=== PATIENT | male | born 1945 | race Caucasian/White ===

== ENCOUNTER 2017-01-16 03:29 | Emergency (ER) | payer MEDICARE ==
--- NOTE | 2017-01-16 09:56 | ER Document Report ---
ED Psych Disorder / Suicide - General Chief Complaint: Psych Problem Stated Complaint: PSYCH EVAL Notes: Patient is here for evaluation of depression and perhaps suicidal thoughts. Patient says he's been feeling depressed for quite some time now. Has not seen a counselor and is not on any current medications for a psychiatric disorders. His condition is of concern since he suddenly, and unexpectedly, had to put his 7-year-old dog to sleep yesterday. The dog was found to be ill and taken to the vet and a she was told that she had a terminal blood disorder and she was put to sleep. Patient is grieving over the loss of his dog. He says he has given some thoughts to suicide. He does own a rifle. Denies having attempted suicide in the past, however. He is and has children who live in [place] and other relatives that live in [place]. He says that he has financial concerns although he and his get by so long as he is living. Patient says that he misses his kids, who live in [place]. Last saw them a year or so ago. TRAVEL OUTSIDE OF THE [place] IN LAST 30 DAYS: No - Related Data Allergies/Adverse Reactions: Influenza Virus Vaccines Adverse Reaction (Unknown, Verified 01/16/17 04:15) Fever Past Medical History - Social History Smoking Status: Unknown if Ever Smoked Cigarette use (# per day): No Family History: Reviewed & Not Pertinent - Past Medical History Cardiac Medical History: Reports: Hx Coronary Artery Disease, Hx Hypercholesterolemia, Hx Hypertension, Other - 2 coronary artery stents Denies: Hx Heart Attack Pulmonary Medical History: Denies: Hx Asthma Endocrine Medical History: Reports: Hx Diabetes Mellitus Type 2, Hx Hypothyroidism Renal/ Medical History: Reports: Hx Renal InsufficiencyComment Only: Hx End Stage Renal Disease - 50% function of kidneys Psychiatric Medical History: Reports: Hx Depression Past Surgical History: Reports: Hx Cardiac Surgery - stents, Hx Coronary Stent, Hx Orthopedic Surgery - Immunizations Hx Diphtheria, Pertussis, Tetanus Vaccination: Yes Review of Systems - Review of Systems Notes: REVIEW OF SYSTEMS: CONSTITUTIONAL : Denies fever. EENT: Denies eye, ear, nose or mouth or throat pain or other symptoms. CARDIOVASCULAR: Denies chest pain. RESPIRATORY: Denies cough, chest congestion, or shortness of breath. GASTROINTESTINAL: Denies abdominal pain or nausea, vomiting, or diarrhea. GENITOURINARY: Denies difficulty or painful urinating, urinary frequency, blood in urine. MUSCULOSKELETAL: Denies back or neck pain. Denies joint pain or swelling. SKIN: Denies rash or skin lesions. NEUROLOGICAL: Denies LOC or altered mental status. Denies headache. Denies sensory loss or motor deficits. PSYCHIATRIC: Suffering from depression for "quite some time". No outpatient care previously. ALL OTHER SYSTEMS REVIEWED AND NEGATIVE. Physical Exam - Vital signs Vitals: Temp Pulse Resp Pulse Ox 97.6 F 87 20 100 01/16/17 04:11 01/16/17 04:11 01/16/17 04:11 01/16/17 04:11 Interpretation: Hypertensive - Notes Notes: PHYSICAL EXAMINATION: GENERAL: Well-appearing, in no acute distress. Blood pressure 180/64 in triage. Otherwise, all vital signs normal. HEAD: Atraumatic, normocephalic. NECK: Normal range of motion, supple. LUNGS: Breath sounds clear and equal bilaterally. HEART: Regular rate and rhythm without murmurs. ABDOMEN: Soft, nontender. No guarding or rebound. BACK: No tenderness throughout entire back. EXTREMITIES: Normal range of motion without pain. NEUROLOGICAL: Normal speech, normal gait. Normal sensory, motor, and reflex exams. Awake, alert, and oriented x3. Cranial nerves normal. PSYCH: Patient is visibly depressed. Near tears occasionally during our conversation. SKIN: Warm, dry, no rashes. Course - Re-evaluation Re-evalutation: 01/16/17 10:01 Patient will be assessed with lab studies and have asked for a mental health consult, hopefully for outpatient referral and care. 01/16/17 10:02 Patient did not take his medications yesterday or this morning so he is being given his home medicines to take at this time. 01/16/17 11:01 Patient evaluated by mental health and they feel he can be followed up as an outpatient if he wishes. They do not feel that he is acutely suicidal or in need of further services from them at this time. - Vital Signs Vital signs: Temp Pulse Resp BP Pulse Ox 97.8 F 94 14 182/70 H 98 01/16/17 08:28 01/16/17 08:28 01/16/17 08:28 01/16/17 08:28 01/16/17 08:28 - Laboratory Result Diagrams: 01/16/17 09:50 01/16/17 09:50 Laboratory results interpreted by me: 01/16/17 01/16/17 09:50 10:10 RBC 4.18 L Hgb 12.0 L Hct 35.8 L Seg Neutrophils % 79.3 H Urine Protein 100 H Urine Glucose (UA) 50 H Urine Ketones TRACE H Urine Blood SMALL H Ur Leukocyte Esterase TRACE H - EKG Interpretation by Me EKG shows normal: Sinus rhythm Rate: Normal Rhythm: NSR - At 83 Voltage: Increased voltage, Consistant with [facility] Discharge - Discharge Clinical Impression: Suicidal ideation Depression Qualifiers: Depression Type: unspecified Qualified Code(s): F32.9 - Major depressive disorder, single episode, unspecified Condition: Stable Disposition: HOME, SELF-CARE Additional Instructions: DEPRESSION: Your evaluation reveals that you have mental depression. While symptoms may be vague, they often include disturbance of sleep, fatigue, loss of appetite , and general loss of interest in life. While depression may be a side effect of drugs, or a reaction to a major change in your life, many cases have no known cause. If depression is acute, and related to a major loss in your life, you can expect it to clear completely with time. If you have been depressed a long time , are prone to repeated bouts of depression or low mood, or have been thinking of suicide, get help. Depression can be treated with anti-depressant medication and counselling. Long-term depression will often take a few weeks to clear, even with appropriate medication. Follow-up care is important. SUICIDAL IDEATION: Suicidal ideation is a common medical term for thoughts about suicide, which may be as detailed as a formulated plan, without the suicidal act itself. Although most people who undergo suicidal ideation do not commit suicide, some go on to make suicide attempts. The range of suicidal ideation varies greatly from fleeting to detailed planning, role playing, and unsuccessful attempts. While thoughts about suicide are common, most people do not carry out serious actions to commit suicide. Based upon your evaluation and discussion with you, we do not believe you are currently at risk to act upon your thoughts of suicide. You have agreed to return to the Emergency Department, at any time , if you feel inclined to act upon your suicidal thoughts. FOLLOW-UP CARE: If you have been referred to a physician for follow-up care, call the physician s office for an appointment as you were instructed or within the next two days. If you experience worsening or a significant change in your symptoms, notify the physician immediately or return to the Emergency Department at any time for re-evaluation. Mental health recommended follow-up at [facility]. At any time, if you feel you may do something harmful to herself or someone else , please return to the emergency department immediately for us to reevaluate your condition. Referrals: [facility] [Provider Group] - Follow up as needed
[2017-01-16 10:45] LABS: APPEARANCE,URINE SLIGHTLY-CLOUDY; BILIRUBIN,URINE NEGATIVE (NEGATIVE); GLUCOSE, URINE 50 mg/dL (NEGATIVE); KETONES,URINE TRACE mg/dL (NEGATIVE); LEUKOCYTE ESTERASE,URINE TRACE (NEGATIVE); NITRITE,URINE NEGATIVE (NEGATIVE); PROTEIN,URINE 100 mg/dL (NEGATIVE); URINE SPECIFIC GRAVITY 1.014; UROBILINOGEN,URINE NEGATIVE mg/dL (<2.0)
[2017-01-16 10:50] LABS: ABSOLUTE EOSINOPHILS # (AUTO) 0.1 10^3/uL (0.0-0.6); ABSOLUTE MONOCYTES (AUTO) 0.3 10^3/uL (0.1-1.4); ABSOLUTE NEUT (AUTO) 5.3 10^3/uL (1.7-8.2); BASOPHILS % (AUTO) 0.6 % (0-2); EOSINOPHILS % (AUTO) 0.8 % (0-6); HEMATOCRIT 35.8 % (37.9-51.0); HGB HCT DIFFERENCE 0.2; LYMPHOCYTES % (AUTO) 14.3 % (13-45); MEAN CORPUSCULAR HEMOGLOBIN 28.7 pg (27.0-33.4); MEAN CORPUSCULAR HGB CONC 33.5 g/dL (32.0-36.0); MEAN CORPUSCULAR VOLUME 86 fl (80-97); RED BLOOD COUNT 4.18 10^6/uL (4.35-5.55); RED CELL DISTRIBUTION WIDTH 13.7 % (11.5-14.0); SEGMENTED NEUTROPHILS % (AUTO) 79.3 % (42-78); WHITE BLOOD COUNT 6.6 10^3/uL (4.0-10.5)
[2017-01-16 11:05] LABS: URINE BARBITURATES SCREEN NEGATIVE; URINE METHADONE SCREEN NEGATIVE; URINE OPIATES LOW NEGATIVE; URINE PHENCYCLIDINE SCREEN NEGATIVE
[2017-01-16 11:10] LABS: ALANINE AMINOTRANSFERASE 41 U/L (21-72); ALBUMIN 4.6 g/dL (3.5-5.0); ALCOHOL 15 mg/dL (NONE DETECTED); ALKALINE PHOSPHATASE 74 U/L (38-126); ANION GAP 15 (5-19); ASPARTATE AMINO TRANSFERASE 34 U/L (17-59); BILIRUBIN,TOTAL 0.7 mg/dL (0.2-1.3); BLOOD UREA NITROGEN 26 mg/dL (7-20); CALCIUM 10.2 mg/dL (8.4-10.2); CARBON DIOXIDE 22 mmol/L (22-30); CHLORIDE 103 mmol/L (98-107); CREATININE RESULT 1.46 mg/dL (0.52-1.25); GLUCOSE 147 mg/dL (75-110); POTASSIUM 5.3 mmol/L (3.6-5.0); SODIUM 140.2 mmol/L (137-145); TOTAL PROTEIN 7.8 g/dL (6.3-8.2)
[2017-01-16 11:15] VITALS: BP 172/86
--- NOTE | 2017-01-16 11:25 | PSYCHOLOGICAL NOTE ---
Psych Note - Psych Note Psych Note: Patient is a 71 year old male who presented early this morning via EMS after his found him laying on the ground crying. She was reportedly concerned with his blood pressure as he denied taking his rx. Patient was reportedly despondent over the of his dog. Patient this morning states he was forced to make the decision to euthanize his dog yesterday after the dog abruptly fell ill. Patient states he is struggling with the grief over his dog, but also references his brother's a few months ago. Patient states his brother of a heart attack. Patient states this occurred in [place]. Patient denies any mental health history of outpatient or inpatient treatment. Patient denies wanting to follow up with an outpatient provider at this time to process his grief related sadness. Patient does report has had passive thoughts about suicide, but denies a plan. Patient referenced a shotgun in which he owns that is in the home. Patient's is bedside and states she has removed the shot gun. reports she is not concerned for his safety and that she would be agreeable to monitor patient and encourage follow up with a counselor. indicates that the patient has had "a lot of loss" and references 4 brothers who have . reports they are just ready to return home. Patient is A&O. Mood is sad with tearful affect. Patient denies current suicidal/homicidal ideations, intent, plan, or means. Patient denies A/V H; delusions not noted. Thought processes were organized. Conversational speech was low for rate, tone, and prosody. Intellectual abilities were estimated within average range. Attention and focus were fair. Insight, judgment, and impulse control were fair. Diagnosis: Deferred Patient is psychiatrically cleared for discharge and provided resources to assist in following up with counseling. Patient presents with acute sadness after the abrupt loss of his dog. Patient reports this is also causing him to remember watching his brothers hang a dog as children. Encouraged patient to process his grief, and also normalized his sadness and sense of loss. Patient' s reports no concerns for patient's safety and states she has his shotgun. I consulted with Dr. Bennett in regards to the care and management of this patient. ED MD is in agreement with disposition and recommendations.
--- NOTE | 2017-01-16 20:09 | EKG REPORT ---
SEVERITY:- ABNORMAL ECG - SINUS RHYTHM LEFT VENTRICULAR HYPERTROPHY BORDERLINE INFERIOR Q WAVES : Confirmed by: Nikia Zazueta 16-Jan-2017 20:08:22
== END 2017-01-16 11:13 | disposition home or self-care (01) ==
LOC: ER 03:29
DX: R45.851 Suicidal ideations (principal); F32.9 Major depressive disorder, single episode, unspecified
CPT/HCPCS: 36415; 80053; 80307; 81001; 85025; 93005; 93010; 99285

== ENCOUNTER 2017-03-19 02:51 | Emergency (ER) | payer MEDICARE ==
[2017-03-19] MEDS ORDERED: CEPHALEXIN 500 MG CAPSULE PO ONE (04:25)
--- NOTE | 2017-03-19 04:57 | ER Document Report ---
HPI - HPI Patient complains to provider of: finger infection Onset: Other - 3 days Onset/Duration: Persistent Quality of pain: Achy Pain Level: 4 Context: Patient complains of finger pain and swelling for the past 3 days. Patient denies any injury. Patient denies any fever Associated Symptoms: Other - Finger infection Exacerbated by: Movement Relieved by: Denies Similar symptoms previously: No Recently seen / treated by doctor: No - ROS ROS below otherwise negative: Yes Systems Reviewed and Negative: Yes All other systems reviewed and negative - CONSTITUTIONAL Constitutional: DENIES: Fever, Chills - MUSCULOSKELETAL Musculoskeletal: REPORTS: Extremity pain - right thumb, Swelling - DERM Skin Color: Erythema Skin Problems: None - NURSING COMMENTS Comment: pt c/c pain right thumb, thinks it may be infected from when he removed a hang nail., thumb is inflammed and red Past Medical History - General Information source: Patient - Social History Smoking Status: Never Smoker Cigarette use (# per day): No Chew tobacco use (# tins/day): No Frequency of alcohol use: None Drug Abuse: None Occupation: retired Lives with: Spouse/Significant other Family History: Reviewed & Not Pertinent Patient has suicidal ideation: No Patient has homicidal ideation: No - Past Medical History Cardiac Medical History: Reports: Hx Coronary Artery Disease, Hx Hypercholesterolemia, Hx Hypertension Denies: Hx Heart Attack Pulmonary Medical History: Denies: Hx Asthma Neurological Medical History: Denies: Hx Cerebrovascular Accident, Hx Seizures Endocrine Medical History: Reports: Hx Diabetes Mellitus Type 2, Hx Hypothyroidism Renal/ Medical History: Reports: Hx Renal Insufficiency. Denies: Hx Peritoneal Dialysis. Comment Only: Hx End Stage Renal Disease - 50% function of kidneys GI Medical History: Denies: Hx Hepatitis, Hx Hiatal Hernia, Hx Ulcer Psychiatric Medical History: Reports: Hx Depression Infectious Medical History: Denies: Hx Hepatitis Past Surgical History: Reports: Hx Cardiac Surgery - stents, Hx Coronary Stent, Hx Orthopedic Surgery. Denies: Hx Open Heart Surgery - CATH WITH 2 STENTS, Hx Pacemaker - Immunizations Hx Diphtheria, Pertussis, Tetanus Vaccination: Yes Vertical Provider Document - CONSTITUTIONAL Agree With Documented VS: Yes Exam Limitations: No Limitations General Appearance: WD/WN, No Apparent Distress - INFECTION CONTROL TRAVEL OUTSIDE OF THE [place] IN LAST 30 DAYS: No - HEENT HEENT: Atraumatic, Normocephalic - NECK Neck: Normal Inspection - RESPIRATORY Respiratory: No Respiratory Distress O2 Sat by Pulse Oximetry: 98 - CARDIOVASCULAR Pulses: Normal: Radial - MUSCULOSKELETAL/EXTREMETIES Musculoskeletal/Extremeties: MAEW, Tender - Patient with tenderness along nail bed of right thumb - NEURO Level of Consciousness: Awake, Alert, Appropriate Motor/Sensory: No Motor Deficit - DERM Integumentary: Warm, Dry Notes: Paronychia along right thumb nailbed Course - Vital Signs Vital signs: Temp Pulse Resp BP Pulse Ox 97.8 F 74 18 190/75 H 98 03/19/17 03:50 03/19/17 03:50 03/19/17 03:50 03/19/17 03:50 03/19/17 03:50 Procedures - Incision and Drainage Right Thumb Type: Simple I&D procedure: Betadine prep applied Incision Method: Incision made with needle Amount/type of drainage: moderate amount of purulent drainage Discharge - Discharge Clinical Impression: History of hypertension Paronychia Qualifiers: Laterality: right Qualified Code(s): L03.011 - Cellulitis of right finger Condition: Stable Disposition: HOME, SELF-CARE Instructions: Paronychia ([facility]), Post Incision and Drainage, Cephalexin ([facility]) Additional Instructions: Return immediately for any new or worsening symptoms Followup with your primary care provider, call tomorrow to make a followup appointment Your blood pressure was elevated today, recheck with your primary doctor and wants to days to this reevaluated Prescriptions: Cephalexin Monohydrate [Keflex 500 mg Capsule] 500 mg PO Q6H 5 Days Forms: Elevated Blood Pressure Referrals: ALEX MILLS MD [Primary Care Provider] - Follow up tomorrow
[2017-03-19] MEDS ORDERED: HYDROCODONE/ACETAMINOPHEN 5-325 MG 6 TAB/DSPK PO PRN (05:02)
[2017-03-19 05:53] VITALS: BP 181/71
== END 2017-03-19 05:52 | disposition home or self-care (01) ==
LOC: ER 02:51
PROC: 0H9FXZZ Drainage of Right Hand Skin, External Approach (ICD-10-PCS; principal; 2017-03-19)
DX: L03.011 Cellulitis of right finger (principal); M79.646 Pain in unspecified finger(s); M79.89 Other specified soft tissue disorders; I10 Essential (primary) hypertension
CPT/HCPCS: 99283; 73140; 10060; A9270 ×2

== ENCOUNTER 2018-10-02 10:03 | Emergency (ER) | payer MEDICARE ==
--- NOTE | 2018-10-02 10:51 | ER Document Report ---
HPI - HPI Pain Level: 5 Past Medical History - Social History Family History: Reviewed & Not Pertinent - Past Medical History Cardiac Medical History: Reports: Hx Coronary Artery Disease, Hx Hypercholesterolemia, Hx Hypertension Denies: Hx Heart Attack Pulmonary Medical History: Denies: Hx Asthma Neurological Medical History: Denies: Hx Cerebrovascular Accident, Hx Seizures Endocrine Medical History: Reports: Hx Diabetes Mellitus Type 2, Hx Hypothyroidism Renal/ Medical History: Reports: Hx Renal Insufficiency. Denies: Hx Peritoneal Dialysis. Comment Only: Hx End Stage Renal Disease - 50% function of kidneys GI Medical History: Denies: Hx Hepatitis, Hx Hiatal Hernia, Hx Ulcer Psychiatric Medical History: Reports: Hx Depression Infectious Medical History: Denies: Hx Hepatitis Past Surgical History: Reports: Hx Cardiac Surgery - stents, Hx Coronary Stent, Hx Orthopedic Surgery. Denies: Hx Open Heart Surgery - CATH WITH 2 STENTS, Hx Pacemaker - Immunizations Hx Diphtheria, Pertussis, Tetanus Vaccination: Yes Vertical Provider Document - INFECTION CONTROL TRAVEL OUTSIDE OF THE [place] IN LAST 30 DAYS: Yes Course - Vital Signs Vital signs: Temp Pulse Resp BP Pulse Ox 98.5 F 55 L 16 163/50 H 98 10/02/18 10:21 10/02/18 10:21 10/02/18 10:21 10/02/18 10:21 10/02/18 10:21 Discharge - Discharge Referrals: ALEX MILLS MD [Primary Care Provider] - Follow up as needed
--- NOTE | 2018-10-02 11:02 | ER Document Report ---
ED Medical Screen (RME) - General Chief Complaint: Hip Pain Stated Complaint: LEG PAIN Time Seen by Provider: 10/02/18 10:50 Mode of Arrival: Wheelchair Information source: Patient Notes: 73-year-old diabetic hypertensive male with bilateral peripheral edema is complaining of right hip pain that radiates into his right lower quadrant and right groin for 1 month. He has not talked to his primary care doctor about this. TRAVEL OUTSIDE OF THE [place] IN LAST 30 DAYS: Yes - Related Data Allergies/Adverse Reactions: Influenza Virus Vaccines Adverse Reaction (Unknown, Verified 10/02/18 10:14) Fever Past Medical History - Past Medical History Cardiac Medical History: Reports: Hx Coronary Artery Disease, Hx Hypercholesterolemia, Hx Hypertension Denies: Hx Heart Attack Pulmonary Medical History: Denies: Hx Asthma Neurological Medical History: Denies: Hx Cerebrovascular Accident, Hx Seizures Endocrine Medical History: Reports: Hx Diabetes Mellitus Type 2, Hx Hypothyroidism Renal/ Medical History: Reports: Hx Renal Insufficiency. Denies: Hx Peritoneal Dialysis. Comment Only: Hx End Stage Renal Disease - 50% function of kidneys GI Medical History: Denies: Hx Hepatitis, Hx Hiatal Hernia, Hx Ulcer Psychiatric Medical History: Reports: Hx Depression Infectious Medical History: Denies: Hx Hepatitis Past Surgical History: Reports: Hx Cardiac Surgery - stents, Hx Coronary Stent, Hx Orthopedic Surgery. Denies: Hx Open Heart Surgery - CATH WITH 2 STENTS, Hx Pacemaker - Immunizations Hx Diphtheria, Pertussis, Tetanus Vaccination: Yes Physical Exam - Vital signs Vitals: Temp Pulse Resp BP Pulse Ox 98.5 F 55 L 16 163/50 H 98 10/02/18 10:21 10/02/18 10:21 10/02/18 10:21 10/02/18 10:21 10/02/18 10:21 Course - Vital Signs Vital signs: Temp Pulse Resp BP Pulse Ox 98.5 F 55 L 16 163/50 H 98 10/02/18 10:21 10/02/18 10:21 10/02/18 10:21 10/02/18 10:21 10/02/18 10:21 Doctor's Discharge - Discharge Referrals: ALEX MILLS MD [Primary Care Provider] - Follow up as needed
--- NOTE | 2018-10-02 13:03 | ER Document Report ---
ED General - General Mode of Arrival: Wheelchair Information source: Patient TRAVEL OUTSIDE OF THE [place] IN LAST 30 DAYS: Yes - General Chief Complaint: Hip Pain Stated Complaint: LEG PAIN Time Seen by Provider: 10/02/18 10:50 Notes: Patient is a 73 year old male presenting to the emergency department complaining of right hip pain onset 3 weeks ago worsening recently. Patient states he is currently unable to lift his right leg off the bed and has pain with ambulation and movement. Patient states his pain is located in the right inguinal area and does not radiate into his testicles. Patient also complains of bilateral lower extremity swelling. He denies recent falls, numbness or tingling sensations, dysuria, urine or fecal incontinence or a history of back problems. Patient mentions having left shoulder pain, specifically stating when he reaches backwards he has difficulty reaching forward again. He further states he believes this is due to always laying on his left shoulder in attempt to alleviate his right hip pain. (NIKI RGAYSON) - Related Data Allergies/Adverse Reactions: Influenza Virus Vaccines Adverse Reaction (Unknown, Verified 10/02/18 10:14) Fever Past Medical History - General Information source: Patient - Social History Smoking Status: Never Smoker Cigarette use (# per day): No Chew tobacco use (# tins/day): No Smoking Education Provided: No Frequency of alcohol use: Rare Family History: Reviewed & Not Pertinent Patient has suicidal ideation: No Patient has homicidal ideation: No - Past Medical History Cardiac Medical History: Reports: Hx Coronary Artery Disease, Hx Hypercholesterolemia, Hx Hypertension Endocrine Medical History: Reports: Hx Diabetes Mellitus Type 2, Hx Hypothyroidism Renal/ Medical History: Reports: Hx Renal InsufficiencyComment Only: Hx End Stage Renal Disease - 50% function of kidneys Psychiatric Medical History: Reports: Hx Depression Past Surgical History: Reports: Hx Cardiac Surgery - stents, Hx Coronary Stent, Hx Orthopedic Surgery - Immunizations Hx Diphtheria, Pertussis, Tetanus Vaccination: Yes Review of Systems - Review of Systems Constitutional: No symptoms reported EENT: No symptoms reported Cardiovascular: No symptoms reported Respiratory: No symptoms reported Gastrointestinal: No symptoms reported Genitourinary: No symptoms reported Male Genitourinary: No symptoms reported Musculoskeletal: See HPI Skin: No symptoms reported Hematologic/Lymphatic: No symptoms reported Neurological/Psychological: No symptoms reported -: Yes All other systems reviewed and negative Physical Exam - Vital signs Vitals: Temp Pulse Resp BP Pulse Ox 98.5 F 55 L 16 163/50 H 98 10/02/18 10:21 10/02/18 10:21 10/02/18 10:21 10/02/18 10:21 10/02/18 10:21 - Notes Notes: GENERAL: Alert, interacts well. No acute distress. HEAD: Normocephalic, atraumatic. EYES: Pupils equal, round, and reactive to light. Extraocular movements intact. ENT: Oral mucosa moist, tongue midline. NECK: Full range of motion. Supple. Trachea midline. LUNGS: Clear to auscultation bilaterally, no wheezes, rales, or rhonchi. No respiratory distress. HEART: Regular rate and rhythm. No murmurs, gallops, or rubs. ABDOMEN: Soft, non-tender. Non-distended. Bowel sounds present in all 4 quadrants. EXTREMITIES: Moves all 4 extremities spontaneously. Able to lift the right leg approximately 1 inch off the bed. Able to bend the right knee by flexing at hip and knee 90 degrees each without assistance. Pain with logroll of right extremity, pain with internal rotation. No tenderness or pain to palpation of the sciatic nerve. Sensation is intact, no saddles anesthesia. 2+ pitting edema to the bilateral lower extremities to level of the knee, equal. Radial and dorsalis pedis pulses 2/4 bilaterally. No cyanosis. NEUROLOGICAL: Alert and oriented x3. Normal speech. Patellar DTRs 2+ bilaterally. PSYCH: Normal affect, normal mood. SKIN: Warm, dry. No rashes or lesions noted. (NIKI GRAYSON) Course - Re-evaluation Re-evalutation: 10/02/18 15:48 X-ray shows an irregularity and linear lucency in the posterior acetabulum of the right hip, this may be related to chronic degenerative change, if there is concern for possible fracture than CT of the hip may be indicated. CT scan of the right hip shows a ridge of osteophytes lateral posterior column which accounts for the plain film findings no fracture or dislocation no hematoma. I do not see any signs of nerve impingement, there is no evidence of spinal nerve compression. 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 He is able to ambulate, he is able to partially lift his right leg, I am able to move his right hip through full range of motion though it does cause pain. Straight leg test is negative. Patient will be discharged to home with muscle relaxers and encouraged to follow-up with orthopedic surgery as an outpatient. (DAVID RUANO) - Vital Signs Vital signs: Temp Pulse Resp BP Pulse Ox 97.4 F 66 18 199/68 H 98 10/02/18 16:09 10/02/18 16:09 10/02/18 16:09 10/02/18 16:09 10/02/18 16:09 Discharge - Discharge Clinical Impression: Right hip pain Osteoarthritis of right hip Qualifiers: Osteoarthritis type: unspecified Qualified Code(s): M16.11 - Unilateral primary osteoarthritis, right hip Condition: Stable Disposition: HOME, SELF-CARE Additional Instructions: Your x-ray looks like he might have a fracture of your right acetabulum however when we did a CAT scan it showed row of osteophytes in the posterior lateral wall. This is likely causing significant pain. You will need to see orthopedic surgery regarding possible solutions for this. They may recommend a hip replacement, they may recommend injections and they may not be able to do anything. I have prescribed muscle relaxers for your left shoulder pain, it may help with some of your right hip pain as well but the ultimate underlying problem is bony and it will not fix the underlying problem. Return to the emergency department for numbness, tingling, increasing difficulty walking, any difficulty with controlling your bowels or bladder. Prescriptions: Methocarbamol [Robaxin 750 mg Tablet] 750 mg PO ASDIR PRN #40 tablet PRN Reason: Referrals: ALEX MILLS MD [Primary Care Provider] - Follow up as needed AUGUSTA VALENTE DO [ACTIVE STAFF] - Follow up in 1 week Scribe Attestation: 10/02/18 18:29 I personally performed the services described in the documentation, reviewed and edited the documentation which was dictated to the scribe in my presence, and it accurately records my words and actions. (DAVID RUANO) Scribe Documentation - Scribe Written by Scribe:: Kyree Warren, 10/02/2018 13:04 acting as scribe for :: Arron
--- NOTE | 2018-10-02 13:50 | RADIOLOGY REPORT (SQ) ---
EXAM DESCRIPTION: HIP RIGHT AP/LATERAL COMPLETED DATE/TIME: 10/02/2018 1:36 pm REASON FOR STUDY: right hip pain, difficulty walking COMPARISON: None. NUMBER OF VIEWS: Two views. TECHNIQUE: AP pelvis and additional frog-leg view of the right hip. LIMITATIONS: None. FINDINGS: MINERALIZATION: Normal. RIGHT HIP: No fracture or dislocation. There is irregularity and linear radiolucency in the posterio r acetabulum. LEFT HIP: No fracture or dislocation. No worrisome bone lesions. PUBIS AND ISCHIUM: No fracture. PELVIS: No fracture. SACRUM: No fracture or dislocation. No worrisome bone lesions. LOWER LUMBAR SPINE: No fracture or dislocation. No worrisome bone lesions. No significant disc disea se. SOFT TISSUES: No findings. OTHER: Possible calculus in the left kidney versus focal dense material in the bowel. IMPRESSION: IRREGULARITY AND LINEAR RADIOLUCENCY IN THE POSTERIOR ACETABULUM OF THE RIGHT HIP. THIS MAY BE RELATED TO CHRONIC DEGENERATIVE CHANGE. IF THERE IS CONCERN FOR POSSIBLE FRACTURE, THEN CT O F THE HIP MAY BE INDICATED. TECHNICAL DOCUMENTATION: JOB ID: [id number] [employer]- All Rights Reserved Reading location - IP/workstation name: [email or web address]
--- NOTE | 2018-10-02 15:17 | RADIOLOGY REPORT (SQ) ---
EXAM DESCRIPTION: CT RT LOWER EXTREMITY WITHOUT COMPLETED DATE/TIME: 10/02/2018 3:02 pm REASON FOR STUDY: possible R posterior acetabular fracture COMPARISON: None. TECHNIQUE: CT scan of the right hip performed without intravenous or oral contrast. Images reviewed with soft tissue and bone windows. Reconstructed coronal and sagittal MPR images reviewed. All jonn ges stored on PACS. All CT scanners at this facility use dose modulation, iterative reconstruction, and/or weight based d osing when appropriate to reduce radiation dose to as low as reasonably achievable (ALARA). [facility]: Dose Right [facility]: CareDose [facility]: Dose Right [facility]: Teradose 4D [facility]: [employer] RADIATION DOSE: CT Rad equipment meets quality standard of care and radiation dose reduction techniq ues were employed. CTDIvol: 4.1 mGy. DLP: 98 mGy-cm. mGy. LIMITATIONS: None. FINDINGS: There is a ridge of osteophytes lateral posterior column which accounts for the plain film findings. No fracture or dislocation. No hematoma. IMPRESSION: Degenerative change. No acute findings. TECHNICAL DOCUMENTATION: JOB ID: [id number] Quality ID # [id number]: Final reports with documentation of one or more dose reduction techniques (e.g., Au tomated exposure control, adjustment of the mA and/or kV according to patient size, use of iterative reconstruction technique) 2010 [employer]- All Rights Reserved Reading location - IP/workstation name: [email or web address]
[2018-10-02 16:23] VITALS: BP 199/68
== END 2018-10-02 16:22 | disposition home or self-care (01) ==
LOC: ER 10:03
DX: M16.11 Unilateral primary osteoarthritis, right hip (principal); M25.551 Pain in right hip; M79.89 Other specified soft tissue disorders; M25.511 Pain in right shoulder; I25.10 Atherosclerotic heart disease of native coronary artery without angina pectoris; I10 Essential (primary) hypertension; E11.9 Type 2 diabetes mellitus without complications
CPT/HCPCS: 99284

== ENCOUNTER 2018-10-23 19:52 | Inpatient (IN) | payer MEDICARE ==
[2018-10-23] MEDS ORDERED: MORPHINE SULFATE 10 MG/ML INJ IV ONE ×2 (20:02→21:54)
[2018-10-23] MEDS ORDERED: NITROGLYCERIN/D5W 50 MG/250 ML RTUINJ IV PRN (20:02)
[2018-10-23 20:07] LABS: ABSOLUTE BASOPHILS # (AUTO) 0.1 10^3/uL (0.0-0.2); ABSOLUTE EOSINOPHILS # (AUTO) 0.2 10^3/uL (0.0-0.6); ABSOLUTE LYMPHOCYTES (AUTO) 1.9 10^3/uL (0.5-4.7); ABSOLUTE MONOCYTES (AUTO) 0.8 10^3/uL (0.1-1.4); BASOPHILS % (AUTO) 0.9 % (0-2); EOSINOPHILS % (AUTO) 1.9 % (0-6); HEMATOCRIT 20.4 % (37.9-51.0); LYMPHOCYTES % (AUTO) 24.1 % (13-45); MEAN CORPUSCULAR HEMOGLOBIN 24.2 pg (27.0-33.4); MEAN CORPUSCULAR HGB CONC 31.9 g/dL (32.0-36.0); MEAN CORPUSCULAR VOLUME 76 fl (80-97); MONOCYTES % (AUTO) 10.3 % (3-13); PLATELET COUNT 272 10^3/uL (150-450); RED BLOOD COUNT 2.69 10^6/uL (4.35-5.55); RED CELL DISTRIBUTION WIDTH 20.8 % (11.5-14.0); SEGMENTED NEUTROPHILS % (AUTO) 62.8 % (42-78); TOTAL CELLS COUNTED % (AUTO) 100 %
[2018-10-23 20:11] LABS: HEMOGLOBIN 6.5 g/dL (13.5-17.0)
[2018-10-23 20:17] LABS: ALANINE AMINOTRANSFERASE 14 U/L (21-72); ALBUMIN 3.9 g/dL (3.5-5.0); ALKALINE PHOSPHATASE 101 U/L (38-126); ANION GAP 17 (5-19); ASPARTATE AMINO TRANSFERASE 18 U/L (17-59); BILIRUBIN,DIRECT 0.2 mg/dL (0.0-0.4); BILIRUBIN,TOTAL 0.2 mg/dL (0.2-1.3); BLOOD UREA NITROGEN 42 mg/dL (7-20); CALCIUM 9.3 mg/dL (8.4-10.2); CARBON DIOXIDE 19 mmol/L (22-30); CHLORIDE 103 mmol/L (98-107); POTASSIUM 4.8 mmol/L (3.6-5.0)
--- NOTE | 2018-10-23 20:21 | RADIOLOGY REPORT (SQ) ---
EXAM DESCRIPTION: CHEST SINGLE VIEW COMPLETED DATE/TIME: 10/23/2018 8:12 pm REASON FOR STUDY: SOB; Chest pain COMPARISON: None. EXAM PARAMETERS: NUMBER OF VIEWS: One view. TECHNIQUE: Single frontal radiographic view of the chest acquired. RADIATION DOSE: NA LIMITATIONS: None. FINDINGS: LUNGS AND PLEURA: Mildly increased interstitial markings at the lung base may represent an element of pulmonary fibrosis. No focal consolidation. No large pleural effusion. No pneumothorax . MEDIASTINUM AND HILAR STRUCTURES: No masses. Contour normal. HEART AND VASCULAR STRUCTURES: Heart normal in size. Normal vasculature. BONES: No acute findings. HARDWARE: None in the chest. OTHER: No other significant finding. IMPRESSION: No evidence of acute cardiopulmonary abnormality. TECHNICAL DOCUMENTATION: JOB ID: [id number] [employer]- All Rights Reserved Reading location - IP/workstation name: [email or web address]
[2018-10-23 20:27] LABS: GLUCOSE 510 mg/dL (75-110)
[2018-10-23 20:28] LABS: CREATINE KINASE MB 3.35 ng/mL (<4.55); TROPONIN I 0.016 ng/mL
[2018-10-23] MEDS ORDERED: NORMAL SALINE 250 ML IV PRN (20:54)
[2018-10-23] MEDS ORDERED: LORAZEPAM INJ 2 MG/1 ML VIAL IV ONE ×2 (21:02→21:54)
[2018-10-23] MEDS ORDERED: INSULIN REG, HUMAN 100 UNIT/ML 3 ML VIAL (PYX) SUBCUT ONE (21:03)
--- NOTE | 2018-10-23 21:57 | ER Document Report ---
ED Cardiac - General Chief Complaint: Shortness Of Breath Stated Complaint: CHEST PAIN Time Seen by Provider: 10/23/18 20:00 Mode of Arrival: Ambulatory Information source: Patient TRAVEL OUTSIDE OF THE [place] IN LAST 30 DAYS: No - HPI Patient complains to provider of: Chest pain, Shortness of breath Chest pain location: Substernal Quality of pain: Heaviness, Pressure Severity now: Severe Severity at worst: Severe Chest pain precipitating factors: At Rest Cardiac risk factors: Hx MD Positive cardiac history: Yes Associated symptoms: Shortness of breath Exacerbated by: Denies Relieved by: Nothing Similar symptoms previously: Yes Recently seen / treated by doctor: No Notes: Patient is a 73-year-old male with a history of coronary artery disease, presenting to the emergency room today complaining of chest pain that started a few hours prior to emergency room arrival, he reports associated shortness of breath as well and swelling in his lower extremities, patient denies any fevers , no cough, cold or congestion, no nausea, vomiting or diarrhea, he denies any dark tarry stools or obvious blood in his stools, he does report an nosebleed a few days prior which was minimal - Related Data Allergies/Adverse Reactions: Influenza Virus Vaccines Adverse Reaction (Unknown, Verified 10/02/18 10:14) Fever Past Medical History - General Information source: Patient - Social History Smoking Status: Former Smoker Chew tobacco use (# tins/day): No Frequency of alcohol use: None Drug Abuse: None Family History: Reviewed & Not Pertinent Patient has suicidal ideation: No Patient has homicidal ideation: No - Past Medical History Cardiac Medical History: Reports: Hx Coronary Artery Disease, Hx Hypercholesterolemia, Hx Hypertension Denies: Hx Heart Attack Pulmonary Medical History: Denies: Hx Asthma Neurological Medical History: Denies: Hx Cerebrovascular Accident, Hx Seizures Endocrine Medical History: Reports: Hx Diabetes Mellitus Type 2, Hx Hypothyroidism Renal/ Medical History: Reports: Hx Renal Insufficiency. Denies: Hx Peritoneal Dialysis. Comment Only: Hx End Stage Renal Disease - 50% function of kidneys GI Medical History: Denies: Hx Hepatitis, Hx Hiatal Hernia, Hx Ulcer Psychiatric Medical History: Reports: Hx Depression Infectious Medical History: Denies: Hx Hepatitis Past Surgical History: Reports: Hx Cardiac Surgery - stents, Hx Coronary Stent, Hx Orthopedic Surgery. Denies: Hx Open Heart Surgery - CATH WITH 2 STENTS, Hx Pacemaker - Immunizations Hx Diphtheria, Pertussis, Tetanus Vaccination: Yes Review of Systems - Review of Systems Constitutional: No symptoms reported EENT: No symptoms reported Cardiovascular: See HPI Respiratory: See HPI Gastrointestinal: No symptoms reported Genitourinary: No symptoms reported Male Genitourinary: No symptoms reported Musculoskeletal: No symptoms reported Skin: No symptoms reported Hematologic/Lymphatic: No symptoms reported Neurological/Psychological: No symptoms reported -: Yes All other systems reviewed and negative Physical Exam - Vital signs Vitals: Resp Pulse Ox 33 H 100 10/23/18 19:56 10/23/18 19:56 Interpretation: Tachycardic - General General appearance: Alert In distress: Moderate - HEENT Head: Normocephalic, Atraumatic Eyes: Normal Conjunctiva: Normal Pupils: PERRL Pharynx: Normal Neck: Normal - Respiratory Respiratory status: No respiratory distress Chest status: Nontender Breath sounds: Normal Chest palpation: Normal - Cardiovascular Rhythm: Regular, Tachycardia Heart sounds: Normal auscultation Murmur: No - Abdominal Inspection: Normal Distension: No distension Bowel sounds: Normal Tenderness: Nontender Organomegaly: No organomegaly - Back Back: Normal, Nontender - Extremities General upper extremity: Normal inspection, Nontender, Normal color, Normal ROM , Normal temperature General lower extremity: Nontender, Edema - Pitting edema to bilateral lower extremities, Normal color, Normal ROM, Normal temperature. No: Jelena's sign - Neurological Neuro grossly intact: Yes Cognition: Normal Orientation: AAOx4 Radha Coma Scale Eye Opening: Spontaneous [place] Coma Scale Verbal: Oriented Radha Coma Scale Motor: Obeys Commands [place] Coma Scale Total: 15 Speech: Normal Motor strength normal: LUE, RUE, LLE, RLE Sensory: Normal - Psychological Associated symptoms: Anxious - Skin Skin Temperature: Warm Skin Moisture: Dry Skin Color: Pale Course - Re-evaluation Re-evalutation: 10/24/18 00:55 Patient was discussed with cardiology on-call, Dr. Marin, I discussed patient's presentation, is a history of coronary artery disease with previous stents in [facility], his EKG findings as well as his lab findings including a hemoglobin of 6.8 and an elevated troponin of 0.241, Dr. Marin is in agreement with admitting patient at this facility, recommends further anemia studies as his ischemic changes and chest pain are likely related to his low hemoglobin today, he recommends patient be started on a Cardizem drip for rate and blood pressure control, but avoid all blood thinners, do not start patient on a heparin drip at this time, this plan was discussed with patient and at bedside who are in agreement with admission at this facility, patient was then discussed with the hospitalist who will admit for further evaluation and treatment, patient is resting comfortably and pain-free at this time - Vital Signs Vital signs: Temp Pulse Resp BP Pulse Ox 98.3 F 18 179/77 H 97 10/23/18 23:11 10/24/18 00:46 10/24/18 00:46 10/24/18 00:46 - Laboratory Result Diagrams: 10/23/18 19:55 10/23/18 19:55 Laboratory results interpreted by me: 10/23/18 10/23/18 10/23/18 19:55 19:55 19:55 RBC 2.69 L Hgb 6.5 L Hct 20.4 L MCV 76 L MCH 24.2 L MCHC 31.9 L RDW 20.8 H Carbon Dioxide 19 L BUN 42 H Creatinine 1.69 H Est GFR ( Amer) 48 L Est GFR (Non-Af Amer) 40 L Glucose 510 H* POC Glucose ALT 14 L Lipase 646.4 H Crossmatch 10/23/18 10/23/18 20:21 23:37 RBC Hgb Hct MCV MCH MCHC RDW Carbon Dioxide BUN Creatinine Est GFR ( Amer) Est GFR (Non-Af Amer) Glucose POC Glucose 374 H ALT Lipase Crossmatch See Detail - Diagnostic Test Radiology reviewed: Image reviewed, Reports reviewed - EKG Interpretation by Me EKG shows normal: Sinus rhythm Rate: Normal Rhythm: NSR Additional EKG results interpreted by me: 10/24/18 00:56 ST depressions in leads V4 and V5 Critical Care Note - Critical Care Note Total time excluding time spent on procedures (mins): 50 Comments: Patient with chest pain, persistently hypertensive with tachycardia Discharge - Discharge Clinical Impression: NSTEMI (non-ST elevated myocardial infarction) Anemia Qualifiers: Anemia type: unspecified type Qualified Code(s): D64.9 - Anemia, unspecified CKD (chronic kidney disease) Qualifiers: Chronic kidney disease stage: unspecified stage Qualified Code(s): N18.9 - Chronic kidney disease, unspecified Chest pain Qualifiers: Chest pain type: unspecified Qualified Code(s): R07.9 - Chest pain, unspecified Condition: Serious Disposition: ADMITTED INPATIENT Admitting Provider: Hospitalist Unit Admitted: ICU Referrals: ALEX MILLS MD [Primary Care Provider] - Follow up as needed
--- NOTE | 2018-10-23 22:04 | RADIOLOGY REPORT (SQ) ---
EXAM DESCRIPTION: CT CHEST ANGIOGRAPHY WITHOUT THEN WITH IV CONTRAST COMPLETED DATE/TME: 10/23/2018 21:02 CLINICAL HISTORY: 73 years, Male, SOB COMPARISON: None. TECHNIQUE: 630 Images stored on PACS. All CT scanners at this facility use dose modulation, iterative reconstruction, and/or weight based dosing when appropriate to reduce radiation dose to as low as reasonably achievable (ALARA). Axial images were obtained with coronal and sagittal MIPS reconstructions [facility]: Dose Right [facility]: CareDose [facility]: Dose Right [facility]: Teradose 4D [facility]: [employer] LIMITATIONS: None. FINDINGS: The mediastinal vasculature enhances normally. There is no intraluminal filling defect to suggest pulmonary embolus. Negative for thoracic aortic aneurysm or dissection. Coronary artery calcifications are noted. The heart and pericardium are otherwise unremarkable. No mediastinal or hilar adenopathy. The visualized thyroid gland enhances normally. Limited evaluation of the upper abdomen demonstrates a 2.3 x 1.6 cm fat density lesion of the left adrenal gland, consistent with adenoma. Osseous structures are grossly intact. No pneumothorax. The visualized airways are patent. The lungs are clear. IMPRESSION: Negative for acute intrathoracic process. Negative for pulmonary embolus, thoracic aortic aneurysm, or dissection. TECHNICAL DOCUMENTATION: Quality ID # [id number]: Final reports with documentation of one or more dose reduction techniques (e.g., Automated exposure control, adjustment of the mA and/or kV according to patient size, use of iterative reconstruction technique) copyright 2011 [employer]- All Rights Reserved
[2018-10-23] MEDS ORDERED: NORMAL SALINE 1000 ML 1,000 ML IV ONE (22:07)
[2018-10-24] MEDS ORDERED: DILTIAZEM HCL/D5W 125 MG/125 ML RTUINJ IV PRN (00:53)
[2018-10-24] MEDS ORDERED: METOPROLOL TARTRATE PF/INJ 5 MG/5 ML SDV IV ONE (01:01)
[2018-10-24] MEDS ORDERED: IPRATROPIUM/ALBUTEROL 0.5-2.5 MG/3 ML AMPUL NEB PRN (01:39)
[2018-10-24] MEDS ORDERED: PROMETHAZINE HCL INJ 25 MG/1 ML VIAL IV PRN ×2 (01:39→09:00)
[2018-10-24] MEDS ORDERED: MAG HYDROX/AL HYDROX/SIMETH SUSP 30 ML UDCUP PO PRN (01:39)
[2018-10-24] MEDS ORDERED: PROMETHAZINE HCL 25 MG TABLET PO PRN (01:39)
[2018-10-24] MEDS ORDERED: ACETAMINOPHEN 325 MG TABLET PO PRN (01:39)
[2018-10-24] MEDS ORDERED: FUROSEMIDE INJ/PF 40 MG/4 ML SDV IV ONE (01:46)
[2018-10-24] MEDS ORDERED: NITROGLYCERIN 0.4 MG/TAB 25 TAB/BOTTLE SL PRN (01:48)
[2018-10-24] MEDS ORDERED: NITROGLYCERIN/D5W 50 MG/250 ML RTUINJ IV PRN (01:48)
[2018-10-24] MEDS ORDERED: DEXTROSE 50%-WATER 25 GM/50 ML DISP.SYRIN IV PRN ×2 (01:49)
[2018-10-24] MEDS ORDERED: GLUCAGON,HUMAN RECOMB 1 MG INJ IM PRN (01:49)
[2018-10-24] MEDS ORDERED: DEXTROSE 40% GEL 15 GM TUBE PO PRN ×2 (01:49)
[2018-10-24] MEDS ORDERED: INSULIN LISPRO 100 UNIT/ML 3 ML VIAL SUBCUT PRN ×2 (01:49→08:42)
[2018-10-24] MEDS ORDERED: BENZONATATE 100 MG CAPSULE PO ONE (01:54)
[2018-10-24] MEDS ORDERED: METOPROLOL TARTRATE PF/INJ 5 MG/5 ML SDV IV PRN (01:56)
[2018-10-24] MEDS ORDERED: METOPROLOL SUCCINATE 50 MG TAB.SR.24H PO ONE (01:57)
[2018-10-24 02:24] LABS: ABSOLUTE RETICS # 0.067 10^6/uL (0.028-0.122); RETICULOCYTE COUNT (AUTO) 2.49 % (0.66-2.85)
[2018-10-24 02:30] LABS: IRON(TIBC) 28.2 ug/dL (49-181)
--- NOTE | 2018-10-24 02:36 | PDOC H&P ---
History of Present Illness Admission Date/PCP: 10/24/2018 ALEX MILLS MD Patient complains of: Chest pain History of Present Illness: DONNA BERG is a 73 year old male with medical history of coronary arterial disease with [address], diabetes mellitus type 2, hypertension, comes to the emergency department complaining of chest pain. Patient tells me that his chest pain has a started a few months ago. Today patient was having some coffee at 7 PM, went to the garage looking for a tool and suddenly it started with retrosternal chest pain, he points from the epigastric area to the neck area including his throat, 10/10 in intensity, sharp and burning in nature, he was feeling a choking sensation, this was associated with shortness of breath, dizziness, denies nausea, vomiting, diaphoresis. Patient has seen his business applications analyst with apparently no new recommendations. His chest pain is usually exertional. Chest pain lasted about 2 hours and in the emergency department patient was initiated on nitroglycerin infusion, given a total of 10 mg of IV morphine, but it him I want to see him he was chest pain-free. Troponins has been elevated 0.0 16 and second 1 0.241. EKG shows sinus tachycardia, [address] depressions in the lateral leads. Patient has chronic lower extremities edema that has been worse from before. Patient also tells me that he is having episodes of blood in his mouth when he is brushing his teeth initially dark now bright red, denies any vomiting or coughing any blood. He denies any melanotic stools and his tells me that they are sometimes dark brown but no black tarry stools. Denies having any history of GI bleeding. Last EGD and colonoscopy 4 months ago positive only for a colonic polyp that was removed, Laboratory reveal hemoglobin of 6.5 and hematocrit of 20 In the ED patient also with uncontrolled blood sugars, initially 510 mg/dL. At the time I went to evaluate the patient I have noticed that the patient was saturating 88% on 3-1/2 L nasal cannula, patient does not have any history of chronic respiratory failure and is not on home oxygen. Chest x-ray negative and CTA is negative for PE. A total of 1250 IV fluids ordered in the ED. ProBNP 464, no prior to compare to. Initial blood pressure 188/85 but patient has missed his night medications. Past Medical History Cardiac Medical History: Reports: Coronary Artery Disease, Hyperlipidema, Hypertension Denies: Myocardial Infarction Pulmonary Medical History: Denies: Asthma Neurological Medical History: Denies: Seizures Endocrine Medical History: Reports: Diabetes Mellitus Type 2, Hypothyroidism Renal/ Medical History: Comment Only: End Stage Renal Disease - 50% function of kidneys GI Medical History: Denies: Hepatitis, Hiatal Hernia Psychiatric Medical History: Reports: Depression Hematology: Reports: Anemia - HX, TOOK IRON OTC, NOT PRESENTLY Denies: Sickle Cell Disease Past Surgical History Past Surgical History: Reports: Coronary Stent - To a stent in 2012, Orthopedic Surgery Denies: Pacemaker Social History Information Source: Patient Smoking Status: Former Smoker - Quit in 1979, used to smoke 3 packs/day Frequency of Alcohol Use: Occasional Hx Recreational Drug Use: No Hx Prescription Drug Abuse: No Past Social History Note: Lives with his who is at the bedside Family History Family History: Father and mother when they were around 100 years old, healthy. He is sister, and 2 brothers had colon cancer, once brother when he was 53 years old Parental Family History Reviewed: Yes - As above Children Family History Reviewed: Yes Sibling(s) Family History Reviewed.: Yes Medication/Allergy Home Medications: Amlodipine Besylate 10 mg PO DAILY 01/01/15 Aspirin [Aspirin 81 mg Chewable Tablet] 81 mg PO DAILY 01/01/15 Clopidogrel Bisulfate [Plavix 75 mg Tablet] 75 mg PO DAILY 01/01/15 Glimepiride [Amaryl 4 mg Tablet] 4 mg PO DAILY 01/01/15 Metoprolol Succinate [Toprol Xl 50 mg Tab.sr] 50 mg PO DAILY 01/01/15 Clonidine HCl 0.2 mg PO DAILY 07/07/16 Furosemide 20 mg PO DAILY 07/07/16 Cephalexin Monohydrate [Keflex 500 mg Capsule] 500 mg PO Q6H 5 Days capsule Methocarbamol [Robaxin 750 mg Tablet] 750 mg PO ASDIR PRN #40 tablet 10/02/18 Allergies/Adverse Reactions: Influenza Virus Vaccines Adverse Reaction (Unknown, Verified 10/02/18 10:14) Fever Review of Systems Review of Systems: As outlined above, all others negative Physical Exam Vital Signs: Temp Pulse Resp BP Pulse Ox 98 F 98 19 188/85 H 95 10/24/18 01:45 10/24/18 01:45 10/24/18 01:45 10/24/18 01:45 10/24/18 01:45 Intake & Output 10/22/18 10/23/18 10/24/18 06:59 06:59 06:59 Intake Total 1300 Output Total 1100 Balance 200 Weight 82.554 kg Additional comments: General appearance: Well-developed, well-nourished, alert and cooperative, and appears to be in no acute distress Head: Normocephalic Eyes: PEERL, EOMI, vision is grossly intact. Ears: External auditory canal and tympanic membranes clear, hearing grossly intact. Nose: No nasal discharge. Throat: Oral cavity and pharynx normal. No inflammation, swelling, exudate or lesions. Neck: Neck supple, nontender without lymphadenopathy, masses or thyromegaly. Cardiac: Normal S1 and S2. No S3, S4 or murmurs. Rhythm is regular and mildly tachycardic. There is pallor. Extremities are warm and well perfused. Capillary refill is less than 2 seconds. No carotid bruits. Thorax: No reproducible pain to palpation. Lungs: Clear to auscultation and percussion without rales, rhonchi, wheezing. Has moderate bilateral diminished breath sounds. Not using accessory muscles. Abdomen: Positive bowel sounds. Soft. Nondistended, nontender. No guarding or rebound. No masses. No hepatosplenomegaly Extremities: No significant deformity or joint abnormality. 2+ pitting lower extremities edema. Peripheral pulses intact. No varicosities. Neurological: Cranial nerves II through XII grossly intact. Strength and sensation symmetric and intact throughout. Reflexes 2+ throughout. Skin: Skin pale, normal texture and turgor with no lesions or eruptions, warm and dry. Psychiatric: The mental examination revealed the patient was oriented to person , place, and time. The patient was able to demonstrate good judgment on recent , without hallucinations, abnormal affect or abnormal behaviors. Results Laboratory Results: 10/23/18 19:55 10/23/18 19:55 10/23/18 10/23/18 10/23/18 19:55 19:55 19:55 WBC 8.0 RBC 2.69 L Hgb 6.5 L Hct 20.4 L MCV 76 L MCH 24.2 L MCHC 31.9 L RDW 20.8 H Plt Count 272 Seg Neutrophils % 62.8 Lymphocytes % 24.1 Monocytes % 10.3 Eosinophils % 1.9 Basophils % 0.9 Absolute Neutrophils 5.0 Absolute Lymphocytes 1.9 Absolute Monocytes 0.8 Absolute Eosinophils 0.2 Absolute Basophils 0.1 Sodium 139.0 Potassium 4.8 Chloride 103 Carbon Dioxide 19 L Anion Gap 17 BUN 42 H Creatinine 1.69 H Est GFR ( Amer) 48 L Est GFR (Non-Af Amer) 40 L Glucose 510 H* Calcium 9.3 Total Bilirubin 0.2 AST 18 ALT 14 L Alkaline Phosphatase 101 Total Protein 7.0 Albumin 3.9 Lipase 646.4 H Stool Occult Blood Blood Type Antibody Screen 10/23/18 10/23/18 20:21 20:36 WBC RBC Hgb Hct MCV MCH MCHC RDW Plt Count Seg Neutrophils % Lymphocytes % Monocytes % Eosinophils % Basophils % Absolute Neutrophils Absolute Lymphocytes Absolute Monocytes Absolute Eosinophils Absolute Basophils Sodium Potassium Chloride Carbon Dioxide Anion Gap BUN Creatinine Est GFR ( Amer) Est GFR (Non-Af Amer) Glucose Calcium Total Bilirubin AST ALT Alkaline Phosphatase Total Protein Albumin Lipase Stool Occult Blood NEGATIVE Blood Type O POSITIVE Antibody Screen NEGATIVE 10/23/18 10/23/18 19:55 23:30 CK-MB (CK-2) 3.35 Troponin I 0.016 0.241 NT-Pro-B Natriuret Pep 464 EKG Comments: Sinus tachycardia at 150 bpm, ST depressions in lateral leads Impressions: Chest X-Ray 10/23/18 19:55 IMPRESSION: No evidence of acute cardiopulmonary abnormality. Chest/Abdomen CTA 10/23/18 21:02 IMPRESSION: Negative for acute intrathoracic process. Negative for pulmonary embolus, thoracic aortic aneurysm, or dissection. TECHNICAL DOCUMENTATION: Quality ID # [id number]: Final reports with documentation of one or more dose reduction techniques (e.g., Automated exposure control, adjustment of the mA and/or kV according to patient size, use of iterative reconstruction technique) copyright 2011 [employer]- All Rights Reserved Assessment & Plan - Diagnosis (1) Severe anemia Is this a current diagnosis for this admission?: Yes Plan: Patient comes with symptomatic anemia, found with hemoglobin of 6.5 and hematocrit of 20, he tells me that for the last few months every time he brushed his teeth finds blood, initially dark blood and lately has been bright blood, he denies been coughing or vomiting at that time. Patient had an EGD and colonoscopy about 4 months ago and a polyp was removed. Patient follows with GI Dr. Obrien in [place]. I am sending the anemia workup. 2 units of PRBC has been ordered in the ED. Occult blood in the stools negative. No active bleeding. Unknown home medications as his did not bring them she does not remember the names. (2) Elevated troponin Is this a current diagnosis for this admission?: Yes Plan: Troponin 0.0 160 0.241, unclear if this is in a STEMI or this is demand ischemia. Patient tells me that he is having episodes of exertional chest pain and shortness of breath for the last few months, he has seen his business applications analyst with no changes in his medications. We will continue cycling his cardiac enzymes. Cardiology evaluation. Telemetry monitoring. Patient has been initiated on nitroglycerin infusion and I will continue with this as at this point patient is chest pain-free. Echocardiogram ordered. (3) Acute worsening of stage 3 chronic kidney disease Is this a current diagnosis for this admission?: Yes Plan: BUN 42 and creatinine 1.69, last creatinine was on 12/2016 with a creatinine 1.46 , seems that the patient is CKD stage III. Unclear if this is his new baseline or mild acute renal failure. Will reassess renal panel in the morning. (4) Hyperglycemia Is this a current diagnosis for this admission?: Yes Plan: Blood sugar 510 initially, given 10 units of insulin lispro subcu, subsequently blood sugar 374, will place the patient on Accu-Cheks every 3 hours with insulin lispro sliding scale and hypoglycemia protocol. We will resume his diabetic medication as soon as bring list of current medications. (5) Elevated lipase Is this a current diagnosis for this admission?: Yes Plan: Chronic elevation of lipase, 646 now, December 2014 was 520. (6) Hypoxia Is this a current diagnosis for this admission?: Yes Plan: We will name this as acute hypoxic respiratory failure as he is saturating 88% to 90% on 3-1/2 L nasal cannula, the patient does not have history of chronic respiratory failure nor is on oxygen at home, patient is very comfortable and is not complaining of shortness of breath, by the time I was talking to him he is oxygenation was dropping to the low 80s. So far chest x-ray is negative. By the time I left the room the nurse called me and tells me that the patient seems to be a little bit more hypoxic with mild cough and a little shortness of breath, probably he has some fluid overload, I ordered 40 mg of IV Lasix. A total of 1250 saline ordered in the ED. (7) CAD (coronary artery disease) Qualifiers: Associated angina: with unspecified angina Is this a current diagnosis for this admission?: Yes Plan: Patient has coronary artery disease with 2 stents placed in 2013, and creative his symptomatology in addition to severe anemia is due to anginal symptoms. Resume home medications. (8) Diabetes mellitus type 2 in obese Is this a current diagnosis for this admission?: Yes (9) Hypertension Qualifiers: Hypertension type: essential hypertension Qualified Code(s): I10 - Essential (primary) hypertension Is this a current diagnosis for this admission?: Yes Plan: Uncontrolled hypertension, blood pressure 188/85, 5 mg of IV metoprolol given, mild improvement I will give 50 grams of p.o. metoprolol. tells me that he missed his night antihypertensives but she does not remember the names. (10) DVT prophylaxis Is this a current diagnosis for this admission?: Yes Plan: Lovenox - Time Time Spent: 50 to 70 Minutes - Inpatient Certification Based on my medical assessment, after consideration of the patient's comorbidities, presenting symptoms, or acuity I expect that the services needed warrant INPATIENT care.: Yes I certify that my determination is in accordance with my understanding of Medicare's requirements for reasonable and necessary INPATIENT services [42 CFR 412.3e].: Yes Medical Necessity: Risk of Diagnosis Which Will Require Inpatient Eval/Care/ Monitoring - Risk of acute respiratory failure or worsening cardiac symptomatology with cardiac arrest - Plan Summary Plan Summary: Case discussed with patient and , agree with plan.
[2018-10-24 05:55] LABS: ABSOLUTE BASOPHILS # (AUTO) 0.1 10^3/uL (0.0-0.2); ABSOLUTE EOSINOPHILS # (AUTO) 0.1 10^3/uL (0.0-0.6); ABSOLUTE LYMPHOCYTES (AUTO) 1.2 10^3/uL (0.5-4.7); ABSOLUTE MONOCYTES (AUTO) 0.7 10^3/uL (0.1-1.4); ABSOLUTE NEUT (AUTO) 7.9 10^3/uL (1.7-8.2); BASOPHILS % (AUTO) 0.6 % (0-2); EOSINOPHILS % (AUTO) 0.8 % (0-6); HEMATOCRIT 26.9 % (37.9-51.0); LYMPHOCYTES % (AUTO) 11.7 % (13-45); MEAN CORPUSCULAR HEMOGLOBIN 25.1 pg (27.0-33.4); MEAN CORPUSCULAR HGB CONC 33.6 g/dL (32.0-36.0); MEAN CORPUSCULAR VOLUME 75 fl (80-97); MONOCYTES % (AUTO) 7.2 % (3-13); PLATELET COUNT 261 10^3/uL (150-450); RED CELL DISTRIBUTION WIDTH 20.3 % (11.5-14.0); SEGMENTED NEUTROPHILS % (AUTO) 79.7 % (42-78); TOTAL CELLS COUNTED % (AUTO) 100 %
[2018-10-24] MEDS ORDERED: HEPARIN SOD (PORCINE) 5,000 UNIT/ML 1 ML SYRINGE SUBCUT SCH (06:00)
[2018-10-24 06:05] LABS: INTERNATIONAL RATION (INR) 0.96; PARTIAL THROMBOPLASTIN TIME 26.9 SEC (23.5-35.8); PROTHROMBIN TIME 13.3 SEC (11.4-15.4)
[2018-10-24 06:13] LABS: ANION GAP 14 (5-19); BLOOD UREA NITROGEN 36 mg/dL (7-20); CALCIUM 9.5 mg/dL (8.4-10.2); CARBON DIOXIDE 22 mmol/L (22-30); CHLORIDE 108 mmol/L (98-107); GLUCOSE 303 mg/dL (75-110); SODIUM 143.7 mmol/L (137-145)
[2018-10-24 06:24] LABS: CREATINE KINASE MB 30.9 ng/mL (<4.55)
[2018-10-24 06:45] LABS: ARTERIAL BLOOD BASE EXCESS -0.5 mmol/L; ARTERIAL BLOOD H2CO3 1.02 mmol/L (1.05-1.35); ARTERIAL BLOOD HCO3 23.3 mmol/L (20-24); ARTERIAL BLOOD O2 SATURATION 94.2 % (94-98); ARTERIAL BLOOD PH 7.45 (7.35-7.45); ARTERIAL BLOOD PO2 66.4 mmHg (80-100); ARTERIAL BLOOD TOTAL CO2 24.3 mmol/L (23-27)
[2018-10-24 06:56] LABS: TROPONIN I 11.3 ng/mL
[2018-10-24 07:15] LABS: ARTERIAL BLOOD FIO2 2LNC
--- NOTE | 2018-10-24 07:42 | EKG REPORT ---
SEVERITY:- ABNORMAL ECG - SINUS TACHYCARDIA PROBABLE LVH WITH SECONDARY REPOL ABNRM ST DEPRESSION, CONSIDER ISCHEMIA, ANT-LAT LDS : Confirmed by: Diego Queen MD 24-Oct-2018 07:41:40
--- NOTE | 2018-10-24 07:42 | EKG REPORT ---
SEVERITY:- ABNORMAL ECG - SINUS TACHYCARDIA PROBABLE LVH WITH SECONDARY REPOL ABNRM ST DEPRESSION, CONSIDER ISCHEMIA, DIFFUSE LDS : Confirmed by: Diego Queen MD 24-Oct-2018 07:42:00
--- NOTE | 2018-10-24 07:42 | EKG REPORT ---
SEVERITY:- ABNORMAL ECG - SINUS TACHYCARDIA PROBABLE LVH WITH SECONDARY REPOL ABNRM ST DEPRESSION, CONSIDER ISCHEMIA, ANT-LAT LDS : Confirmed by: Diego Queen MD 24-Oct-2018 07:41:28
[2018-10-24] MEDS: NICARDIPINE HCL RTU, ISO-OS 20 MG/200 ML RTUINJ IV PRN ×2 (09:11→11:49)
[2018-10-24] MEDS ORDERED: LEVOTHYROXINE SODIUM 0.075 MG TABLET PO SCH (10:00)
--- NOTE | 2018-10-24 10:07 | TRANSFER SUMMARY E ---
Transfer Summary NAME: DONNA BERG : 1945 AGE: 73Y ADMITTED: 10/24/2018 TRANSFERRED: 10/24/2018 CODE STATUS: FULL CODE. PRIMARY CARE PROVIDER: Dr. Sally Roldan CLIENT COORDINATOR: [facility] TRANSFER DIAGNOSES: Includes: 1. Non-STEMI. 2. Coronary artery disease, history of 2 stents. 3. Acute blood loss anemia secondary to suspected GI losses. 4. Iron deficiency anemia. 5. Suspicion of peptic ulcer disease given persistent epigastric pain and mildly elevated lipase. 6. Poorly controlled diabetes mellitus type 2 with presenting glucose of 510. 7. Hypothyroidism. 8. Hypertensive emergency. 9. Chronic kidney disease stage 3 with a baseline creatinine of 1.5. CURRENT MEDICATIONS: Include: 1. Nitro drip, which is currently maxed out. 2. Cardene drip, just been started. 3. Phenergan 25 mg p.o. q. 4 hours p.r.n. 4. Tylenol 650 mg p.o. q. 4 hours p.r.n. 5. Maalox 30 mL p.o. q. 6 hours. 6. Novolog sliding scale coverage. 7. Metoprolol 5 mg IV q. 6 hours p.r.n. 8. Heparin 5000 units subcu q. 8 hours. DIET: Will be made n.p.o. for transfer. ACTIVITY: Will be on bedrest. CONDITION: Critical. DIAGNOSTICS: Lab values are as follows: Hematology obtained on 10/24/2018: WBCs are 10.0, hemoglobin is 9.0, hematocrit is 26.9, platelet count is 261,000. Coagulation obtained on 10/24/2018: PT is 13.3, INR is 0.96. ABG obtained on 10/24/2018: PH is 7.45, PCO2 is 34, PO2 is 66.4, bicarb is 23.3, total CO2 is 24.3. Chemistry obtained on 10/24/2018: Sodium is 143, potassium 5.0, chloride is 108, carbon dioxide 22, BUN 36, creatinine is 0.47, glucose 303, calcium is 9.5. Magnesium is pending. Iron is 2.8. TIBC is 405, percent saturation is 7, ferritin is 7.10, total bilirubin 0.2. AST 18, ALT is 14, Alk phos 101, CK is 716, troponin is 30.90. BNP is 390. Total protein 7.0, albumin 3.9, lipase is 317. B12 is 332, folate is 16.8. CTA of the chest obtained on 10/24/2018 reveals negative for acute intrathoracic process, negative for PE or TAA or dissection. Chest x-ray obtained on 10/24/2018 appears clear. PHYSICAL EXAMINATION: GENERAL: On examination, the patient is a well-developed, well-nourished 73-year-old male who is awake, alert, and oriented to person, place, time, and situation. He is verbal, conversational, does not appear to be in any acute distress. VITAL SIGNS: Temperature is 97.4, pulse 102, respirations 22, blood pressure is 186/81, oxygen saturation 92% on 3 L nasal cannula. SKIN: Warm and dry. No rash. Not diaphoretic. HEENT: Pupils equal, round, and reactive to light and accommodation. Conjunctiva is pink. No evidence of JVP. CARDIOVASCULAR SYSTEM: Heart is regular. There is no murmur or rub. CHEST: Clear, symmetrical, unlabored. ABDOMEN: Soft, nontender, nondistended. BACK: No CVA tenderness or sacral edema. EXTREMITIES: No clubbing, cyanosis, or edema. PSYCHIATRIC: Appropriate affect, pleasant mood. HISTORY OF PRESENT ILLNESS: The patient is a 73-year-old male with a past medical history of known coronary artery disease who is on dual antiplatelet therapy. The patient presented to the emergency department with a chief complaint of chest pain. The patient stated that his chest pain began gradually and has gotten worse over the past couple of months. The patient had some coffee at approximately 7 p.m., went into the garage looking for a tool, and suddenly started having retrosternal chest pain. The patient mainly described his pain, though, in the epigastrium and radiated to the neck area, including his throat, sharp, burning in nature. At times, the patient feels he was having a choking sensation. He did have associated shortness of breath, dizziness, but denied any nausea, vomiting, diaphoresis. The patient had recently seen his ice handler and did not receive any new recommendations. Chest pain is usually described as exertional and lasts about 2 hours in nature. While in the emergency department, the patient was started on a nitro drip given felt that he had some unstable angina. He did receive a total of 10 of IV morphine. The patient's troponin was found to be 0.016. His repeat troponin was 0.241. EKG was suggestive of a sinus tachycardia. I did note some ST depressions in lateral leads. The patient also states that he is having increasing lower extremity edema, but at this time, it appears overall improved. The patient did have an episode of bleeding. He says that he has been bleeding more so when he brushes his teeth, but denies coughing, vomiting any blood. No melenic stools. No melena, hematochezia. The patient denies having any history of GI bleed and had an EGD, colonoscopy 4 months ago that was positive only for a colon polyp. While in the emergency department, the patient was found to have a hemoglobin of 6.5, a hematocrit of 20, and given his blood pressure of 181/85 and indeterminate troponin. HOSPITAL COURSE: The patient was admitted initially to [facility]. The patient was typed and crossed and transfused 2 units of packed red blood cells with improvement of his hemoglobin, which trended up to 9.0 post transfusion. The patient had complete resolution of his chest pain, but remained maxed out on a nitro drip for blood pressure control. The patient was transferred down to the intensive care unit, and the patient's troponin bumped to 30.9. The patient's EKG did reveal some ST depression around midnight in the lateral leads; however, repeat EKG this morning, I cannot appreciate the same. The patient's chest pain and symptoms of dyspnea have appeared to have improved significantly. However, given the lack of gastroenterology support, interventional cardiology services, have recommended transfer to tertiary care center where the patient's ice handler is. The patient was also found to have uncontrolled diabetes. The patient is only on 2 oral agents at home, Actos, for which he really does not need to take with his heart failure, as well as Amaryl, and given his chronic kidney disease, really does not need to be on this anymore either. Most likely, the patient is going to have to be transitioned over to insulin. He has been on sliding scale coverage here since admission with significant improvement of his glucose. He is now down to 251 after routine insulin administration. The patient does have chronic kidney disease that appears his baseline. Creatinine is in the 1.5 range. It is to be noted that the patient did receive a CTA while he was here and is currently getting some fluids to help preserve renal function. TRANSFER PLANNING: The patient will be received at the services at [facility], and as always, the hospitalist at [facility] would like to thank [facility] for graciously participating in the care of this patient. Time spent on this transfer including assessment, plan, physical examination, patient education, review of records, specialty collaboration, and resource alignment is 70 minutes. DICTATING PHYSICIAN: JAMIE MORGAN NP [id number] PHY#: [id number] ID: [id number] JOB#: [id number] ACCT: [id number] cc:JAMIE MORGAN NP > MTDD
[2018-10-24] MEDS ORDERED: MAGNESIUM SULFATE/D5W 1 GM/100 ML RTUPB IV ONE (11:01)
[2018-10-24] MEDS ORDERED: MAGNESIUM SULFATE 1 GM/D5W 100 ML IV SCH (11:45)
[2018-10-24 11:56] LABS: CREATINE KINASE MB 31.8 ng/mL (<4.55)
[2018-10-24 12:00] LABS: TROPONIN I 20.2 ng/mL
[2018-10-24 12:12] VITALS: BP 144/57
--- NOTE | 2018-10-24 12:50 | XCELERA REPORT ---
[address] [address] Transthoracic Echocardiogram Report Name: DONNA BERG Age: 73 yrs Gender: Male : 1945 Patient Status: In[facility] Study Date: 10/24/2018 10:33 AM Procedure: A two-dimensional transthoracic echocardiogram with color flow and Doppler was performed. Study Quality: Good. Reason For Study: NSTEMI History: NSTEMI. Ordering Physician: JAMIE MORGAN Performed By: Abbey Lopez Interpretation Summary The left ventricle is normal in size. There is normal left ventricular wall thickness. LV EF is > than 65% Left ventricular systolic function is normal. The left ventricular wall motion is normal. There is no thrombus. There is no ventricular septal defect visualized. Doppler measurements suggest pseudonormalized left ventricular relaxation, which is associated with grade II/IV or mild to moderate diastolic dysfunction The right ventricle is normal in size and function. The right atrium is normal. The left atrial size is normal. The interatrial septum is intact with no evidence for an atrial septal defect. There is no evidence of mitral valve prolapse. There is no vegetation seen on the mitral valve. There is no mitral valve stenosis. There is a trace amount of mitral regurgitation The aortic valve is trileaflet. The aortic valve opens well. There is no aortic valvular vegetation. Visually no .Mildly elevated AV jet due to increased flow across the Aortic Valve. There is no LVOT obstruction. No aortic regurgitation is present. There is no tricuspid stenosis. No tricuspid regurgitation. Unable to calculate RVSP due lack of TR jet There is no pulmonic valvular stenosis. There is no pulmonic valvular regurgitation. The aortic root is normal size. There is no pericardial effusion. MMode/2D Measurements & Calculations RVDd: 3.6 cm LVIDd: 4.9 cm FS: 38.1 % Ao root diam: 3.3 cm IVSd: 0.96 cm LVIDs: 3.1 cm EDV(Teich): 114.5 ml Ao root area: 8.7 cm2 LVPWd: 1.0 cm ESV(Teich): 36.5 ml EF(Teich): 68.1 % Doppler Measurements & Calculations MV E max lalo: MV dec slope: Ao V2 max: LV V1 max P.5 cm/sec 216.5 cm/sec 7.6 mmHg MV A max lalo: 637.9 cm/sec2 Ao max PG: LV V1 max: 120.4 cm/sec MV dec time: 0.13 sec18.7 mmHg 137.6 cm/sec MV E/A: 0.68 PA V2 max: 162.3 cm/sec PA max P.5 mmHg Left Ventricle The left ventricle is normal in size. There is normal left ventricular wall thickness. LV EF is > than 65%. Left ventricular systolic function is normal. Doppler measurements suggest pseudonormalized left ventricular relaxation, which is associated with grade II/IV or mild to moderate diastolic dysfunction. The left ventricular wall motion is normal. There is no thrombus. There is no ventricular septal defect visualized. Right Ventricle The right ventricle is normal in size and function. Atria The right atrium is normal. The left atrial size is normal. The interatrial septum is intact with no evidence for an atrial septal defect. Mitral Valve There is no evidence of mitral valve prolapse. There is no vegetation seen on the mitral valve. There is no mitral valve stenosis. There is a trace amount of mitral regurgitation. Aortic Valve The aortic valve is trileaflet. The aortic valve opens well. There is no aortic valvular vegetation. Visually no .Mildly elevated AV jet due to increased flow across the Aortic Valve. There is no LVOT obstruction. No aortic regurgitation is present. Tricuspid Valve There is no tricuspid stenosis. No tricuspid regurgitation. Unable to calculate RVSP due lack of TR jet. Pulmonic Valve There is no pulmonic valvular stenosis. There is no pulmonic valvular regurgitation. Great Vessels The aortic root is normal size. Effusions There is no pericardial effusion. : JAMIE MORGAN > [place]
--- NOTE | 2018-10-24 13:06 | EKG REPORT ---
SEVERITY:- ABNORMAL ECG - SINUS RHYTHM PROBABLE LVH WITH SECONDARY REPOL ABNRM : Confirmed by: Diego Queen MD 24-Oct-2018 13:05:50
--- NOTE | 2018-10-24 13:37 | PDOC CONSULTATION ---
Consultation-Blank Consultation: CARDIOLOGY CONSULTATION by Dr. Angeles Marin on 10/24/2018. Patient seen at 11:15 AM. 75 minutes spent on the patient with more than 50% of the time spent in direct patient care. REASON FOR CONSULTATION: Patient with history of coronary artery disease, 2 stents in the right coronary artery in 2013, admitted with chest pain, severe anemia, and elevated troponin I consistent with non-ST elevation NJ. HISTORY OF PRESENT ILLNESS: Patient is a 73-year-old male, with known history of coronary artery disease, history of 2 stents in the right coronary artery in 2013, hypertension, diabetes mellitus, and chronic kidney disease, states that since the past 3-4 months has been having progressively increasing chest burning on exertion. He also complains of fatigue and weakness. And also some swelling in the right which is now increased. 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 This continued until he came to the emergency room. He also noted associated diaphoresis, shortness of breath, and generalized weakness. He also states that he had generalized fatigue, which started over the past few months. He has also been having decreased effort tolerance since the few months mentioned earlier. Although he had dizziness, with the chest pain yesterday he did not have a syncopal episode. He was not aware of any palpitations. In the emergency room is found to have a hemoglobin of 6.5 and initial troponin I was elevated. He also had a CAT scan of his chest with contrast which showed no evidence of pulmonary emboli. His subsequent blood pressure was high and his troponin was raising further, hence the patient was transferred to the ICU to be started on a Cardene drip. This did bring his blood pressure down. He has been discussed by the hospitalist with [facility], and arrangements have been made for the patient to be transferred there. PAST MEDICAL HISTORY: History of hypertension. History of coronary artery disease. He states he had no myocardial infarction, but had a stress test which was abnormal and subsequently had 2 stents placed in the right coronary artery. This was in 2013. He does not remember when he last had a stress test. He states he has been fairly active without any symptoms until about 3-4 months ago, when he started having exertional chest burning as mentioned earlier , and also generalized fatigue, and decreased effort tolerance. He also had shortness of breath on walking short distances. He also has had mild edema over the few months which is now increased. He has a history of diabetes mellitus, and also chronic kidney disease. He has no history of TIA or CVA. There is no history of thyroid disease. There is no history of asthma or COPD. There is no history of sleep apnea. PAST SURGICAL HISTORY: He has a history of right shoulder surgery. Carpal tunnel surgery in the left wrist. He is also had eye surgery in the form of retinal laser surgery, and vitreotectomy. SOCIAL HISTORY: He stopped smoking long time ago. There is no history of EtOH abuse. FAMILY HISTORY: There is no history of coronary artery disease in the family, but there is a history of hypertension and diabetes mellitus. Allergies: No known allergies. DISPOSITION: The patient is a full code. His is his surrogate healthcare decision maker. REVIEW OF SYSTEMS: Constitutional: Denies any fever chills or rigors. Complains of generalized fatigue and weakness especially over the last few months which is increasing yesterday. Head denies headaches or head injury. Eyes no history of MAA diplopia no history of amaurosis fugax. EARS: No history of hearing loss. No history of tinnitus. No history of recurrent ear infections. NOSE: No history of nosebleeds. No history of hayfever. MOUTH: No history of altered taste sensation. No ulcers in the mouth. No bleeding from the gums. THROAT: No odynophagia or dysphagia. No recurrent sore throats. SKIN: No history of pruritus. No history of eczema. No history of yellowish discoloration of the skin. NECK: No history neck pain. No goiter. No swelling in the neck. LUNGS: No history of wheezing. No history of cough or sputum production. No history of COPD or asthma no history of sleep apnea. No history of pulmonary embolism. No pleuritic chest pain no hemoptysis. CARDIAC: History of coronary artery disease, no history of NJ. Patient admitted with exertional angina, most likely there is restenosis of the stent, but the patient is also very anemic. The patient had non-ST elevation this admission. There is no prior history of congestive heart failure. He has had 2 stents in the right coronary artery in 2013. Although he denies history of NJ. There is no history of palpitations or syncope. No history of cardiac arrhythmia. Since the past few months he has been having chronic leg edema which is recently increased. He has no history of syncope ENDOCRINE: History of non-insulin dependent diabetes mellitus type 2. No history of polydipsia polyuria. His blood sugar is uncontrolled. He has no history of thyroid disease. No history of heat or cold intolerance. GI: The patient states last pill of days he has woken up with some blood in the mouth, but is not very descriptive descriptive about this. He denies any nausea or vomiting. He has a history of GERD. He has not taking any nonsteroidal anti-inflammatory agents. He has no prior history of GI bleed. His stool occult blood is negative but workup shows that he has iron deficiency anemia. He states his stools are dark brown but not melanotic. He has no hematochezia or hematemesis. There is no history of fatty food intolerance. He states the burning starts in the epigastrium goes up into the throat, and this is with exertion. Certain foods also bring out the same sort of burning. No altered bowel movements. MUSCULOSKELETAL: Denies arthritis or collagen vascular disease. RENAL: He states that his kidneys are working only 50%. He has chronic kidney disease. Denies symptoms a UTI. No history of symptoms of enlarged prostate. No history of hematuria pyuria or dysuria. Metabolic history of hyperlipidemia present no history of obesity. No history of gout. 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 No history of headaches migraines or seizures. No history of gait imbalance. PSYCHIATRIC: No history of anxiety or depression. No history of suicidal ideation. No history of homicidal ideation. VASCULAR: No history of calf or buttock claudication. No history of DVT. HEMATOLOGICAL. No history of bleeding diathesis or clotting disorders. The patient admitted with severe iron deficiency anemia. PHYSICAL EXAMINATION: The patient is well-built and well-nourished. He is at present in no acute distress. He denies any chest pain or discomfort or shortness of breath, and at present his blood pressure is much better controlled now. 10/24/18 10/24/18 10/24/18 05:30 06:00 06:30 Temperature Temperature Source Pulse Rate Heart Rate ( 96 Monitors) Respiratory Rate Blood Pressure 206/92 H 186/81 H [Upper Arm] Blood Pressure 130 116 Mean [Upper Arm ] Blood Pressure Supine Position [Upper Arm] O2 Sat by Pulse Oximetry Oxygen Delivery Method ( includes room air) Oxygen Flow Rate O2 Sat by Pulse 98 Oximetry by Telemetry 10/24/18 10/24/18 07:00 12:00 Temperature 97.7 F Temperature Oral Source Pulse Rate 92 Heart Rate ( Monitors) Respiratory 23 H Rate Blood Pressure 144/57 H [Upper Arm] Blood Pressure 86 Mean [Upper Arm ] Blood Pressure Position [Upper Arm] O2 Sat by Pulse 94 Oximetry Oxygen Delivery Nasal Cannula Method ( includes room air) Oxygen Flow 2 Rate O2 Sat by Pulse 94 Oximetry by Telemetry HEAD: Head is atraumatic, normocephalic. EYES: Pupils are equal round regular, reactive to light and accommodation. Extraocular movements are normal. There is conjunctival pallor present. There is no scleral icterus. EARS: Clear tympanic membranes are intact. External auditory canals are clear. NOSE: There is no deviated nasal septum. There is no inflammation of the nasal mucous membrane. MOUTH: Mucous membranes of mouth are moist, tongue is moist, and no ulcers in the mouth. THROAT: There is no redness of the oropharynx. There is no exudates. SKIN: There is no petechia or ecchymosis. There is no skin rashes or skin lesions. NECK: Neck is supple. There is no JVD. Carotids are equal there is no bruit. There is no lymphadenopathy. There is no goiter. Trachea central. LUNGS: There is no accessory muscles of respiration in use. Lungs are clear without any rhonchi rales or wheezing. There is no chest wall tenderness. HEART: S1-S2 is heard. There is no S3 gallop there is no S3 gallop. There is systolic murmur in the left sternal border and the apex without radiation. There is no rub. ABDOMEN: Soft. Nontender. There is no hepatosplenic megaly. Bowel sounds are well heard. There is no rebound guarding or rigidity. EXTREMITIES: Femorals are well felt. There is no femoral bruits. Leg pulses well felt. There is trace to mild pedal edema bilaterally. There is no DVT or cellulitis. There is no calf tenderness. There is no cyanosis or clubbing. Capillary refill is normal. 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 PSYCHIATRIC the patient judgment and insight are intact his affect is normal. 10/23/18 10/23/18 10/23/18 19:55 19:55 19:55 WBC 8.0 RBC 2.69 L Hgb 6.5 L Hct 20.4 L MCV 76 L MCH 24.2 L MCHC 31.9 L RDW 20.8 H Plt Count 272 Seg Neutrophils % Lymphocytes % Monocytes % Eosinophils % Basophils % Absolute Neutrophils Absolute Lymphocytes Absolute Monocytes Absolute Eosinophils Absolute Basophils Retic Count (auto) Absolute Retic Carbonic Acid HCO3/H2CO3 Ratio ABG pH ABG pCO2 ABG pO2 ABG HCO3 ABG Total CO2 ABG O2 Saturation ABG Base Excess FiO2 Sodium 139.0 Potassium 4.8 Chloride 103 Carbon Dioxide 19 L Anion Gap 17 BUN 42 H Creatinine 1.69 H Est GFR (Non-Af Amer) 40 L Glucose 510 H* POC Glucose Calcium Magnesium Iron TIBC % Saturation Ferritin Total Bilirubin 0.2 Direct Bilirubin 0.2 Neonat Total Bilirubin Not Reportable Neonat Direct Bilirubin Not Reportable Neonat Indirect Bili Not Reportable AST 18 ALT 14 L Alkaline Phosphatase 101 Creatine Kinase CK-MB (CK-2) 3.35 Troponin I 0.016 NT-Pro-B Natriuret Pep 464 Total Protein 7.0 Albumin 3.9 Lipase Vitamin B12 Folate Stool Occult Blood 10/23/18 10/23/18 10/23/18 19:55 19:55 19:55 WBC RBC Hgb Hct MCV MCH MCHC RDW Plt Count Seg Neutrophils % Lymphocytes % Monocytes % Eosinophils % Basophils % Absolute Neutrophils Absolute Lymphocytes Absolute Monocytes Absolute Eosinophils Absolute Basophils Retic Count (auto) 2.49 Absolute Retic 0.067 Carbonic Acid HCO3/H2CO3 Ratio ABG pH ABG pCO2 ABG pO2 ABG HCO3 ABG Total CO2 ABG O2 Saturation ABG Base Excess FiO2 Sodium Potassium Chloride Carbon Dioxide Anion Gap BUN Creatinine Est GFR (Non-Af Amer) Glucose POC Glucose Calcium Magnesium Iron 28.2 L TIBC 405 % Saturation 7 Ferritin 7.10 L Total Bilirubin Direct Bilirubin Neonat Total Bilirubin Neonat Direct Bilirubin Neonat Indirect Bili AST ALT Alkaline Phosphatase Creatine Kinase CK-MB (CK-2) Troponin I NT-Pro-B Natriuret Pep Total Protein Albumin Lipase 646.4 H Vitamin B12 332.0 Folate 16.80 Stool Occult Blood 10/23/18 10/23/1818 20:36 23:30 23:30 WBC RBC Hgb Hct MCV MCH MCHC RDW Plt Count Seg Neutrophils % Lymphocytes % Monocytes % Eosinophils % Basophils % Absolute Neutrophils Absolute Lymphocytes Absolute Monocytes Absolute Eosinophils Absolute Basophils Retic Count (auto) Absolute Retic Carbonic Acid HCO3/H2CO3 Ratio ABG pH ABG pCO2 ABG pO2 ABG HCO3 ABG Total CO2 ABG O2 Saturation ABG Base Excess FiO2 Sodium Potassium Chloride Carbon Dioxide Anion Gap BUN Creatinine Est GFR (Non-Af Amer) Glucose POC Glucose Calcium Magnesium Iron TIBC % Saturation Ferritin Total Bilirubin Direct Bilirubin Neonat Total Bilirubin Neonat Direct Bilirubin Neonat Indirect Bili AST ALT Alkaline Phosphatase Creatine Kinase CK-MB (CK-2) Troponin I 0.241 NT-Pro-B Natriuret Pep 390 Total Protein Albumin Lipase Vitamin B12 Folate Stool Occult Blood NEGATIVE 10/23/18 10/24/18 10/24/18 23:37 05:36 05:36 WBC RBC Hgb Hct MCV MCH MCHC RDW Plt Count Seg Neutrophils % Lymphocytes % Monocytes % Eosinophils % Basophils % Absolute Neutrophils Absolute Lymphocytes Absolute Monocytes Absolute Eosinophils Absolute Basophils Retic Count (auto) Absolute Retic Carbonic Acid HCO3/H2CO3 Ratio ABG pH ABG pCO2 ABG pO2 ABG HCO3 ABG Total CO2 ABG O2 Saturation ABG Base Excess FiO2 Sodium Potassium Chloride Carbon Dioxide Anion Gap BUN Creatinine Est GFR (Non-Af Amer) Glucose POC Glucose 374 H Calcium Magnesium Iron TIBC % Saturation Ferritin Total Bilirubin Direct Bilirubin Neonat Total Bilirubin Neonat Direct Bilirubin Neonat Indirect Bili AST ALT Alkaline Phosphatase Creatine Kinase 716 H CK-MB (CK-2) 30.90 H Troponin I 11.300 NT-Pro-B Natriuret Pep Total Protein Albumin Lipase Vitamin B12 Folate Stool Occult Blood 10/24/18 10/24/18 10/24/18 05:36 05:36 05:36 WBC 10.0 RBC 3.60 L Hgb 9.0 L D Hct 26.9 L MCV 75 L MCH 25.1 L MCHC 33.6 RDW 20.3 H Plt Count 261 Seg Neutrophils % 79.7 H Lymphocytes % 11.7 L Monocytes % 7.2 Eosinophils % 0.8 Basophils % 0.6 Absolute Neutrophils 7.9 Absolute Lymphocytes 1.2 Absolute Monocytes 0.7 Absolute Eosinophils 0.1 Absolute Basophils 0.1 Retic Count (auto) Absolute Retic Carbonic Acid HCO3/H2CO3 Ratio ABG pH ABG pCO2 ABG pO2 ABG HCO3 ABG Total CO2 ABG O2 Saturation ABG Base Excess FiO2 Sodium 143.7 Potassium 5.0 Chloride 108 H Carbon Dioxide 22 Anion Gap 14 BUN 36 H Creatinine 1.47 H Est GFR (Non-Af Amer) 47 L Glucose 303 H POC Glucose Calcium 9.5 Magnesium 2.1 Iron TIBC % Saturation Ferritin Total Bilirubin Direct Bilirubin Neonat Total Bilirubin Neonat Direct Bilirubin Neonat Indirect Bili AST ALT Alkaline Phosphatase Creatine Kinase CK-MB (CK-2) Troponin I NT-Pro-B Natriuret Pep Total Protein Albumin Lipase 317.0 H Vitamin B12 Folate Stool Occult Blood 10/24/18 10/24/18 10/24/18 06:15 11:17 11:17 WBC RBC Hgb Hct MCV MCH MCHC RDW Plt Count Seg Neutrophils % Lymphocytes % Monocytes % Eosinophils % Basophils % Absolute Neutrophils Absolute Lymphocytes Absolute Monocytes Absolute Eosinophils Absolute Basophils Retic Count (auto) Absolute Retic Carbonic Acid 1.02 L HCO3/H2CO3 Ratio 22:1 ABG pH 7.45 ABG pCO2 34.0 L ABG pO2 66.4 L ABG HCO3 23.3 ABG Total CO2 24.3 ABG O2 Saturation 94.2 ABG Base Excess -0.5 FiO2 2LNC Sodium Potassium Chloride Carbon Dioxide Anion Gap BUN Creatinine Est GFR (Non-Af Amer) Glucose POC Glucose Calcium Magnesium Iron TIBC % Saturation Ferritin Total Bilirubin Direct Bilirubin Neonat Total Bilirubin Neonat Direct Bilirubin Neonat Indirect Bili AST ALT Alkaline Phosphatase Creatine Kinase 781 H CK-MB (CK-2) 31.80 H Troponin I 20.200 NT-Pro-B Natriuret Pep Total Protein Albumin Lipase Vitamin B12 Folate Stool Occult Blood 10/23/18 20:02 Morphine Sulfate [Morphine 10 mg/ml Inj] 5 mg IV NOW ONE 10/23/18 21:02 Lorazepam [Ativan Inj 2 mg/1 ml Vial] 1 mg IV NOW ONE 10/23/18 21:03 Insulin Regular, Human [Humulin R (Pyxis) Insulin 100 Unit/ml 3Ml] 10 unit SUBCUT NOW ONE 10/23/18 21:54 Lorazepam [Ativan Inj 2 mg/1 ml Vial] 2 mg IV NOW ONE Morphine Sulfate [Morphine 10 mg/ml Inj] 5 mg IV NOW ONE 10/23/18 22:07 Normal Saline 1000 ml [NaCl 0.9% 1000 ml IV Soln] 1,000 ml IV .CONTINUOUS 10/24/18 01:01 Metoprolol Tartrate [Lopressor Inj/Pf 5 mg/5 ml Sdv] 5 mg IV NOW ONE 10/24/18 01:39 Acetaminophen [Tylenol 325 mg Tablet] 650 mg PO Q4HP PRN Mag Hydrox/Al Hydrox/Simeth [Maalox Plus Susp 30 Udcup] 30 ml PO Q6HP PRN Promethazine HCl [Phenergan 25 mg Tablet] 25 mg PO Q4HP PRN 10/24/18 01:46 Furosemide [Lasix Inj/Pf 40 mg/4 ml Sdv] 40 mg IV NOW ONE 10/24/18 01:48 Nitroglycerin [Nitrostat 0.4 mg (1/150 Gr) Tabs 25/Bottle] 1 tab SL Q5MP PRN Nitroglycerin/D5w [Ntg RTU 50 mg/D5w 250 ml IV Premix Bottle] 50 mg in 250 ml IV CONTINUOUS 10/24/18 01:49 Dextrose 50%-Water [Dextrose Inj 50% Syringe (25 gm/50 ml)] 12.5 gm IV PRN PRN Dextrose 50%-Water [Dextrose Inj 50% Syringe (25 gm/50 ml)] 25 gm IV PRN PRN Dextrose [Glutose 40% Gel 15 gm Tube] 15 gm PO PRN PRN Dextrose [Glutose 40% Gel 15 gm Tube] 30 gm PO PRN PRN Glucagon,Human Recombinant [Glucagen Inj 1 mg Vial] 1 mg IM PRN PRN 10/24/18 01:54 Benzonatate [Tessalon Perles 100 mg Capsule] 100 mg PO NOW ONE 10/24/18 01:56 Metoprolol Tartrate [Lopressor Inj/Pf 5 mg/5 ml Sdv] 5 mg IV Q6HP PRN 10/24/18 01:57 Metoprolol Succinate [Toprol Xl 50 mg Tab.sr] 50 mg PO NOW ONE 10/24/18 06:00 Heparin Sodium,Porcine [Heparin Inj 5,000 Units/ml 1 ml Syringe] 5,000 unit SUBCUT Q8 10/24/18 08:15 Nicardipine HCl RTU, Iso-Os [Cardene 20 mg/200 ml Premix Bag] 20 mg in 200 ml IV CONTINUOUS 10/24/18 08:42 Insulin Lispro [Humalog Insulin 100 Unit/1 ml 3 ml Vial] 0 - 12 unit SUBCUT Q4HP PRN 10/24/18 09:00 Promethazine HCl [Phenergan Inj 25 mg/1 ml Vial] 25 mg IV Q4HP PRN 10/24/18 10:00 Levothyroxine Sodium [Synthroid 0.075 mg Tablet] 0.075 mg PO Q6AM 10/24/18 11:01 Magnesium Sulfate/D5w [Magnesium Sulfate RTU-D5w 1 gm/100 ml Premix] 1 gm in 100 ml IV .STK-MED 10/24/18 11:45 Magnesium Sulfate/D5w [Magnesium Sulfate RTU-D5w 1 gm/100 ml Premix] 1 gm in 100 ml IV Q1H SERIAL EKG showed sinus tachycardia. LVH with strain pattern. Also there is some mild diffuse ST depression consistent with ischemia. CHEST X-ray: Shows no acute process. CTA of the chest shows no evidence of pulmonary emboli. ECHOCARDIOGRAM: Surprisingly shows normal wall motion, LV ejection fraction is greater than 65%. There is no wall motion abnormality. The LV chamber size is normal. There is no LVH. There is trace mitral regurgitation. Unable to calculate pulmonary hypertension, due to lack of TR jet. There is no aortic stenosis or aortic regurgitation. There is no pericardial effusion. IMPRESSION/RECOMMENDATION: 1. Non-ST elevation NJ in a patient with history of coronary artery disease. Noted that the patient has troponin I is elevated. The patient also has severe anemia which aggravates the patient's condition. With the patient's anemia, and at present with the patient having no chest pain will recommend continue beta-blockers, and continue IV nitroglycerin. At present would not use aspirin or anticoagulation, until the etiology of his iron deficient anemia is known. Also would continue Cardene drip to control the patient's blood pressure. 2. Severe anemia: Stool occult blood is negative. Patient denies any symptoms suggestive of GI bleed. Workup shows that the patient's has microcytic anemia and iron deficiency. Agree with transfusing the patient with blood until the hemoglobin is greater than 10. 3. Coronary artery disease: History of stents x2 in the right coronary artery in 2013. Patient with symptoms of exertional angina since the past 3-4 months. Most likely there is restenosis of the right coronary stent. This is been aggravated by the patient's acute anemia. 4. Hypertension: Initially blood pressure was very high, and subsequently with Cardene drip the patient's blood pressure has been controlled at present. 5. Diabetes mellitus type 2 [id number]: Continue antidiabetic treatment note that the patient blood sugars have been elevated. Would recommend tighter control of his blood sugars. 6. Chronic kidney disease: At present stage III with a GFR of 47 mL/min. 7. GERD: Continue proton pump inhibitors. 8. ELEVATED LIPASE:? Etiology most likely this is raised lipase level due to the patient's renal insufficiency. Medications reviewed. Medication adjusted. Discussed with hospitalist taking care of the patient. Discussed with the patient patient's , and they have been brought up-to-date with the patient's current clinical condition and blood work and EKG findings and echo findings. 75 minutes spent on this patient more than 50% of time spent in direct patient care. Medical decision making is of high complexity. Agree with transferring the patient to a tertiary care center facility, since GI consultation is not available here. Thank you end of dictation.
== END 2018-10-24 12:40 | disposition short-term general hospital (02) | DRG 281 ==
LOC: ER 19:52 → EH 10-24 01:53 → 3N 10-24 04:45 → ICU 10-24 08:30
PROVIDERS: ADMIT Internal Medicine; ATTEND Internal Medicine
DX: I21.4 Non-ST elevation (NSTEMI) myocardial infarction (principal); I16.1 Hypertensive emergency; D62 Acute posthemorrhagic anemia; I12.9 Hypertensive chronic kidney disease with stage 1 through stage 4 chronic kidney disease, or unspecified chronic kidney disease; N18.3 Chronic kidney disease, stage 3 (moderate); E11.22 Type 2 diabetes mellitus with diabetic chronic kidney disease; K27.9 Peptic ulcer, site unspecified, unspecified as acute or chronic, without hemorrhage or perforation; D50.9 Iron deficiency anemia, unspecified; D64.9 Anemia, unspecified; I25.10 Atherosclerotic heart disease of native coronary artery without angina pectoris; E78.5 Hyperlipidemia, unspecified; E03.9 Hypothyroidism, unspecified; Z79.82 Long term (current) use of aspirin; Z79.899 Other long term (current) drug therapy; Z79.02 Long term (current) use of antithrombotics/antiplatelets; Z95.5 Presence of coronary angioplasty implant and graft; Z87.891 Personal history of nicotine dependence; Z88.7 Allergy status to serum and vaccine
CPT/HCPCS: 36415; 36430; 71045; 71275; 80048; 80053; 82272; 82550; 82553; 82607; 82728; 82746; 82803; 82962; 83540; 83550; 83690; 83735; 83880; 84484; 85025; 85045; 85610; 85730; 86850; 86900; 86901; 86920; 93005; 93010; 93306; 96365; 96366; 96375; 96376; 99291; J1815; J1940; J2060; J2270; J3475; J3490; J7030; P9016

== ENCOUNTER 2018-12-02 08:40 | Emergency (ER) | payer MEDICARE ==
[2018-12-02] MEDS ORDERED: HYDROCODONE/ACETAMINOPHEN 5-325 MG TABLET PO ONE (09:21)
--- NOTE | 2018-12-02 09:24 | ER Document Report ---
HPI - HPI Patient complains to provider of: Left hand pain and swelling Time Seen by Provider: 12/02/18 08:49 Onset/Duration: Worse Quality of pain: Achy Pain Level: 5 Context: Patient presents complaining of left hand pain that started initially to just the left third and fourth finger 2 weeks ago. Patient states that gradually the pain spread to all the fingers of the hand and into the left wrist area. Patient reports that swelling to the hand and wrist started yesterday. Patient denies any trauma or fever. Patient does state that he was discharged from the hospital 3 weeks ago and reports having multiple needle sticks and IVs to the arm but reports that he had a heart cath performed on the right upper extremity. Associated Symptoms: Other - Left hand pain and swelling. denies: Fever Exacerbated by: Movement Relieved by: Denies Similar symptoms previously: No Recently seen / treated by doctor: Yes - ROS ROS below otherwise negative: Yes Systems Reviewed and Negative: Yes All other systems reviewed and negative - CONSTITUTIONAL Constitutional: DENIES: Fever, Chills - NEURO Neurology: DENIES: Weakness - CARDIOVASCULAR Cardiovascular: DENIES: Chest pain - GASTROINTESTINAL Gastrointestinal: DENIES: Nausea - REPRODUCTIVE Reproductive: DENIES: : - MUSCULOSKELETAL Musculoskeletal: REPORTS: Extremity pain, Swelling - DERM Skin Color: Normal Skin Problems: None Past Medical History - General Information source: Patient - Social History Smoking Status: Never Smoker Frequency of alcohol use: None Drug Abuse: None Lives with: Spouse/Significant other Family History: Reviewed & Not Pertinent Patient has suicidal ideation: No Patient has homicidal ideation: No - Past Medical History Cardiac Medical History: Reports: Hx Coronary Artery Disease, Hx Heart Attack, Hx Hypercholesterolemia, Hx Hypertension Pulmonary Medical History: Denies: Hx Asthma Neurological Medical History: Denies: Hx Cerebrovascular Accident, Hx Seizures Endocrine Medical History: Reports: Hx Diabetes Mellitus Type 2, Hx Hypothyroid ism Renal/ Medical History: Reports: Hx Renal Insufficiency. Denies: Hx Peritoneal Dialysis. Comment Only: Hx End Stage Renal Disease - 50% function of kidneys GI Medical History: Denies: Hx Hepatitis, Hx Hiatal Hernia, Hx Ulcer Psychiatric Medical History: Reports: Hx Depression Infectious Medical History: Denies: Hx Hepatitis Past Surgical History: Reports: Hx Cardiac Surgery - stents, Hx Coronary Stent - To a stent in 2012, Hx Orthopedic Surgery - Immunizations Hx Diphtheria, Pertussis, Tetanus Vaccination: Yes Vertical Provider Document - CONSTITUTIONAL Agree With Documented VS: Yes Exam Limitations: No Limitations General Appearance: WD/WN, No Apparent Distress - INFECTION CONTROL TRAVEL OUTSIDE OF THE [place] IN LAST 30 DAYS: No - HEENT HEENT: Atraumatic, Normocephalic - NECK Neck: Normal Inspection, Supple - RESPIRATORY Respiratory: Breath Sounds Normal, No Respiratory Distress - CARDIOVASCULAR Cardiovascular: Regular Rate, Regular Rhythm Pulses: Normal: Radial - MUSCULOSKELETAL/EXTREMETIES Musculoskeletal/Extremeties: MAEW, Tender - Generalized tenderness to left hand that is worse to the left wrist area., Edema - 1+ edema to left hand, 2+ edema to left wrist area. negative: Eccymosis Notes: Normal skin color and temperature to the left hand - NEURO Level of Consciousness: Awake, Alert, Appropriate Motor/Sensory: No Motor Deficit, No Sensory Deficit - DERM Integumentary: Warm, Dry, No Rash Course - Re-evaluation Re-evalutation: 12/02/18 09:21 Dr. Padron to bedside for examination. Recommends treating pain symptoms and adding on CBC, basic metabolic panel and a uric acid. 12/02/18 11:[address] Padron regarding diagnostic evaluation. Recommends having patient follow-up with primary doctor for recheck. Recommends going ahead and starting colchicine x2 doses given patient's history of diabetes is poorly controlled and history of renal failure as we do not want to put him on steroids for NSAIDs at this time. No concern for tenosynovitis, cellulitis or septic arthritis at this time. Will advise outpatient follow-up with primary doctor and orthopedics for further evaluation. 12/02/18 11:35 Patient states that he has been anemic for some time and that he has had colonoscopies to evaluate for possible source of blood loss. Patient states that he has had colonoscopy and endoscopy procedures have been without any significant findings and his primary doctor is continue to evaluate him for his anemia. - Vital Signs Vital signs: Temp Pulse Resp BP Pulse Ox 98.3 F 65 18 161/57 H 97 12/02/18 08:45 12/02/18 08:45 12/02/18 08:45 12/02/18 08:45 12/02/18 08:45 - Laboratory Result Diagrams: 12/02/18 09:25 12/02/18 09:25 Discharge - Discharge Clinical Impression: Hyperglycemia, Left hand pain, Left wrist pain, Swelling of left hand Anemia Qualifiers: Anemia type: unspecified type Qualified Code(s): D64.9 - Anemia, unspecified CKD (chronic kidney disease) Qualifiers: Chronic kidney disease stage: unspecified stage Qualified Code(s): N18.9 - Chronic kidney disease, unspecified Condition: Stable Disposition: HOME, SELF-CARE Instructions: Anemia ([facility]), Colchicine ([facility]), Hyperglycemia ([facility]), Ultram ([facility]) Additional Instructions: Return immediately for any new or worsening symptoms Followup with your primary care provider, call tomorrow to make a followup appointment Your blood sugar is poorly controlled with your current medications. Contact your primary doctor tomorrow to discuss your diabetes management. They may need to adjust her medications yet again. Your blood work also showed that you continue to be anemic. Follow-up with your primary doctor regarding this finding. Prescriptions: Colchicine [Colchicine 0.6 mg Tablet] 0.6 mg PO ASDIR #1 tablet Tramadol HCl [Ultram 50 mg Tablet] 50 mg PO ASDIR PRN #15 tablet PRN Reason: Referrals: ALEX MILLS MD [Primary Care Provider] - Follow up tomorrow [facility] [Provider Group] - Follow up as needed
--- NOTE | 2018-12-02 09:34 | ER Document Report ---
Doctor's Note Notes: I personally and independently obtained patient history and examined the patient in conjunction with the APC and agree with the assessment, treatment plan and disposition of the patient as recorded by the APC, and have reviewed the APC's note. HISTORY OF PRESENT ILLNESS: Patient is a 73-year-old male that presents to the emergency department for chief complaint of left hand pain. Patient has been complaining of left hand pain for approximately 2 weeks, getting progressively worse with some swelling that started yesterday. This is what triggered him to come to the emergency department. He is not sure if it is related, but he recently did have left heart catheterization, for an CA. ROS: Constitutional: Negative for fever. Cardiovascular: Negative for chest pain. Respiratory: Negative for shortness of breath. Gastrointestinal: Negative for vomiting or abdominal pain Musculoskeletal: Positive for hand pain, Negative for leg or back pain Skin: Negative for rash. Neurological: Negative for weakness or numbness. Other than noted above, the 12 point review of systems was reviewed with the patient and were negative, all pertinent findings are included in the HPI. PHYSICAL EXAMINATION: Vital signs reviewed, nursing noted reviewed. GENERAL: Elderly male, well-appearing, well-nourished and in no acute distress. HEAD: Atraumatic, normocephalic. EYES: Eyes appear normal, conjunctiva are normal. ENT: nares patent, oropharynx clear without exudates. Moist mucous membranes. NECK: Normal range of motion, supple without lymphadenopathy LUNGS: Breath sounds clear to auscultation bilaterally and equal. No wheezes rales or rhonchi. HEART: Regular rate and rhythm without murmurs ABDOMEN: Soft, nontender, normoactive bowel sounds. No rebound, guarding, or rigidity. No masses appreciated. EXTREMITIES: The left hand, is mildly edematous, and there is tenderness to palpation along the third and fourth digits, no erythema noted on any digit, no lymphangitis, pulses are intact, cap refill less than 3 seconds in all digits, the rest of the extremity exam is grossly unremarkable, good range of motion, no pitting or edema. NEUROLOGICAL: No focal neurological deficits. Moves all extremities spontaneously Motor and sensory grossly intact on exam. PSYCH: Normal mood, normal affect. SKIN: Warm, Dry, normal turgor, no rashes or lesions noted on exposed MEDICAL DECISION MAKING: Patient does have isolated swelling to the hand, and the second and third digits, he had a left heart catheterization with what sounds like was right radial access. However his swelling is on the left hand, the pains been going on for approximately 2 weeks, and swelling just started today, no evidence of in fection on my exam, will obtain CBC and BMP, to check renal function, and a uric acid, as this may be a representation of gout, as I would imagine the patient received Lasix and has been on it in the past which may have triggered a gout flare. Blood work reviewed, seem to be at baseline anemia, and renal function, his uric acid was normal, however I still have suspicion this may be gout flare, will treat with colchicine, for flare, and have him follow-up, if not improving, advised to return to the ED. Please review detail APC documentation. *Note is created using voice recognition software and may contain spelling, syntax or grammatical errors. Laboratory 12/02/18 12/02/18 09:25 09:25 WBC 7.5 RBC 3.41 L Hgb 9.2 L Hct 27.8 L MCV 82 MCH 27.0 MCHC 33.1 RDW 18.9 H Plt Count 161 Seg Neutrophils % 82.6 H Lymphocytes % 8.7 L Monocytes % 7.4 Eosinophils % 0.8 Basophils % 0.5 Absolute Neutrophils 6.2 Absolute Lymphocytes 0.7 Absolute Monocytes 0.6 Absolute Eosinophils 0.1 Absolute Basophils 0.0 Sodium 133.2 L Potassium 4.9 Chloride 99 Carbon Dioxide 26 Anion Gap 8 BUN 33 H Creatinine 1.64 H Est GFR ( Amer) 50 L Est GFR (Non-Af Amer) 41 L Glucose 362 H Uric Acid 6.0 Calcium 9.2
[2018-12-02 09:49] LABS: ABSOLUTE EOSINOPHILS # (AUTO) 0.1 10^3/uL (0.0-0.6); ABSOLUTE LYMPHOCYTES (AUTO) 0.7 10^3/uL (0.5-4.7); ABSOLUTE MONOCYTES (AUTO) 0.6 10^3/uL (0.1-1.4); ABSOLUTE NEUT (AUTO) 6.2 10^3/uL (1.7-8.2); BASOPHILS % (AUTO) 0.5 % (0-2); EOSINOPHILS % (AUTO) 0.8 % (0-6); HEMATOCRIT 27.8 % (37.9-51.0); HEMOGLOBIN 9.2 g/dL (13.5-17.0); LYMPHOCYTES % (AUTO) 8.7 % (13-45); MEAN CORPUSCULAR HGB CONC 33.1 g/dL (32.0-36.0); MEAN CORPUSCULAR VOLUME 82 fl (80-97); MONOCYTES % (AUTO) 7.4 % (3-13); PLATELET COUNT 161 10^3/uL (150-450); RED BLOOD COUNT 3.41 10^6/uL (4.35-5.55); RED CELL DISTRIBUTION WIDTH 18.9 % (11.5-14.0); SEGMENTED NEUTROPHILS % (AUTO) 82.6 % (42-78); TOTAL CELLS COUNTED % (AUTO) 100 %; WHITE BLOOD COUNT 7.5 10^3/uL (4.0-10.5)
[2018-12-02 10:09] LABS: ANION GAP 8 (5-19); BLOOD UREA NITROGEN 33 mg/dL (7-20); CALCIUM 9.2 mg/dL (8.4-10.2); CARBON DIOXIDE 26 mmol/L (22-30); CHLORIDE 99 mmol/L (98-107); GLUCOSE 362 mg/dL (75-110); POTASSIUM 4.9 mmol/L (3.6-5.0); SODIUM 133.2 mmol/L (137-145)
[2018-12-02] MEDS ORDERED: INSULIN REG, HUMAN 100 UNIT/ML 3 ML VIAL (PYX) SUBCUT ONE (11:20)
[2018-12-02] MEDS ORDERED: COLCHICINE 0.6 MG TABLET PO ONE (11:26)
[2018-12-02 12:07] VITALS: BP 127/51
== END 2018-12-02 12:05 | disposition home or self-care (01) ==
LOC: ER 08:40
DX: M79.642 Pain in left hand (principal); M79.89 Other specified soft tissue disorders; E11.22 Type 2 diabetes mellitus with diabetic chronic kidney disease; E11.65 Type 2 diabetes mellitus with hyperglycemia; I12.0 Hypertensive chronic kidney disease with stage 5 chronic kidney disease or end stage renal disease; N18.6 End stage renal disease; D63.1 Anemia in chronic kidney disease; I25.10 Atherosclerotic heart disease of native coronary artery without angina pectoris; Z95.5 Presence of coronary angioplasty implant and graft
CPT/HCPCS: 99283; 36415; 84550; 85025; 80048; A9270 ×3; J1815

== ENCOUNTER 2019-09-17 14:14 | Inpatient (IN) | payer MEDICARE, OTHER ==
--- NOTE | 2019-09-17 14:27 | ER Document Report ---
ED Medical Screen (RME) - General Stated Complaint: SLURRED SPEECH, DISORIENTED Time Seen by Provider: 09/17/19 14:18 Primary Care Provider: JESSICA ROSE FNP-C [Primary Care Provider] - Follow up as needed Notes: Patient is a 74-year-old male who presents emergency department with slurred speech. His symptoms started 3 days ago. Patient continues to have slurred speech. According to the , he was seen by Dr. Donaldson, the oncologist. According to the he has low hemoglobin. Patient denies any new weakness. Exam: Alert and oriented. Speech slurred. I have greeted and performed a rapid initial assessment of this patient. A comprehensive ED assessment and evaluation of the patient, analysis of test results and completion of medical decision making process will be conducted by an additional ED providers. TRAVEL OUTSIDE OF THE [place] IN LAST 30 DAYS: No - Related Data Allergies/Adverse Reactions: Influenza Virus Vaccines Adverse Reaction (Unknown, Verified 12/02/18 08:42) Fever Past Medical History - Past Medical History Cardiac Medical History: Reports: Hx Coronary Artery Disease, Hx Heart Attack, Hx Hypercholesterolemia, Hx Hypertension Pulmonary Medical History: Denies: Hx Asthma Neurological Medical History: Denies: Hx Cerebrovascular Accident, Hx Seizures Endocrine Medical History: Reports: Hx Diabetes Mellitus Type 2, Hx Hypothyroidism Renal/ Medical History: Reports: Hx Renal Insufficiency. Denies: Hx Peritoneal Dialysis. Comment Only: Hx End Stage Renal Disease - 50% function of kidneys GI Medical History: Denies: Hx Hepatitis, Hx Hiatal Hernia, Hx Ulcer Psychiatric Medical History: Reports: Hx Depression Infectious Medical History: Denies: Hx Hepatitis Past Surgical History: Reports: Hx Cardiac Surgery - stents, Hx Coronary Stent - To a stent in 2012, Hx Orthopedic Surgery - Immunizations Hx Diphtheria, Pertussis, Tetanus Vaccination: Yes Doctor's Discharge - Discharge Referrals: JESSICA ROSE FNP-C [Primary Care Provider] - Follow up as needed
[2019-09-17 15:07] LABS: ABSOLUTE EOSINOPHILS # (AUTO) 0.1 10^3/uL (0.0-0.6); ABSOLUTE LYMPHOCYTES (AUTO) 0.9 10^3/uL (0.5-4.7); ABSOLUTE MONOCYTES (AUTO) 0.8 10^3/uL (0.1-1.4); ABSOLUTE NEUT (AUTO) 4.7 10^3/uL (1.7-8.2); BASOPHILS % (AUTO) 0.6 % (0-2); EOSINOPHILS % (AUTO) 1.9 % (0-6); HEMATOCRIT 24.4 % (37.9-51.0); LYMPHOCYTES % (AUTO) 13.7 % (13-45); MEAN CORPUSCULAR HEMOGLOBIN 28.2 pg (27.0-33.4); MEAN CORPUSCULAR HGB CONC 32.7 g/dL (32.0-36.0); MEAN CORPUSCULAR VOLUME 86 fl (80-97); MONOCYTES % (AUTO) 11.8 % (3-13); PLATELET COUNT 238 10^3/uL (150-450); RED BLOOD COUNT 2.83 10^6/uL (4.35-5.55); RED CELL DISTRIBUTION WIDTH 16.1 % (11.5-14.0); TOTAL CELLS COUNTED % (AUTO) 100 %; WHITE BLOOD COUNT 6.5 10^3/uL (4.0-10.5)
--- NOTE | 2019-09-17 15:10 | RADIOLOGY REPORT (SQ) ---
EXAM DESCRIPTION: CT HEAD WITHOUT COMPLETED DATE/TIME: 09/17/2019 2:47 pm REASON FOR STUDY: slurred speech COMPARISON: None. TECHNIQUE: Axial images acquired through the brain without intravenous contrast. Images reviewed wi th bone, brain and subdural windows. Images stored on PACS. All CT scanners at this facility use dose modulation, iterative reconstruction, and/or weight based d osing when appropriate to reduce radiation dose to as low as reasonably achievable (ALARA). [facility]: Dose Right [facility]: CareDose [facility]: Dose Right [facility]: Teradose 4D [facility]: WyzeTalk LIMITATIONS: None. FINDINGS: There is an area of hypoattenuation in the left frontal lobe (in the distribution of the l eft MCA) that is associated with loss of the ch-white matter differentiation and effacement of the cerebral sulci. There is no associated mass effect or midline shift. There is no acute intracranial hemorrhage or extra-axial fluid collection. The hyperdensity within the cistern of the left lateral cerebral fossa (image 17 of series 2) is nonspecific but could represent a plaque within the superio r terminal branches of the MCA. There is no effacement of the basal subarachnoid cisterns. The caliber the ventricles is concordant with the degree of sulcation. The globes are aphakic. The paranasal sinuses are clear. The orbits are intact. There is no fractu re of the calvarium. IMPRESSION: 1. Area of hypoattenuation in the distribution of the left MCA that is suspected to repr esent an acute to subacute ischemic infarct. 2. Hyperdensity within the cistern of the left lateral cerebral fossa could represent an occluding a theromatous plaque within the superior terminal branches of the left MCA. EVIDENCE OF ACUTE STROKE: YES. LEFT MCA. COMMENT: This report was called to MICKEY FRANCO PUMP ROOM OPERATOR at15:04 on 09/17/2019. Quality ID # [id number]: Final reports with documentation of one or more dose reduction techniques (e.g., Au tomated exposure control, adjustment of the mA and/or kV according to patient size, use of iterative reconstruction technique) TECHNICAL DOCUMENTATION: JOB ID: [id number] [employer]- All Rights Reserved Reading location - IP/workstation name: [email or web address]
[2019-09-17 15:25] LABS: ALBUMIN 4.1 g/dL (3.5-5.0); ALKALINE PHOSPHATASE 67 U/L (38-126); ANION GAP 11 (5-19); ASPARTATE AMINO TRANSFERASE 23 U/L (17-59); BILIRUBIN,TOTAL 0.2 mg/dL (0.2-1.3); BLOOD UREA NITROGEN 25 mg/dL (7-20); CALCIUM 9.5 mg/dL (8.4-10.2); CARBON DIOXIDE 23 mmol/L (22-30); CHLORIDE 104 mmol/L (98-107); CREATINE KINASE 106 U/L (55-170); GLUCOSE 122 mg/dL (75-110); POTASSIUM 4.8 mmol/L (3.6-5.0); TOTAL PROTEIN 7.4 g/dL (6.3-8.2)
--- NOTE | 2019-09-17 15:42 | ER Document Report ---
ED General - General Chief Complaint: Slurred Speech Stated Complaint: SLURRED SPEECH, DISORIENTED Time Seen by Provider: 09/17/19 14:18 Primary Care Provider: JESSICA ROSE FNP-C [NO LOCAL MD] - Follow up as needed Information source: Patient, Relative TRAVEL OUTSIDE OF THE [place] IN LAST 30 DAYS: No - HPI Notes: Patient is sent over from transfusion services. He is sent over because he has has decreased alertness and his said his speech was slurred and slow. is in the room and she states that she noticed approximately 4 days ago, Sat urday, the patient's speech was slower as well as slurred. She states on Monday became better. She states yesterday and today it has been slow again. She states she has not appreciated any slurring over the last 2 days but he is slower to respond when she talks to him. She also states that he is walking slower than usual but does not appear uncoordinated and has not fallen. She states she has not appreciated any weakness of any extremity. She has not appreciated any confusion. No recent vomiting or diarrhea. No fever sweats or chills. Patient's symptoms have apparently been intermittent. Nothing is made them better or worse. They have been moderate to severe. There is no known ra diation of the symptoms. The symptoms have been characterized as slow to speak and walk with occasional slurring of speech. - Related Data Allergies/Adverse Reactions: Influenza Virus Vaccines Adverse Reaction (Unknown, Verified 12/02/18 08:42) Fever Past Medical History - Social History Smoking Status: Never Smoker Chew tobacco use (# tins/day): No Frequency of alcohol use: None Drug Abuse: None Family History: Reviewed & Not Pertinent Patient has suicidal ideation: No Patient has homicidal ideation: No - Past Medical History Cardiac Medical History: Reports: Hx Coronary Artery Disease, Hx Heart Attack, Hx Hypercholesterolemia, Hx Hypertension Pulmonary Medical History: Denies: Hx Asthma Neurological Medical History: Denies: Hx Cerebrovascular Accident, Hx Seizures Endocrine Medical History: Reports: Hx Diabetes Mellitus Type 2, Hx Hypothyroidism Renal/ Medical History: Reports: Hx Renal Insufficiency. Denies: Hx Peritoneal Dialysis. Comment Only: Hx End Stage Renal Disease - 50% function of kidneys GI Medical History: Denies: Hx Hepatitis, Hx Hiatal Hernia, Hx Ulcer Psychiatric Medical History: Reports: Hx Depression Infectious Medical History: Denies: Hx Hepatitis Past Surgical History: Reports: Hx Cardiac Surgery - stents, Hx Coronary Stent - To a stent in 2013, Hx Orthopedic Surgery - Immunizations Hx Diphtheria, Pertussis, Tetanus Vaccination: Yes Review of Systems - Review of Systems Constitutional: Malaise, Weakness. denies: Chills, Fever Cardiovascular: denies: Chest pain, Palpitations Respiratory: denies: Cough, Short of breath Gastrointestinal: denies: Abdominal pain, Vomiting -: Yes All other systems reviewed and negative Physical Exam - Vital signs Vitals: Pulse Resp BP Pulse Ox 55 L 16 163/57 H 100 09/17/19 14:28 09/17/19 14:28 09/17/19 14:28 09/17/19 14:28 Interpretation: Hypertensive - General General appearance: Appears well, Alert In distress: None - HEENT Head: Normocephalic, Atraumatic Eyes: Normal Pupils: PERRL - Respiratory Respiratory status: No respiratory distress Chest status: Nontender Breath sounds: Normal Chest palpation: Normal - Cardiovascular Rhythm: Regular Heart sounds: Normal auscultation Murmur: No - Abdominal Inspection: Normal Distension: No distension Bowel sounds: Normal Tenderness: Nontender Organomegaly: No organomegaly - Back Back: Normal, Nontender - Extremities General upper extremity: Normal inspection, Nontender, Normal color, Normal ROM, Normal temperature General lower extremity: Normal inspection, Nontender, Normal color, Normal ROM, Normal temperature. No: Jelena's sign - Neurological Cognition: Confused Orientation: Disoriented to time Radha Coma Scale Eye Opening: Spontaneous [place] Coma Scale Verbal: Confused Radha Coma Scale Motor: Obeys Commands Radha Coma Scale Total: 14 Speech: Dysarthria Cranial nerves: Normal Cerebellar coordination: No: Finger-nose rhombey Motor strength normal: LUE, RUE, LLE, RLE Additional motor exam normals: Equal sound system installer. No: Pronator drift Sensory: Normal Notes: Patient has an NIH stroke scale of 2 he gets 1 point for disorientation and 1 point for language. Otherwise I do not appreciate any focal deficits. - Psychological Associated symptoms: Normal affect, Normal mood - Skin Skin Temperature: Warm Skin Moisture: Dry Skin Color: Normal Course - Re-evaluation Re-evalutation: 09/17/19 17:46 Patient presents with slurred speech as well as slow speaking for approximately 4 days. The believes this started on Monday. Patient is also been noticed to walk slower per . CAT scan shows evidence of a large left MCA infarct. Patient has an NIH stroke scale of 2. I did discuss this with the neurologist at [facility]. Due to patient having 4 days of symptoms he is outside of the window for any type of intervention and is not a TPA candidate. I have also discussed this case with the hospitalist here who will admit the patient for further treatment. In addition I have discussed the case with the patient and family. - Vital Signs Vital signs: Temp Pulse Resp BP Pulse Ox 54 L 16 189/62 H 100 09/17/19 17:28 09/17/19 17:28 09/17/19 17:28 09/17/19 17:28 - Laboratory Result Diagrams: 09/17/19 14:53 09/17/19 14:53 Laboratory results interpreted by me: 09/17/19 09/17/19 14:53 14:53 RBC 2.83 L Hgb 8.0 L Hct 24.4 L RDW 16.1 H BUN 25 H Creatinine 1.73 H Est GFR ( Amer) 47 L Est GFR (MDRD) Non-Af 39 L Glucose 122 H - Diagnostic Test Radiology reviewed: Image reviewed, Reports reviewed Critical Care Note - Critical Care Note Total time excluding time spent on procedures (mins): 55 Comments: Approximate 55 minutes of critical care time were spent on this patient. This included multiple reassessments. And included multiple discussions with consul tants. It included review of imaging and laboratory studies. It also included discussions with family and patient. Discharge - Discharge Clinical Impression: CVA (cerebral vascular accident) Qualifiers: CVA mechanism: occlusion Precerebral and cerebral artery: middle cerebral art luc Laterality of affected vessel: left Qualified Code(s): I63.512 - Cerebral infarction due to unspecified occlusion or stenosis of left middle cerebral artery Condition: Serious Disposition: ADMITTED INPATIENT Admitting Provider: Haydee (Hospitalist) Unit Admitted: IMCU Referrals: JESSICA ROSE FNP-C [NO LOCAL MD] - Follow up as needed
--- NOTE | 2019-09-17 16:23 | RADIOLOGY REPORT (SQ) ---
EXAM DESCRIPTION: CTA NECK COMPLETED DATE/TIME: 09/17/2019 4:08 pm REASON FOR STUDY: CVA LEFT MCA/SLURRED SPEECH COMPARISON: CT of the head without contrast from 09/17/2019. TECHNIQUE: Axial dynamic scanning technique with dynamic contrast enhancement through the extra-bulldozer/loader/compactor/scraper nial carotid and vertebral arteries. Multiplanar reconstruction. 3-D MIPS and Volume-rendered imag es acquired at the workstation and saved to PACS. Images are reviewed in soft tissue, bone, lung w indows. All CT scanners at this facility use dose modulation, iterative reconstruction, and/or weight based d osing when appropriate to reduce radiation dose to as low as reasonably achievable (ALARA). [facility]: Dose Right [facility]: CareDose [facility]: Dose Right [facility]: Teradose 4D [facility]: Yoono CONTRAST TYPE AND DOSE: 100 mL of Omnipaque 350. RENAL FUNCTION: Creatinine 1.73 mg per dL. LIMITATIONS: None. FINDINGS: AORTIC ARCH: Standard 3 vessel arch. There is no high-grade stenosis of the origin of the brachiocephalic, left common carotid, and left subclavian arteries. RIGHT CAROTIDS: Calcified and noncalcified atheromatous plaques at the carotid bifurcation that resul t in less than 50% luminal stenosis. There is no dissection or aneurysm. RIGHT VERTEBRAL: Non-dominant compared to the contralateral side. The vessel is patent without evide nce of dissection. LEFT CAROTIDS: Calcified and noncalcified atheromatous plaques at the carotid bifurcation that result in less than 50% luminal stenosis. There is no dissection or aneurysm. LEFT VERTEBRAL: Patent without evidence of dissection. OTHER: No other fine. OTHER: 3-D reconstructions confirm findings. IMPRESSION: Calcified and noncalcified atheromatous plaques at the carotid bifurcations that result in less than 50% luminal stenosis. There is no dissection or aneurysm of the cervical vasculature. COMMENT: Quality ID #[id number]: Measurements of distal internal carotid diameter were used as the denomina tor for stenosis measurement. TECHNICAL DOCUMENTATION: JOB ID: [id number] Quality ID # 436: Final reports with documentation of one or more dose reduction techniques (e.g., Au tomated exposure control, adjustment of the mA and/or kV according to patient size, use of iterative reconstruction technique) 2010 [employer]- All Rights Reserved Reading location - IP/workstation name: [email or web address]
--- NOTE | 2019-09-17 17:35 | RADIOLOGY REPORT (SQ) ---
EXAM DESCRIPTION: CTA HEAD COMPLETED DATE/TIME: 09/17/2019 4:07 pm REASON FOR STUDY: cva left mca/slurred speech COMPARISON: None. TECHNIQUE: Post IV contrast scanning, thin section axial imaging through the brain to evaluate the a rterial structures. Source and MIP images are saved and reviewed on PACS. Advanced 3D imaging as volume-rendering, MIPs, SSD performed? yes All CT scanners at this facility use dose modulation, iterative reconstruction, and/or weight based d osing when appropriate to reduce radiation dose to as low as reasonably achievable (ALARA). [facility]: Dose Right [facility]: CareDose [facility]: Dose Right [facility]: Teradose 4D [facility]: [employer] CONTRAST TYPE AND DOSE: 70 mL Omnipaque 350- low osmolar. RENAL FUNCTION: BUN 25 creatinine 1.73 LIMITATIONS: None. FINDINGS: [place]: The anterior, middle, posterior cerebral arteries are all patent. No ev idence of aneurysm or focal stenosis. POSTERIOR CIRCULATION: The distal vertebral arteries are patent as is the basilar artery. No aneurysm . BRAIN: No gross enhancing lesions. There is a large area of decreased attenuation in the distributio n of the left middle cerebral artery. BONES: Intact as visualized. SINUSES: No fluid or mucosal thickening. OTHER: No other significant finding. IMPRESSION: Left MCA infarction. No significant stenosis or aneurysm is seen in the vessels of the [place] or in the posterior circulation. TECHNICAL DOCUMENTATION: JOB ID: [id number] Quality ID # [id number]: Final reports with documentation of one or more dose reduction techniques (e.g., Au tomated exposure control, adjustment of the mA and/or kV according to patient size, use of iterative reconstruction technique) 2010 [employer]- All Rights Reserved Reading location - IP/workstation name: [email or web address]
[2019-09-17] MEDS ORDERED: DEXTROSE 40% GEL 15 GM TUBE PO PRN ×2 (18:16)
[2019-09-17] MEDS ORDERED: GLUCAGON,HUMAN RECOMB 1 MG INJ IM PRN (18:16)
[2019-09-17] MEDS ORDERED: DEXTROSE 50%-WATER 25 GM/50 ML DISP.SYRIN IV PRN ×2 (18:16)
--- NOTE | 2019-09-17 18:29 | PDOC H&P ---
History of Present Illness Admission Date/PCP: 09/17/19 18:08 ALEX MILLS MD Patient complains of: Slurred speech History of Present Illness: DONNA BERG is a 74 year old male with a past medical history of hypertension, IDDM, CKD, CAD with prior stenting x2 in hypothyroidism who was brought in due to slurred speech. Patient says that he started having slurred speech and some expressive aphasia 4 days ago. They do not bother to bring him to the ER as they thought it would eventually improve. Patient saw his PCP earlier today and was sent to the ER. CT imaging showed a large left MCA infarct. CT of the head and neck was also pursued in the ER. Results were discussed by ER physician with [place] [facility] who recommended optimizing medical management here as patient is not a TPA candidate. Past Medical History Cardiac Medical History: Reports: Coronary Artery Disease, Myocardial Infarction, Hyperlipidema, Hypertension Pulmonary Medical History: Denies: Asthma Neurological Medical History: Denies: Seizures Endocrine Medical History: Reports: Diabetes Mellitus Type 2, Hypothyroidism Renal/ Medical History: Comment Only: End Stage Renal Disease - 50% function of kidneys GI Medical History: Denies: Hepatitis, Hiatal Hernia Psychiatric Medical History: Reports: Depression Hematology: Reports: Anemia - HX, TOOK IRON OTC, NOT PRESENTLY Denies: Sickle Cell Disease Past Surgical History Past Surgical History: Reports: Coronary Stent - To a stent in 2012, Orthopedic Surgery Social History Smoking Status: Never Smoker Electronic Cigarette use?: No Frequency of Alcohol Use: None Hx Recreational Drug Use: No Drugs: None Hx Prescription Drug Abuse: No Family History Family History: Reviewed & Not Pertinent Parental Family History Reviewed: Yes - No premature CAD Children Family History Reviewed: No Sibling(s) Family History Reviewed.: No Medication/Allergy Home Medications: Glimepiride [Amaryl 4 mg Tablet] 4 mg PO BID 01/01/15 Clonidine HCl 0.2 mg PO BID 07/07/16 Pioglitazone HCl [Actos 15 mg Tablet] 30 mg PO DAILY 10/24/18 Aspirin [Ecotrin 81 mg EC Tablet] 81 mg PO DAILY 09/17/19 Atorvastatin Calcium [Lipitor 80 mg Tablet] 80 mg PO QHS 09/17/19 Ezetimibe [Zetia 10 mg Tablet] 10 mg PO DAILY 09/17/19 Glipizide [Glipizide Xl] 10 mg PO DAILY 09/17/19 Hydralazine HCl 100 mg PO TID 09/17/19 Insulin Glargine,Hum.rec.anlog [Lantus Insulin 100 Unit/1 ml 10 ml] 15 unit SUBCUT DAILY 09/17/19 Isosorbide Mononitrate [Imdur 30 mg Tablet.er] 30 mg PO DAILY 09/17/19 Levothyroxine Sodium [Synthroid 50 Mcg Tablet] 50 mcg PO DAILY 09/17/19 Magnesium Oxide [Magnesium] 500 mg PO DAILY 09/17/19 Metoprolol Succinate [Toprol Xl 50 mg Tab.sr] 50 mg PO DAILY 09/17/19 Allergies/Adverse Reactions: Influenza Virus Vaccines Adverse Reaction (Unknown, Verified 12/02/18 08:42) Fever Review of Systems All systems: reviewed and no additional remarkable complaints except as stated - As mentioned in HPI Physical Exam Vital Signs: Temp Pulse Resp BP Pulse Ox 54 L 16 189/62 H 100 09/17/19 17:28 09/17/19 17:28 09/17/19 17:28 09/17/19 17:28 Intake & Output 09/16/19 09/17/19 09/18/19 06:59 06:59 06:59 Weight 185 lb 3.013 oz General appearance: PRESENT: no acute distress, well-developed, well-nourished Head exam: PRESENT: atraumatic, normocephalic Eye exam: PRESENT: conjunctiva pink, EOMI, PERRLA. ABSENT: scleral icterus Ear exam: PRESENT: normal external ear exam Mouth exam: PRESENT: moist, tongue midline Neck exam: ABSENT: carotid bruit, JVD, lymphadenopathy, thyromegaly Respiratory exam: PRESENT: clear to auscultation linda. ABSENT: rales, rhonchi, wheezes Cardiovascular exam: PRESENT: RRR. ABSENT: diastolic murmur, rubs, systolic murmur Pulses: PRESENT: normal dorsalis pedis pul GI/Abdominal exam: PRESENT: normal bowel sounds, soft. ABSENT: distended, guarding, mass, organolmegaly, rebound, tenderness Rectal exam: PRESENT: deferred Neurological exam: PRESENT: alert, awake, oriented to person, oriented to place, oriented to time, oriented to situation, CN II-XII grossly intact, motor sensory deficit - Patient has subtle right-sided weakness with 4/5 motor strength on the right arm and right leg Results Laboratory Results: 09/17/19 14:53 09/17/19 14:53 09/17/19 09/17/19 14:53 14:53 WBC 6.5 RBC 2.83 L Hgb 8.0 L Hct 24.4 L MCV 86 MCH 28.2 MCHC 32.7 RDW 16.1 H Plt Count 238 Seg Neutrophils % 72.0 Sodium 138.3 Potassium 4.8 Chloride 104 Carbon Dioxide 23 Anion Gap 11 BUN 25 H Creatinine 1.73 H Est GFR ( Amer) 47 L Glucose 122 H Calcium 9.5 Total Bilirubin 0.2 AST 23 Alkaline Phosphatase 67 Total Protein 7.4 Albumin 4.1 09/17/19 09/17/19 09/17/19 14:53 14:53 14:53 Creatine Kinase 106 CK-MB (CK-2) 2.07 Troponin I 0.013 Impressions: Head CT 09/17/19 14:23 IMPRESSION: 1. Area of hypoattenuation in the distribution of the left MCA that is suspected to represent an acute to subacute ischemic infarct. 2. Hyperdensity within the cistern of the left lateral cerebral fossa could represent an occluding atheromatous plaque within the superior terminal branches of the left MCA. EVIDENCE OF ACUTE STROKE: YES. LEFT MCA. Head CTA 09/17/19 15:45 IMPRESSION: Left MCA infarction. No significant stenosis or aneurysm is seen in the vessels of the [place] of [place] or in the posterior circulation. Neck CTA 09/17/19 15:47 IMPRESSION: Calcified and noncalcified atheromatous plaques at the carotid bifurcations that result in less than 50% luminal stenosis. There is no dissection or aneurysm of the cervical vasculature. Assessment and Plan - Diagnosis (1) Acute CVA (cerebrovascular accident) Is this a current diagnosis for this admission?: Yes Plan: Patient has subacute CVA on the left MCA distribution. He is presenting with slurred speech but per he sounds much better and has significantly improved compared to the past few days. Appears expressive aphasia has improved. He does have subtle right-sided weakness with 4/5 strength on the right arm and right leg. We will start patient on atorvastatin, aspirin and Plavix. Blood pressures are elevated. Will restart home medications and will adjust appropriately. Add hydralazine PRN for now. Will check A1c to assess glycemic control for his diabetes. (2) Hypertensive urgency Is this a current diagnosis for this admission?: Yes Plan: As per #1. (3) CKD (chronic kidney disease) Qualifiers: Chronic kidney disease stage: unspecified stage Qualified Code(s): N18.9 - Chronic kidney disease, unspecified Is this a current diagnosis for this admission?: Yes Plan: Will closely monitor renal functions as he did get CT with contrast studies in the ER for his stroke work-up. He denies prior history of CHF. Will also start patient on IV fluids. - Time Time Spent with patient: 25-34 minutes
--- NOTE | 2019-09-17 18:31 | ADVANCED CARE ---
- Diagnosis (1) Acute CVA (cerebrovascular accident) Diagnosis Current: Yes (2) Hypertensive urgency Diagnosis Current: Yes (3) CAD (coronary artery disease) Diagnosis Current: Yes (4) CKD (chronic kidney disease) Diagnosis Current: Yes Resuscitation Status: Full Code Discussion: Discussed with patient and on the bedside. He says that he wants to further discuss his CODE STATUS with his and will need some time. He says that for now he is okay with keeping him full code understanding that he would prefer to receive chest compressions, defibrillation or mechanical ventilation if denied arises. He says his , Anastacia Raygoza is his surrogate medical decision maker. He says he will update as if he decides to change his CODE STATUS to DNR.
[2019-09-17] MEDS: CLONIDINE HCL 0.2 MG TABLET PO SCH (22:04)
[2019-09-17] MEDS: ATORVASTATIN CALCIUM 40 MG TABLET PO SCH (22:04)
[2019-09-17] MEDS: HEPARIN SOD (PORCINE) 5,000 UNIT/ML 1 ML VIAL SUBCUT SCH (22:05)
[2019-09-17] MEDS: HYDRALAZINE HCL INJ/PF 20 MG/1 ML SDV IV PRN (22:05)
[2019-09-17] MEDS: INSULIN LISPRO 100 UNIT/ML 3 ML VIAL SUBCUT SCH (22:06)
[2019-09-17] MEDS: NORMAL SALINE 1000 ML 1,000 ML IV PRN (23:13)
[2019-09-18] MEDS: HYDRALAZINE HCL INJ/PF 20 MG/1 ML SDV IV PRN (04:44)
[2019-09-18] MEDS: CLONIDINE HCL 0.2 MG TABLET PO SCH ×3 (07:08→22:04)
[2019-09-18] MEDS: HEPARIN SOD (PORCINE) 5,000 UNIT/ML 1 ML VIAL SUBCUT SCH ×3 (07:08→22:04)
[2019-09-18] MEDS: INSULIN LISPRO 100 UNIT/ML 3 ML VIAL SUBCUT SCH ×4 (08:36→22:05)
[2019-09-18 08:39] LABS: CHOLESTEROL 108.35 mg/dL (0-200); TRIGLYCERIDES 120 mg/dL (<150)
[2019-09-18 08:50] LABS: DIRECT LDL 70 mg/dL (<100)
[2019-09-18 08:55] LABS: ANION GAP 8 (5-19); BLOOD UREA NITROGEN 22 mg/dL (7-20); CALCIUM 8.8 mg/dL (8.4-10.2); CARBON DIOXIDE 22 mmol/L (22-30); CHLORIDE 110 mmol/L (98-107); GLUCOSE 92 mg/dL (75-110); POTASSIUM 4.5 mmol/L (3.6-5.0)
[2019-09-18] MEDS: METOPROLOL SUCCINATE 50 MG TAB.SR.24H PO SCH (09:16)
[2019-09-18] MEDS: ASPIRIN 81 MG TABLET, CHEWABLE PO SCH (09:17)
[2019-09-18] MEDS: HYDRALAZINE HCL 50 MG TABLET PO SCH ×3 (09:17→22:04)
[2019-09-18] MEDS: CLOPIDOGREL BISULFATE 75 MG TABLET PO SCH (09:17)
[2019-09-18] MEDS: ISOSORBIDE MONONITRATE 30 MG TAB.ER.24H PO SCH (09:17)
[2019-09-18] MEDS: NORMAL SALINE 1000 ML 1,000 ML IV PRN ×2 (09:42→16:52)
[2019-09-18] MEDS ORDERED: (PENDING PHARMACY ID) (Hydralazine Hcl [Hydralazine Hcl] 100 MG) PO SCH (10:00)
[2019-09-18] MEDS ORDERED: AMLODIPINE BESYLATE 10 MG TABLET PO SCH (10:00)
--- NOTE | 2019-09-18 14:20 | PDOC PROGRESS REPORT ---
Subjective Progress Note for:: 09/18/19 Subjective:: This is a 74 year old male with a past medical history of hypertension, IDDM, CKD, CAD with prior stenting x2 in hypothyroidism who was brought in due to slurred speech. He was admitted for a subacute CVA and hypertensive urgency. Patient was not a TPA candidate. No acute event overnight. He denies acute complaints. Blood pressures have slightly improved overnight. He has been assessed by speech therapy. Awaiting PT eval. Anticipate discharge in the next 24 hours after better blood pressure control. Reason For Visit: SUBACUTE CVA ,HYPERTENSIVE URGENCY Physical Exam Vital Signs: Temp Pulse Resp BP Pulse Ox 98.3 F 61 16 166/60 H 98 09/18/19 07:59 09/18/19 14:00 09/18/19 09:19 09/18/19 09:19 09/18/19 09:19 Intake & Output 09/17/19 09/18/19 09/19/19 06:59 06:59 06:59 Intake Total 658 342 Output Total 0 Balance 658 342 Weight 176 lb 5.917 oz General appearance: PRESENT: no acute distress, well-developed, well-nourished Head exam: PRESENT: atraumatic, normocephalic Eye exam: PRESENT: conjunctiva pink, EOMI, PERRLA. ABSENT: scleral icterus Ear exam: PRESENT: normal external ear exam Mouth exam: PRESENT: moist, tongue midline Neck exam: ABSENT: carotid bruit, JVD, lymphadenopathy, thyromegaly Respiratory exam: PRESENT: clear to auscultation linda. ABSENT: rales, rhonchi, wheezes Cardiovascular exam: PRESENT: RRR. ABSENT: diastolic murmur, rubs, systolic murmur Pulses: PRESENT: normal dorsalis pedis pul GI/Abdominal exam: PRESENT: normal bowel sounds, soft. ABSENT: distended, guarding, mass, organolmegaly, rebound, tenderness Rectal exam: PRESENT: deferred Extremities exam: PRESENT: full ROM. ABSENT: calf tenderness, clubbing, pedal edema Neurological exam: PRESENT: alert, awake, oriented to person, oriented to place, oriented to time, oriented to situation, CN II-XII grossly intact, motor sensory deficit - 4/5 RSW Results Laboratory Results: 09/17/19 14:53 09/18/19 07:53 09/17/19 09/17/19 09/17/19 14:53 14:53 14:53 WBC 6.5 RBC 2.83 L Hgb 8.0 L Hct 24.4 L MCV 86 MCH 28.2 MCHC 32.7 RDW 16.1 H Plt Count 238 Seg Neutrophils % 72.0 Sodium 138.3 Potassium 4.8 Chloride 104 Carbon Dioxide 23 Anion Gap 11 BUN 25 H Creatinine 1.73 H Est GFR ( Amer) 47 L Glucose 122 H Calcium 9.5 Total Bilirubin 0.2 AST 23 Alkaline Phosphatase 67 Total Protein 7.4 Albumin 4.1 Triglycerides Cholesterol LDL Cholesterol Direct VLDL Cholesterol HDL Cholesterol TSH 1.33 09/18/19 09/18/19 07:53 07:53 WBC RBC Hgb Hct MCV MCH MCHC RDW Plt Count Seg Neutrophils % Sodium 139.5 Potassium 4.5 Chloride 110 H Carbon Dioxide 22 Anion Gap 8 BUN 22 H Creatinine 1.44 H Est GFR ( Amer) 58 L Glucose 92 Calcium 8.8 Total Bilirubin AST Alkaline Phosphatase Total Protein Albumin Triglycerides 120 Cholesterol 108.35 LDL Cholesterol Direct 70 VLDL Cholesterol 24.0 HDL Cholesterol 23 L TSH 09/17/19 09/17/19 09/17/19 14:53 14:53 14:53 Creatine Kinase 106 CK-MB (CK-2) 2.07 Troponin I 0.013 NT-Pro-B Natriuret Pep 09/17/19 14:53 Creatine Kinase CK-MB (CK-2) Troponin I NT-Pro-B Natriuret Pep 323 Impressions: Head CT 09/17/19 14:23 IMPRESSION: 1. Area of hypoattenuation in the distribution of the left MCA that is suspected to represent an acute to subacute ischemic infarct. 2. Hyperdensity within the cistern of the left lateral cerebral fossa could represent an occluding atheromatous plaque within the superior terminal branches of the left MCA. EVIDENCE OF ACUTE STROKE: YES. LEFT MCA. Head CTA 09/17/19 15:45 IMPRESSION: Left MCA infarction. No significant stenosis or aneurysm is seen in the vessels of the [place] or in the posterior circulation. Neck CTA 09/17/19 15:47 IMPRESSION: Calcified and noncalcified atheromatous plaques at the carotid bifurcations that result in less than 50% luminal stenosis. There is no dissection or aneurysm of the cervical vasculature. Assessment and Plan - Diagnosis (1) Acute CVA (cerebrovascular accident) Is this a current diagnosis for this admission?: Yes Plan: Patient has subacute CVA on the left MCA distribution. He is presenting with slurred speech but per he sounds much better and has significantly improved compared to the past few days. Appears expressive aphasia has improved. He does have subtle right-sided weakness with 4/5 strength on the right arm and right leg. Continue atorvastatin, aspirin and Plavix. He has been assessed by speech therapy. Awaiting PT eval. Anticipate discharge in the next 24 hours after better blood pressure control. (2) Hypertensive urgency Is this a current diagnosis for this admission?: Yes Plan: Improved. Will resume his verified home meds which include metoprolol and hydralazine. (3) CAD (coronary artery disease) Qualifiers: Associated angina: with unspecified angina Is this a current diagnosis for this admission?: Yes Plan: Stable. (4) CKD (chronic kidney disease) Qualifiers: Chronic kidney disease stage: unspecified stage Qualified Code(s): N18.9 - Chronic kidney disease, unspecified Is this a current diagnosis for this admission?: Yes Plan: Creatinine is stable and slightly better from yesterday. Reduce IVF to 75 cc/hr. (5) IDDM (insulin dependent diabetes mellitus) Is this a current diagnosis for this admission?: Yes Plan: Patient is on a Lantus-based regimen at home. reports that he has actually been having hypoglycemic episodes in the past several weeks at home. HbA1c came back at 5.8. Will discontinue insulin. - Time Time Spent with patient: 25-34 minutes
[2019-09-18] MEDS: ATORVASTATIN CALCIUM 40 MG TABLET PO SCH (22:04)
[2019-09-19] MEDS: HYDRALAZINE HCL INJ/PF 20 MG/1 ML SDV IV PRN (00:03)
[2019-09-19] MEDS: NORMAL SALINE 1000 ML 1,000 ML IV PRN (04:18)
[2019-09-19] MEDS: HYDRALAZINE HCL 50 MG TABLET PO SCH (05:24)
[2019-09-19] MEDS: HEPARIN SOD (PORCINE) 5,000 UNIT/ML 1 ML VIAL SUBCUT SCH (05:24)
[2019-09-19] MEDS: CLONIDINE HCL 0.2 MG TABLET PO SCH (05:24)
[2019-09-19] MEDS: INSULIN LISPRO 100 UNIT/ML 3 ML VIAL SUBCUT SCH (10:24)
[2019-09-19] MEDS: METOPROLOL SUCCINATE 50 MG TAB.SR.24H PO SCH (10:27)
[2019-09-19] MEDS: CLOPIDOGREL BISULFATE 75 MG TABLET PO SCH (10:27)
[2019-09-19] MEDS: ASPIRIN 81 MG TABLET, CHEWABLE PO SCH (10:27)
[2019-09-19] MEDS: ISOSORBIDE MONONITRATE 30 MG TAB.ER.24H PO SCH (10:27)
[2019-09-19 11:26] VITALS: BP 140/53
--- NOTE | 2019-09-20 15:51 | PDOC DISCHARGE SUMMARY ---
Impression - Admit/DC Date/PCP Admission Date/Primary Care Provider: 09/18/19 10:47 ALEX MILLS MD Discharge Date: 09/19/19 - Discharge Diagnosis (1) Acute CVA (cerebrovascular accident) Is this a current diagnosis for this admission?: Yes (2) Hypertensive urgency Is this a current diagnosis for this admission?: Yes (3) CAD (coronary artery disease) Is this a current diagnosis for this admission?: Yes (4) CKD (chronic kidney disease) Is this a current diagnosis for this admission?: Yes (5) IDDM (insulin dependent diabetes mellitus) Is this a current diagnosis for this admission?: Yes - Additional Information Resuscitation Status: Full Code Discharge Diet: As Tolerated Discharge Activity: Activity As Tolerated, Balance Activity w/Rest Referrals: KIERA MASSEY MD [ACTIVE STAFF] - 09/25/19 9:45 am ALEX MILLS MD [Primary Care Provider] - 09/23/19 5:00 pm (left a message to call with appointment) Prescriptions: Clopidogrel Bisulfate [Plavix 75 mg Tablet] 75 mg PO DAILY #30 tablet Metoprolol Succinate [Toprol XL 100 mg Tablet] 100 mg PO DAILY #30 tab.sr.24h Home Medications: Clonidine HCl 0.2 mg PO BID 07/07/16 Aspirin [Ecotrin 81 mg EC Tablet] 81 mg PO DAILY 09/17/19 Atorvastatin Calcium [Lipitor 80 mg Tablet] 80 mg PO QHS 09/17/19 Ezetimibe [Zetia 10 mg Tablet] 10 mg PO DAILY 09/17/19 Hydralazine HCl 100 mg PO TID 09/17/19 Isosorbide Mononitrate [Imdur 30 mg Tablet.er] 30 mg PO DAILY 09/17/19 Levothyroxine Sodium [Synthroid 0.05 mg Tablet] 50 mcg PO DAILY 09/17/19 Magnesium Oxide [Magnesium] 500 mg PO DAILY 09/17/19 Clopidogrel Bisulfate [Plavix 75 mg Tablet] 75 mg PO DAILY #30 tablet 09/19/19 Metoprolol Succinate [Toprol XL 100 mg Tablet] 100 mg PO DAILY #30 tab.sr.24h 09/19/19 History of Present Illiness History of Present Illness: DONNA BERG is a 74 year old male with a past medical history of hypertension, IDDM, CKD, CAD with prior stenting x2 in hypothyroidism who was brought in due to slurred speech. Patient says that he started having slurred speech and some expressive aphasia 4 days ago. They do not bother to bring him to the ER as they thought it would eventually improve. Patient saw his PCP earlier today and was sent to the ER. CT imaging showed a large left MCA infarct. CT of the head and neck was also pursued in the ER. Results were discussed by ER physician with [facility] who recommended optimizing medical management here as patient is not a TPA candidate. Hospital Course Hospital Course: This is a 74 year old male with a past medical history of hypertension, IDDM, CKD, CAD with prior stenting x2 in hypothyroidism who was brought in due to slurred speech. He was admitted for a subacute CVA and hypertensive urgency. Patient was not a TPA candidate. Blood pressure control was optimized. He has subtle right-sided weakness 4/5 on the right arm and right leg. His says that his expressive aphasia has continued to improve since the onset 4 days ago. Metoprolol and Plavix with added to his regimen. He was evaluated by speech and physical therapy. He will be discharged home with home health and home PT. Physical Exam Vital Signs: Temp Pulse Resp BP Pulse Ox 99.1 F 66 16 140/53 H 98 09/19/19 11:25 09/19/19 11:25 09/19/19 11:25 09/19/19 11:25 09/19/19 11:25 Intake & Output 09/19/19 09/20/19 09/21/19 06:59 06:59 06:59 Intake Total 2877 Balance 2877 Weight 180 lb 5.41 oz General appearance: PRESENT: no acute distress, well-developed, well-nourished Head exam: PRESENT: atraumatic, normocephalic Eye exam: PRESENT: conjunctiva pink, EOMI, PERRLA. ABSENT: scleral icterus Ear exam: PRESENT: normal external ear exam Mouth exam: PRESENT: moist, tongue midline Neck exam: ABSENT: carotid bruit, JVD, lymphadenopathy, thyromegaly Respiratory exam: PRESENT: clear to auscultation linda. ABSENT: rales, rhonchi, wheezes Cardiovascular exam: PRESENT: RRR. ABSENT: diastolic murmur, rubs, systolic murmur Pulses: PRESENT: normal dorsalis pedis pul GI/Abdominal exam: PRESENT: normal bowel sounds, soft. ABSENT: distended, guarding, mass, organolmegaly, rebound, tenderness Rectal exam: PRESENT: deferred Neurological exam: PRESENT: alert, awake, oriented to person, oriented to place, oriented to time, oriented to situation, CN II-XII grossly intact, motor sensory deficit - subtle right-sided weakness with 4/5 strength on the right arm and right leg Results Laboratory Results: WBC 6.5 10^3/uL (4.0-10.5) 09/17/19 14:53 RBC 2.83 10^6/uL (4.35-5.55) L 09/17/19 14:53 Hgb 8.0 g/dL (13.5-17.0) L 09/17/19 14:53 Hct 24.4 % (37.9-51.0) L 09/17/19 14:53 MCV 86 fl (80-97) 09/17/19 14:53 MCH 28.2 pg (27.0-33.4) 09/17/19 14:53 MCHC 32.7 g/dL (32.0-36.0) 09/17/19 14:53 RDW 16.1 % (11.5-14.0) H 09/17/19 14:53 Plt Count 238 10^3/uL (150-450) 09/17/19 14:53 Lymph % (Auto) 13.7 % (13-45) 09/17/19 14:53 [place] % (Auto) 11.8 % (3-13) 09/17/19 14:53 Eos % (Auto) 1.9 % (0-6) 09/17/19 14:53 Baso % (Auto) 0.6 % (0-2) 09/17/19 14:53 Absolute Neuts (auto) 4.7 10^3/uL (1.7-8.2) 09/17/19 14:53 Absolute Lymphs (auto) 0.9 10^3/uL (0.5-4.7) 09/17/19 14:53 Absolute Monos (auto) 0.8 10^3/uL (0.1-1.4) 09/17/19 14:53 Absolute Eos (auto) 0.1 10^3/uL (0.0-0.6) 09/17/19 14:53 Absolute Basos (auto) 0.0 10^3/uL (0.0-0.2) 09/17/19 14:53 Seg Neutrophils % 72.0 % (42-78) 09/17/19 14:53 Sodium 139.5 mmol/L (137-145) 09/18/19 07:53 Potassium 4.5 mmol/L (3.6-5.0) 09/18/19 07:53 Chloride 110 mmol/L (98-107) H 09/18/19 07:53 Carbon Dioxide 22 mmol/L (22-30) 09/18/19 07:53 Anion Gap 8 (5-19) 09/18/19 07:53 BUN 22 mg/dL (7-20) H 09/18/19 07:53 Creatinine 1.44 mg/dL (0.52-1.25) H 09/18/19 07:53 Est GFR ( Amer) 58 (>60) L 09/18/19 07:53 Est GFR (MDRD) Non-Af 48 (>60) L 09/18/19 07:53 Glucose 92 mg/dL (75-110) 09/18/19 07:53 POC Glucose 139 mg/dL (70-110) H 09/19/19 08:06 Hemoglobin A1c % 5.8 % (4.7-6.0) 09/17/19 14:53 Calcium 8.8 mg/dL (8.4-10.2) 09/18/19 07:53 Total Bilirubin 0.2 mg/dL (0.2-1.3) 09/17/19 14:53 Direct Bilirubin 0.0 mg/dL (0.0-0.4) 09/17/19 14:53 Neonat Total Bilirubin Not Reportable 09/17/19 14:53 Neonat Direct Bilirubin Not Reportable 09/17/19 14:53 Neonat Indirect Bili Not Reportable 09/17/19 14:53 AST 23 U/L (17-59) 09/17/19 14:53 ALT 20 U/L (<50) 09/17/19 14:53 Alkaline Phosphatase 67 U/L (38-126) 09/17/19 14:53 Creatine Kinase 106 U/L (55-170) 09/17/19 14:53 CK-MB (CK-2) 2.07 ng/mL (<4.55) 09/17/19 14:53 Troponin I 0.013 ng/mL 09/17/19 14:53 NT-Pro-B Natriuret Pep 323 pg/mL (5-900) 09/17/19 14:53 Total Protein 7.4 g/dL (6.3-8.2) 09/17/19 14:53 Albumin 4.1 g/dL (3.5-5.0) 09/17/19 14:53 Triglycerides 120 mg/dL (<150) 09/18/19 07:53 Cholesterol 108.35 mg/dL (0-200) 09/18/19 07:53 LDL Cholesterol Direct 70 mg/dL (<100) 09/18/19 07:53 VLDL Cholesterol 24.0 mg/dL (10-31) 09/18/19 07:53 HDL Cholesterol 23 mg/dL (>40) L 09/18/19 07:53 TSH 1.33 uIU/mL (0.47-4.68) 09/17/19 14:53 09/17/19 09/17/19 09/17/19 14:53 14:53 14:53 CK-MB (CK-2) 2.07 Troponin I 0.013 NT-Pro-B Natriuret Pep 323 Impressions: Head CT 09/17/19 14:23 IMPRESSION: 1. Area of hypoattenuation in the distribution of the left MCA that is suspected to represent an acute to subacute ischemic infarct. 2. Hyperdensity within the cistern of the left lateral cerebral fossa could represent an occluding atheromatous plaque within the superior terminal branches of the left MCA. EVIDENCE OF ACUTE STROKE: YES. LEFT MCA. Head CTA 09/17/19 15:45 IMPRESSION: Left MCA infarction. No significant stenosis or aneurysm is seen in the vessels of the [place] of [place] or in the posterior circulation. Neck CTA 09/17/19 15:47 IMPRESSION: Calcified and noncalcified atheromatous plaques at the carotid bifurcations that result in less than 50% luminal stenosis. There is no dissection or aneurysm of the cervical vasculature. Stroke Is this a Stroke Patient?: Yes Acute Heart Failure - Is this a Heart Failure Patient?: No
== END 2019-09-19 13:05 | disposition home health service (06) | DRG 66 ==
LOC: ER 14:14 → EH 18:08 → INTOOBSV 18:08 → 3N 21:40 → OBSVTOIN 09-18 10:47
PROVIDERS: ADMIT Internal Medicine; ATTEND Internal Medicine
DX: I63.512 Cerebral infarction due to unspecified occlusion or stenosis of left middle cerebral artery (principal); R47.81 Slurred speech; I16.0 Hypertensive urgency; I25.10 Atherosclerotic heart disease of native coronary artery without angina pectoris; I12.9 Hypertensive chronic kidney disease with stage 1 through stage 4 chronic kidney disease, or unspecified chronic kidney disease; N18.9 Chronic kidney disease, unspecified; E03.9 Hypothyroidism, unspecified; E11.22 Type 2 diabetes mellitus with diabetic chronic kidney disease; Z79.84 Long term (current) use of oral hypoglycemic drugs; Z79.4 Long term (current) use of insulin; Z79.899 Other long term (current) drug therapy
CPT/HCPCS: 36415; 70450; 70496; 70498; 80048; 80053; 80061; 82550; 82553; 82962; 83036; 83880; 84443; 84484; 85025; 99291; J0360; J1644; J1815; J3490; J7030

== ENCOUNTER 2019-09-24 22:50 | Emergency (ER) | payer MEDICARE, OTHER ==
--- NOTE | 2019-09-25 02:03 | ER Document Report ---
ED GI/ - General Chief Complaint: Abdominal Problem Stated Complaint: RIGHT SIDE ABDOMINAL PAIN Time Seen by Provider: 09/25/19 02:02 Primary Care Provider: ALEX MILLS MD [Primary Care Provider] - Follow up as needed Mode of Arrival: Ambulatory Information source: Patient, Relative Notes: HISTORY OF PRESENT ILLNESS: Patient is a 74-year-old male with a past medical history of recent stroke who presents with several hours of hiccups and nausea that family reports patient has not ever had before. Patient does not have history of GERD or reflux, started no new medications and denies chest pain or other symptoms. He describes the symptoms of muscle spasms and cramps in the upper abdomen that goes under the ribs bilaterally. Location: Abdomen Onset: Several hours ago Alleviation: None Provocation: Eating Quality: Cramping Radiation: Along the inferior rib cage bilaterally Severity: Mild Timing: Intermittent History of abdominal surgery: None Associated symptoms: Denies chest pain or shortness of breath, no fevers or chills, no vomiting or diarrhea Last bowel movement: Today and normal REVIEW OF SYSTEMS: CONSTITUTIONAL : Denies fever or chills, no sweats. Denies recent illness. EENT: Denies eye, ear, throat, or mouth pain or symptoms. Denies nasal or sinus congestion. CARDIOVASCULAR: Denies chest pain. Denies swelling of the legs. RESPIRATORY: Denies cough, cold, or chest congestion. Denies shortness of breath or difficulty breathing. Denies wheezing. GASTROINTESTINAL: Positive for abdominal cramping and hiccups. Positive for nausea but no vomiting or diarrhea. Denies constipation. GENITOURINARY: Denies difficulty urinating, painful urination, burning, frequency, or blood in urine. MUSCULOSKELETAL: Denies neck or back pain or joint pain or swelling. SKIN: Denies rash or skin lesions. HEMATOLOGIC : Denies easy bruising or bleeding. LYMPHATIC: Denies swollen, enlarged glands. NEUROLOGICAL: Denies altered mental status or loss of consciousness. Denies headache. Denies weakness or paralysis or loss of use of either side. Denies problems with gait or speech. Denies sensory or motor loss. PSYCHIATRIC: Denies anxiety or stress or depression. All other systems reviewed and negative. PHYSICAL EXAMINATION: GENERAL: Somewhat tired-appearing, well-nourished and in no acute distress. HEAD: Atraumatic, normocephalic. No scalp deformity, depression, or crepitance. EYES: Pupils are 3 mm and equal/round/reactive to light, extraocular movements intact, sclera anicteric, conjunctiva are normal. ENT: Nares patent bilaterally, oropharynx. Moist mucous membranes. No tonsil hypertrophy. NECK: Normal range of motion, supple without lymphadenopathy. LUNGS: Breath sounds present, equal, and clear to auscultation bilaterally. No wheezes, rales, or rhonchi. HEART: Regular rate and rhythm without murmurs, rubs, or gallops. 2+ peripheral pulses. Normal capillary refill. ABDOMEN: Soft, nontender, nondistended. Normoactive bowel sounds. No guarding, no rebound. No masses appreciated. BACK: Normal contour, no midline tenderness. Rectal exam deferred. GENITAL/PELVIC: Deferred. EXTREMITIES: Normal range of motion, no pitting or edema. No cyanosis. NEUROLOGICAL: No focal neurological deficits. Moves all extremities spontaneously and on command. PSYCH: Normal mood, normal affect. No suicidal thoughts/ideations. No homicidal thoughts/ideations. No hallucinations. SKIN: Warm, dry, normal turgor, no rashes or lesions noted. ASSESSMENT AND PLAN: This patient is a 74-year-old male who presents with several hours of uncontrollable hiccups along with nausea. Concern for gastritis versus pancr eatitis versus cholecystitis versus undiagnosed reflux. 1. Will obtain labs, urine, and reassess after GI cocktail. 2. Will perform oral challenge if work-up is negative. TRAVEL OUTSIDE OF THE [place] IN LAST 30 DAYS: No - HPI Patient complains to provider of: Other - Hiccups Onset: This afternoon Timing/Duration: Sudden Quality of pain: Fullness Severity at maximum: Mild Severity in ED: Mild Pain Level: Denies Location: Epigastric, Other Associated symptoms: Nausea Exacerbated by: Denies Relieved by: Denies Similar symptoms previously: No Recently seen / treated by doctor: No - Related Data Allergies/Adverse Reactions: Influenza Virus Vaccines Adverse Reaction (Unknown, Verified 12/02/18 08:42) Fever Home Medications: no list brought metoprolol, etc Past Medical History - General Information source: Patient, Relative - Social History Smoking Status: Never Smoker Chew tobacco use (# tins/day): No Frequency of alcohol use: None Drug Abuse: None Lives with: Family Family History: Reviewed & Not Pertinent Patient has suicidal ideation: No Patient has homicidal ideation: No - Past Medical History Cardiac Medical History: Reports: Hx Coronary Artery Disease, Hx Heart Attack, Hx Hypercholesterolemia, Hx Hypertension Pulmonary Medical History: Reports: None Denies: Hx Asthma EENT Medical History: Reports: None Neurological Medical History: Reports: None. Denies: Hx Cerebrovascular Accident, Hx Seizures Endocrine Medical History: Reports: Hx Diabetes Mellitus Type 2, Hx Hypothyroidism Renal/ Medical History: Reports: Hx Renal Insufficiency. Denies: Hx Peritoneal Dialysis. Comment Only: Hx End Stage Renal Disease - 50% function of kidneys Malignancy Medical History: Reports None GI Medical History: Reports: None. Denies: Hx Hepatitis, Hx Hiatal Hernia, Hx Ulcer Musculoskeletal Medical History: Reports None Skin Medical History: Reports None Psychiatric Medical History: Reports: Hx Depression Traumatic Medical History: Reports: None Infectious Medical History: Reports: None. Denies: Hx Hepatitis Past Surgical History: Reports: Hx Cardiac Surgery - stents, Hx Coronary Stent - To a stent in 2012, Hx Orthopedic Surgery - Immunizations Hx Diphtheria, Pertussis, Tetanus Vaccination: Yes Review of Systems - Review of Systems Constitutional: No symptoms reported EENT: No symptoms reported Cardiovascular: No symptoms reported Respiratory: No symptoms reported Gastrointestinal: See HPI Genitourinary: No symptoms reported Male Genitourinary: No symptoms reported Musculoskeletal: No symptoms reported Skin: No symptoms reported Hematologic/Lymphatic: No symptoms reported Neurological/Psychological: No symptoms reported -: Yes All other systems reviewed and negative Physical Exam - Vital signs Vitals: Temp Pulse Resp BP Pulse Ox 98.0 F 55 L 18 184/52 H 97 09/24/19 22:55 09/24/19 22:55 09/24/19 22:55 09/24/19 22:55 09/24/19 22:55 Interpretation: Normal Course - Re-evaluation Re-evalutation: 09/25/19 05:31 Labs are grossly unremarkable. Patient has not had further episodes of pain or hiccups after his GI cocktail and has been able to pass his oral challenge. Will discharge the patient home with strict return precautions and follow-up with primary care. All results were explained to and discussed with the patient, and all questions addressed and answered. The patient voices both understanding and agreeing with the plan. - Vital Signs Vital signs: Temp Pulse Resp BP Pulse Ox 98.0 F 55 L 18 184/52 H 97 09/24/19 22:55 09/24/19 22:55 09/24/19 22:55 09/24/19 22:55 09/24/19 22:55 - Laboratory Result Diagrams: 09/25/19 03:11 09/25/19 03:11 Laboratory results interpreted by me: 09/25/19 09/25/19 09/25/19 03:11 03:11 04:00 RBC 2.66 L Hgb 7.4 L Hct 22.5 L RDW 16.4 H BUN 38 H Creatinine 1.82 H Est GFR ( Amer) 44 L Est GFR (MDRD) Non-Af 37 L Glucose 211 H Lipase 364.2 H Urine Protein 30 H Urine Glucose (UA) >=500 H Discharge - Discharge Clinical Impression: Hiccups Gastritis Qualifiers: Gastritis type: unspecified gastritis Chronicity: acute Gastritis bleeding: without bleeding Qualified Code(s): K29.00 - Acute gastritis without bleeding Condition: Good Disposition: HOME, SELF-CARE Instructions: Hiccups ([facility]) Additional Instructions: You have been evaluated in the Emergency Department for hiccups and nausea with abdominal pain. While here, you had blood work that was normal and it is now safe to be discharged home. Please follow-up with your primary physician as instructed in one week to be rechecked. Return to the Emergency Department if you experience worsening pain, uncontrollable vomiting, chest pain, difficulty breathing, or any other concerning symptoms. Prescriptions: Ondansetron [Zofran Odt 4 mg Tablet] 1 tab PO Q6HP PRN #30 tab.rapdis PRN Reason: For Nausea/Vomiting Sucralfate [Carafate 1 gm Tablet] 1 gm PO ACHS #20 tablet Referrals: ALEX MILLS MD [Primary Care Provider] - Follow up as needed Print Language: Kiswahili
[2019-09-25] MEDS ORDERED: LIDOCAINE 2% VISCOUS SOLN 20 ML UDCUP PO ONE (02:33)
[2019-09-25] MEDS ORDERED: MAG HYDROX/AL HYDROX/SIMETH SUSP 30 ML UDCUP PO ONE (02:33)
[2019-09-25] MEDS ORDERED: METOCLOPRAMIDE HCL ORAL SOLN 10 MG/10 ML UDCUP PO ONE (02:33)
[2019-09-25 03:23] LABS: ABSOLUTE EOSINOPHILS # (AUTO) 0.1 10^3/uL (0.0-0.6); ABSOLUTE LYMPHOCYTES (AUTO) 0.9 10^3/uL (0.5-4.7); ABSOLUTE MONOCYTES (AUTO) 0.4 10^3/uL (0.1-1.4); ABSOLUTE NEUT (AUTO) 4.4 10^3/uL (1.7-8.2); BASOPHILS % (AUTO) 0.9 % (0-2); EOSINOPHILS % (AUTO) 2.3 % (0-6); HEMATOCRIT 22.5 % (37.9-51.0); LYMPHOCYTES % (AUTO) 14.8 % (13-45); MEAN CORPUSCULAR HEMOGLOBIN 27.7 pg (27.0-33.4); MEAN CORPUSCULAR HGB CONC 32.8 g/dL (32.0-36.0); MEAN CORPUSCULAR VOLUME 85 fl (80-97); MONOCYTES % (AUTO) 7.3 % (3-13); PLATELET COUNT 252 10^3/uL (150-450); RED BLOOD COUNT 2.66 10^6/uL (4.35-5.55); RED CELL DISTRIBUTION WIDTH 16.4 % (11.5-14.0); SEGMENTED NEUTROPHILS % (AUTO) 74.7 % (42-78); TOTAL CELLS COUNTED % (AUTO) 100 %; WHITE BLOOD COUNT 5.8 10^3/uL (4.0-10.5)
[2019-09-25 03:37] LABS: HEMOGLOBIN 7.4 g/dL (13.5-17.0)
[2019-09-25 03:40] LABS: ALBUMIN 3.7 g/dL (3.5-5.0); ALKALINE PHOSPHATASE 77 U/L (38-126); ANION GAP 8 (5-19); ASPARTATE AMINO TRANSFERASE 17 U/L (17-59); BILIRUBIN,DIRECT 0.1 mg/dL (0.0-0.4); BILIRUBIN,TOTAL 0.2 mg/dL (0.2-1.3); BLOOD UREA NITROGEN 38 mg/dL (7-20); CALCIUM 9.7 mg/dL (8.4-10.2); CARBON DIOXIDE 27 mmol/L (22-30); CHLORIDE 105 mmol/L (98-107); GLUCOSE 211 mg/dL (75-110); TOTAL PROTEIN 6.8 g/dL (6.3-8.2)
[2019-09-25 03:46] LABS: ALCOHOL < 10 mg/dL (NONE DETECTED)
[2019-09-25 04:31] LABS: APPEARANCE,URINE CLEAR; BILIRUBIN,URINE NEGATIVE (NEGATIVE); COLOR,URINE STRAW; GLUCOSE, URINE >=500 mg/dL (NEGATIVE); KETONES,URINE NEGATIVE (NEGATIVE); LEUKOCYTE ESTERASE,URINE NEGATIVE (NEGATIVE); NITRITE,URINE NEGATIVE (NEGATIVE); PROTEIN,URINE 30 mg/dL (NEGATIVE); URINE SPECIFIC GRAVITY 1.015; UROBILINOGEN,URINE NEGATIVE mg/dL (<2.0)
[2019-09-25 04:44] LABS: URINE AMPHETAMINES SCREEN NEGATIVE; URINE BARBITURATES SCREEN NEGATIVE; URINE BENZODIAZEPINES SCREEN NEGATIVE; URINE COCAINE SCREEN NEGATIVE; URINE MARIJUANA (THC) SCREEN NEGATIVE; URINE METHADONE SCREEN NEGATIVE; URINE PHENCYCLIDINE SCREEN NEGATIVE
[2019-09-25 05:45] VITALS: BP 166/53
== END 2019-09-25 05:55 | disposition home or self-care (01) ==
LOC: ER 22:50
DX: R06.6 Hiccough (principal); K29.00 Acute gastritis without bleeding; R11.0 Nausea; R10.9 Unspecified abdominal pain; I25.10 Atherosclerotic heart disease of native coronary artery without angina pectoris; E78.00 Pure hypercholesterolemia, unspecified; I10 Essential (primary) hypertension; I25.2 Old myocardial infarction
CPT/HCPCS: 99284; 36415; 80307 ×2; 83690; 85025; 80053; 81001; 84484; J3490; A9270 ×2

== ENCOUNTER 2019-10-18 14:12 | Emergency (ER) | payer MEDICARE, OTHER ==
--- NOTE | 2019-10-18 16:01 | ER Document Report ---
ED GI/ - General Chief Complaint: Rectal Pain Stated Complaint: RECTAL PAIN Time Seen by Provider: 10/18/19 15:54 Primary Care Provider: ALEX MILLS MD [Primary Care Provider] - Follow up as needed Mode of Arrival: Ambulatory Information source: Patient Notes: 74-year-old man presents to the emergency depart 10/09. Complaining of pain in the rectal area and lower abdominal cramping pain. Has vomiting, fever, prior history of constipation. He has had a CVA approximately 3 weeks ago with a good recovery of lower and upper extremity weakness. He is presently in speech therapy. TRAVEL OUTSIDE OF THE [place] IN LAST 30 DAYS: No - Related Data Allergies/Adverse Reactions: Influenza Virus Vaccines Adverse Reaction (Unknown, Verified 10/18/19 14:15) Fever Past Medical History - Social History Smoking Status: Former Smoker Chew tobacco use (# tins/day): No Frequency of alcohol use: None Drug Abuse: None Family History: Reviewed & Not Pertinent Patient has suicidal ideation: No Patient has homicidal ideation: No - Past Medical History Cardiac Medical History: Reports: Hx Coronary Artery Disease, Hx Heart Attack, Hx Hypercholesterolemia, Hx Hypertension Pulmonary Medical History: Denies: Hx Asthma Neurological Medical History: Denies: Hx Cerebrovascular Accident, Hx Seizures Endocrine Medical History: Reports: Hx Diabetes Mellitus Type 2, Hx Hyp othyroidism Renal/ Medical History: Reports: Hx Renal Insufficiency. Denies: Hx Peritoneal Dialysis. Comment Only: Hx End Stage Renal Disease - 50% function of kidneys GI Medical History: Denies: Hx Hepatitis, Hx Hiatal Hernia, Hx Ulcer Psychiatric Medical History: Reports: Hx Depression Infectious Medical History: Denies: Hx Hepatitis Past Surgical History: Reports: Hx Cardiac Catheterization, Hx Cardiac Surgery - stents x 2, Hx Coronary Stent - To a stent in 2013, Hx Orthopedic Surgery - Immunizations Hx Diphtheria, Pertussis, Tetanus Vaccination: Yes Review of Systems - Review of Systems Notes: Constitutional: Negative for fever. Cardiovascular: Negative for chest pain. Respiratory: Negative for shortness of breath. Gastrointestinal: + Abdominal pain, + rectal pain. Musculoskeletal: Negative for back pain. Skin: Negative for rash. Neurological: Negative for weakness or numbness. 10 point ROS negative except as marked above and in HPI. Physical Exam - Vital signs Vitals: Temp Pulse Resp BP Pulse Ox 97.7 F 58 L 20 137/65 H 100 10/18/19 14:15 10/18/19 14:15 10/18/19 14:15 10/18/19 14:15 10/18/19 14:15 - Notes Notes: PHYSICAL EXAMINATION: GENERAL: Chronically ill-appearing 74-year-old man moderate distress secondary to abdominal and rectal pain HEAD: Atraumatic, normocephalic. EYES: Pupils equal round and reactive to light, extraocular movements intact, sclera anicteric, conjunctiva are normal. ENT: nares patent, oropharynx clear without exudates. Moist mucous membranes. NECK: Normal range of motion, supple without lymphadenopathy LUNGS: Breath sounds clear to auscultation bilaterally and equal. No wheezes rales or rhonchi. HEART: Regular rate and rhythm without murmurs ABDOMEN: Soft, tenderness in the periumbilical and left lower quadrant region, no guarding, no rebound, active bowel sounds. EXTREMITIES: Normal range of motion, no pitting or edema. No cyanosis. NEUROLOGICAL: No focal neurological deficits. Moves all extremities spontaneously and on command. PSYCH: Normal mood, normal affect. SKIN: Warm, Dry, normal turgor, no rashes or lesions noted. Course - Re-evaluation Re-evalutation: 10/18/19 20:05 Patient presents with 2-week history of no bowel movement, abdominal pain rectal pain, KUB x-ray revealed moderate amounts of stool throughout the colon with scattered gas. Patient was given a soap suds enema with good results. Patient and family states that they are ready to go home. - Vital Signs Vital signs: Temp Pulse Resp BP Pulse Ox 97.7 F 58 L 20 137/65 H 100 10/18/19 14:15 10/18/19 14:15 10/18/19 14:15 10/18/19 14:15 10/18/19 14:15 - Diagnostic Test Radiology reviewed: Image reviewed, Reports reviewed - KUB x-ray: Diffuse and moderate stool with gas. Discharge - Discharge Clinical Impression: Constipation Qualifiers: Constipation type: unspecified constipation type Qualified Code(s): K59.00 - Constipation, unspecified Disposition: HOME, SELF-CARE Instructions: Constipation ([facility]) Additional Instructions: Fluids, using milk of magnesia, MiraLAX as a preventative for severe constipation. Please follow-up with your primary care doctor Referrals: ALEX MILLS MD [Primary Care Provider] - Follow up as needed
--- NOTE | 2019-10-18 16:44 | RADIOLOGY REPORT (SQ) ---
EXAM DESCRIPTION: KUB/ABDOMEN (SINGLE VIEW) COMPLETED DATE/TIME: 10/18/2019 4:28 pm REASON FOR STUDY: Abdominal pain COMPARISON: None. NUMBER OF VIEWS: One view. TECHNIQUE: Supine radiographic image of the abdomen acquired. LIMITATIONS: None. FINDINGS: BOWEL GAS PATTERN: Nonobstructive bowel gas pattern. Moderate to severe colorectal stool burden. CALCIFICATIONS: No calcifications projecting within the renal fossa a or along the expected course of the ureters SOFT TISSUES: No abnormality. HARDWARE: None in the abdomen. BONES: No acute findings. OTHER: No other finding. IMPRESSION: Nonobstructive bowel gas pattern. Evidence of constipation with a moderate to severe of colorectal stool burden. TECHNICAL DOCUMENTATION: JOB ID: [id number] [employer]- All Rights Reserved Reading location - IP/workstation name: [email or web address]
[2019-10-18 20:35] VITALS: BP 157/44
== END 2019-10-18 20:35 | disposition home or self-care (01) ==
LOC: ER 14:12
DX: K59.00 Constipation, unspecified (principal); K62.89 Other specified diseases of anus and rectum; R10.30 Lower abdominal pain, unspecified; R10.815 Periumbilic abdominal tenderness; R10.814 Left lower quadrant abdominal tenderness; R11.10 Vomiting, unspecified; R50.9 Fever, unspecified; I25.10 Atherosclerotic heart disease of native coronary artery without angina pectoris; I10 Essential (primary) hypertension; E11.9 Type 2 diabetes mellitus without complications; Z87.891 Personal history of nicotine dependence
CPT/HCPCS: 74018; 99283

== ENCOUNTER 2019-12-14 22:42 | Emergency (ER) | payer MEDICARE, OTHER ==
--- NOTE | 2019-12-14 23:15 | ER Document Report ---
ED Medical Screen (RME) - General Chief Complaint: Constipation Stated Complaint: POSSIBLE CONSTIPATION Time Seen by Provider: 12/14/19 23:13 Primary Care Provider: JESSICA ROSE FNP-C [Primary Care Provider] - Follow up as needed Notes: HPI: History is obtained from the patient and the family members. A 74-year-old male with history of CVA with no deficits except for slight speech slurring, MRI, diabetes, constipation presenting for lower abdominal discomfort over the last 2 weeks. Patient has not apparently had a bowel movement for 2 weeks. Family members indicate that they had to bring the patient here 2 weeks ago for evaluation of similar symptoms. Patient apparently received an enema and felt better. Family members indicate they have had him on MiraLAX daily, tried a fleets enema today but he was not able to retain it. Patient denies fever. He denies nausea or vomiting. Patient complains of some discomfort in the lower abdomen. I have greeted and performed a rapid initial assessment of this patient. A comprehensive ED assessment and evaluation of the patient, analysis of test results and completion of the medical decision making process will be conducted by additional ED providers PHYSICAL EXAMINATION: GENERAL: Well-appearing, well-nourished and in no acute distress. HEAD: Atraumatic, normocephalic. EYES: sclera anicteric, conjunctiva are normal. ENT: Moist mucous membranes. NECK: Normal range of motion LUNGS: Normal work of breathing HEART: 2+ radial pulses bilaterally ABD: limited by positioning for exam in triage. Mild tenderness across the lower abdomen on palpation, intact bowel sounds throughout EXTREMITIES: no pitting or edema. No cyanosis. NEUROLOGICAL: oves all extremities spontaneously and on command. PSYCH: Normal mood, normal affect. SKIN: Warm, Dry, normal turgor, no rashes or lesions noted. TRAVEL OUTSIDE OF THE [place] IN LAST 30 DAYS: No - Related Data Allergies/Adverse Reactions: Influenza Virus Vaccines Adverse Reaction (Unknown, Verified 10/18/19 14:15) Fever Past Medical History - Past Medical History Cardiac Medical History: Reports: Hx Coronary Artery Disease, Hx Heart Attack, Hx Hypercholesterolemia, Hx Hypertension Pulmonary Medical History: Denies: Hx Asthma Neurological Medical History: Denies: Hx Cerebrovascular Accident, Hx Seizures Endocrine Medical History: Reports: Hx Diabetes Mellitus Type 2, Hx Hypothyroidi sm Renal/ Medical History: Reports: Hx Renal Insufficiency. Denies: Hx Peritoneal Dialysis. Comment Only: Hx End Stage Renal Disease - 50% function of kidneys GI Medical History: Denies: Hx Hepatitis, Hx Hiatal Hernia, Hx Ulcer Psychiatric Medical History: Reports: Hx Depression Infectious Medical History: Denies: Hx Hepatitis Past Surgical History: Reports: Hx Cardiac Catheterization, Hx Cardiac Surgery - stents x 2, Hx Coronary Stent - To a stent in 2013, Hx Orthopedic Surgery - Immunizations Hx Diphtheria, Pertussis, Tetanus Vaccination: Yes Physical Exam - Vital signs Vitals: Temp Pulse Resp BP Pulse Ox 98.4 F 65 16 156/49 H 98 12/14/19 22:50 12/14/19 22:50 12/14/19 22:50 12/14/19 22:50 12/14/19 22:50 Course - Vital Signs Vital signs: Temp Pulse Resp BP Pulse Ox 98.4 F 65 16 156/49 H 98 12/14/19 22:50 12/14/19 22:50 12/14/19 22:50 12/14/19 22:50 12/14/19 22:50 Doctor's Discharge - Discharge Referrals: JESSICA ROSE FNP-C [Primary Care Provider] - Follow up as needed
--- NOTE | 2019-12-14 23:49 | RADIOLOGY REPORT (SQ) ---
EXAM DESCRIPTION: XR ABDOMEN 2 VIEWS SUPINE ERECT COMPLETED DATE/TME: 12/14/2019 23:13 CLINICAL HISTORY: 74 years Male, lower abd pain/constipation COMPARISON:Oct 18 NUMBER OF VIEWS/TECHNIQUE: 3 FINDINGS: Intestinal gas pattern is within normal limits. Paucity of bowel gas. Colonic stool retention. No suspicious calcification. Grossly intact skeletal structures. IMPRESSION: No acute findings.
[2019-12-15] MEDS ORDERED: MINERAL OIL 30 ML UDCUP PR ONE ×2 (00:47→02:31)
--- NOTE | 2019-12-15 01:05 | ER Document Report ---
ED GI/ - General Chief Complaint: Constipation Stated Complaint: POSSIBLE CONSTIPATION Time Seen by Provider: 12/14/19 23:13 Primary Care Provider: JESSICA ROSE FNP-C [NO LOCAL MD] - Follow up in 3-5 days Notes: Patient is a 74-year-old male that comes emergency department for chief complaint of cramping in his mid to lower abdomen. Patient reportedly has not had a bowel movement in over a week. Patient lives at home with his family, patient and family state that he struggles with constipation, they have tried a variety of stool softeners but they do not help and when he gets this bad they bring him in for an enema. He denies vomiting, fever, he has been able to eat. He denies any other complaints. Patient has not had any abdominal surgeries. Past medical history includes diabetes, CVA, CAD, chronic kidney disease, anemia. TRAVEL OUTSIDE OF THE [place] IN LAST 30 DAYS: No - Related Data Allergies/Adverse Reactions: Influenza Virus Vaccines Adverse Reaction (Unknown, Verified 10/18/19 14:15) Fever Home Medications: family doesn't remember. Past Medical History - General Information source: Patient - Social History Smoking Status: Never Smoker Frequency of alcohol use: None Drug Abuse: None Lives with: Family Family History: Reviewed & Not Pertinent Patient has suicidal ideation: No Patient has homicidal ideation: No - Past Medical History Cardiac Medical History: Reports: Hx Coronary Artery Disease, Hx Heart Attack, Hx Hypercholesterolemia, Hx Hypertension Pulmonary Medical History: Denies: Hx Asthma Neurological Medical History: Denies: Hx Cerebrovascular Accident, Hx Seizures Endocrine Medical History: Reports: Hx Diabetes Mellitus Type 2, Hx Hypothyroidism Renal/ Medical History: Reports: Hx Renal Insufficiency. Denies: Hx Peritoneal Dialysis. Comment Only: Hx End Stage Renal Disease - 50% function of kidneys GI Medical History: Denies: Hx Hepatitis, Hx Hiatal Hernia, Hx Ulcer Psychiatric Medical History: Reports: Hx Depression Infectious Medical History: Denies: Hx Hepatitis Past Surgical History: Reports: Hx Cardiac Catheterization, Hx Cardiac Surgery - stents x 2, Hx Coronary Stent - To a stent in 2013, Hx Orthopedic Surgery - Immunizations Hx Diphtheria, Pertussis, Tetanus Vaccination: Yes Review of Systems - Review of Systems Constitutional: No symptoms reported EENT: No symptoms reported Cardiovascular: No symptoms reported Respiratory: No symptoms reported Gastrointestinal: See HPI Genitourinary: No symptoms reported Male Genitourinary: No symptoms reported Musculoskeletal: No symptoms reported Skin: No symptoms reported Hematologic/Lymphatic: No symptoms reported Neurological/Psychological: No symptoms reported Physical Exam - Vital signs Vitals: Temp Pulse Resp BP Pulse Ox 98.4 F 65 16 156/49 H 98 12/14/19 22:50 12/14/19 22:50 12/14/19 22:50 12/14/19 22:50 12/14/19 22:50 - Notes Notes: GENERAL: Alert, interacts well. No acute distress. HEAD: Normocephalic, atraumatic. EYES: Pupils equal, round, and reactive to light. Extraocular movements intact. ENT: Oral mucosa moist, tongue midline. Oropharynx unremarkable. Airway patent. LUNGS: Clear to auscultation bilaterally, no wheezes, rales, or rhonchi. No respiratory distress. HEART: Regular rate and rhythm. No murmur ABDOMEN: Soft, non-tender. Non-distended. Bowel sounds present in all 4 quadrants. GENITOURINARY: Deferred EXTREMITIES: Moves all 4 extremities spontaneously. No edema, normal radial and dorsalis pedis pulses bilaterally. No cyanosis. BACK: no cervical, thoracic, lumbar midline tenderness. No saddle anesthesia, normal distal neurovascular exam. Moves all extremities in full range of motion. NEUROLOGICAL: Alert and oriented x3. Cranial nerves II through XII grossly intact. PSYCH: Normal affect, normal mood. SKIN: Warm, dry, normal turgor. No rashes or lesions noted. Course - Re-evaluation Re-evalutation: Patient does appear to have a nontender abdomen. Because of patient's age and complaints of abdominal pain I recommended laboratory work-up and even possible imaging in addition to the performed x-ray. However this was declined by patient and family, they state this is patient's typical pattern, he states the pain is similar to before, they also state that he had negative lab work with his primary care provider yesterday. X-ray shows retained stool but no obstructive or concerning findings. After initial enema patient had minimal results however patient and family are both asking for a second enema, they state usually the second enema works. After the second enema was performed patient did have excellent results and his symptoms completely resolved. On evaluation patient is smiling, has no compl aints, requesting to leave. Discussed monitoring and return precautions as well as follow-up with patient and family. They state understanding and agreement. - Vital Signs Vital signs: Temp Pulse Resp BP Pulse Ox 98.2 F 72 16 142/69 H 98 12/15/19 03:56 12/15/19 03:56 12/15/19 03:56 12/15/19 03:56 12/15/19 03:56 Discharge - Discharge Clinical Impression: Abdominal pain Qualifiers: Abdominal location: generalized Qualified Code(s): R10.84 - Generalized abdominal pain Constipation Qualifiers: Constipation type: unspecified constipation type Qualified Code(s): K59.00 - Constipation, unspecified Condition: Stable Disposition: HOME, SELF-CARE Additional Instructions: Based on your evaluation it seems most likely that the pain you were having was caused by constipation. Take the stool softener as prescribed for the next several days. Take Tylenol for pain. Drink plenty of fluids. Return if you worsen including vomiting, fever, confusion, severe worsening pain, swelling of the abdomen, or any other concerning or worsening symptoms. Prescriptions: Polyethylene Glycol 3350 [Miralax Powder 17 gm/Packet] 1 packet PO DAILY #1 pkg Referrals: JESSICA ROSE FNP-C [NO LOCAL MD] - Follow up in 3-5 days
[2019-12-15 03:57] VITALS: BP 142/69
== END 2019-12-15 03:56 | disposition home or self-care (01) ==
LOC: ER 22:42
DX: K59.00 Constipation, unspecified (principal); R10.84 Generalized abdominal pain; R10.30 Lower abdominal pain, unspecified; I25.10 Atherosclerotic heart disease of native coronary artery without angina pectoris; E78.00 Pure hypercholesterolemia, unspecified; I10 Essential (primary) hypertension; E11.9 Type 2 diabetes mellitus without complications; I25.2 Old myocardial infarction
CPT/HCPCS: 99283; 74019; A9270; C1758; J3490

== ENCOUNTER → 2020-01-07 | Outpatient (CLI) | payer MEDICARE, OTHER ==
[2020-01-07 08:28] LABS: ABSOLUTE EOSINOPHILS # (AUTO) 0.1 10^3/uL (0.0-0.6); ABSOLUTE LYMPHOCYTES (AUTO) 0.8 10^3/uL (0.5-4.7); ABSOLUTE MONOCYTES (AUTO) 0.4 10^3/uL (0.1-1.4); ABSOLUTE NEUT (AUTO) 2.9 10^3/uL (1.7-8.2); BASOPHILS % (AUTO) 0.9 % (0-2); EOSINOPHILS % (AUTO) 2.9 % (0-6); HEMATOCRIT 28.2 % (37.9-51.0); HEMOGLOBIN 9.6 g/dL (13.5-17.0); LYMPHOCYTES % (AUTO) 18.2 % (13-45); MEAN CORPUSCULAR HEMOGLOBIN 28.9 pg (27.0-33.4); MEAN CORPUSCULAR HGB CONC 33.9 g/dL (32.0-36.0); MEAN CORPUSCULAR VOLUME 85 fl (80-97); MONOCYTES % (AUTO) 8.7 % (3-13); PLATELET COUNT 231 10^3/uL (150-450); RED BLOOD COUNT 3.31 10^6/uL (4.35-5.55); RED CELL DISTRIBUTION WIDTH 19.4 % (11.5-14.0); SEGMENTED NEUTROPHILS % (AUTO) 69.3 % (42-78); TOTAL CELLS COUNTED % (AUTO) 100 %; WHITE BLOOD COUNT 4.2 10^3/uL (4.0-10.5)
[2020-01-07 08:47] LABS: APPEARANCE,URINE CLEAR; BILIRUBIN,URINE NEGATIVE (NEGATIVE); COLOR,URINE YELLOW; GLUCOSE, URINE 50 mg/dL (NEGATIVE); KETONES,URINE NEGATIVE (NEGATIVE); LEUKOCYTE ESTERASE,URINE MODERATE (NEGATIVE); NITRITE,URINE NEGATIVE (NEGATIVE); PROTEIN,URINE 100 mg/dL (NEGATIVE); URINE SPECIFIC GRAVITY 1.015; UROBILINOGEN,URINE NEGATIVE mg/dL (<2.0)
[2020-01-07 08:52] LABS: ALBUMIN 4.3 g/dL (3.5-5.0); ANION GAP 11 (5-19); BLOOD UREA NITROGEN 33 mg/dL (7-20); CALCIUM 9.9 mg/dL (8.4-10.2); CARBON DIOXIDE 26 mmol/L (22-30); CHLORIDE 102 mmol/L (98-107); GLUCOSE 146 mg/dL (75-110); PHOSPHORUS 3.6 mg/dL (2.5-4.5)
[2020-01-07 09:15] LABS: UR PRO/CREAT RATIO RESULT 0.3 mg/mg (0.0-0.2); URINE CREATININE 192.7 mg/dL (22-328); URINE PROTEIN 54.7 mg/dL (<12)
== END ==
LOC: OD 07:44
PROVIDERS: ATTEND Internal Medicine Nephrology
DX: I12.9 Hypertensive chronic kidney disease with stage 1 through stage 4 chronic kidney disease, or unspecified chronic kidney disease (principal); N18.3 Chronic kidney disease, stage 3 (moderate); E11.22 Type 2 diabetes mellitus with diabetic chronic kidney disease; D63.1 Anemia in chronic kidney disease; E87.5 Hyperkalemia
CPT/HCPCS: 36415; 80069; 81001; 82306; 82570; 83970; 84156; 85025

== ENCOUNTER → 2020-04-21 | Outpatient (CLI) | payer MEDICARE, OTHER ==
[2020-04-21 08:32] LABS: ABSOLUTE BASOPHILS # (AUTO) 0.1 10^3/uL (0.0-0.2); ABSOLUTE EOSINOPHILS # (AUTO) 0.1 10^3/uL (0.0-0.6); ABSOLUTE LYMPHOCYTES (AUTO) 0.9 10^3/uL (0.5-4.7); ABSOLUTE MONOCYTES (AUTO) 0.6 10^3/uL (0.1-1.4); ABSOLUTE NEUT (AUTO) 3.4 10^3/uL (1.7-8.2); EOSINOPHILS % (AUTO) 2.8 % (0-6); HEMATOCRIT 23.9 % (37.9-51.0); HEMOGLOBIN 8.1 g/dL (13.5-17.0); LYMPHOCYTES % (AUTO) 18.1 % (13-45); MEAN CORPUSCULAR HEMOGLOBIN 28.6 pg (27.0-33.4); MEAN CORPUSCULAR HGB CONC 33.8 g/dL (32.0-36.0); MEAN CORPUSCULAR VOLUME 85 fl (80-97); MONOCYTES % (AUTO) 11.7 % (3-13); PLATELET COUNT 227 10^3/uL (150-450); RED BLOOD COUNT 2.82 10^6/uL (4.35-5.55); RED CELL DISTRIBUTION WIDTH 20.7 % (11.5-14.0); SEGMENTED NEUTROPHILS % (AUTO) 66.4 % (42-78); TOTAL CELLS COUNTED % (AUTO) 100 %; WHITE BLOOD COUNT 5.1 10^3/uL (4.0-10.5)
[2020-04-21 08:59] LABS: ANION GAP 8 (5-19); BLOOD UREA NITROGEN 32 mg/dL (7-20); CALCIUM 9.7 mg/dL (8.4-10.2); CARBON DIOXIDE 24 mmol/L (22-30); CHLORIDE 106 mmol/L (98-107); GLUCOSE 119 mg/dL (75-110); POTASSIUM 5.3 mmol/L (3.6-5.0)
[2020-04-21 09:03] LABS: UR PRO/CREAT RATIO RESULT 0.3 mg/mg (0.0-0.2); URINE PROTEIN 43.9 mg/dL (<12)
== END ==
LOC: OD 07:58
PROVIDERS: ATTEND Internal Medicine Nephrology
DX: E11.22 Type 2 diabetes mellitus with diabetic chronic kidney disease (principal); I12.9 Hypertensive chronic kidney disease with stage 1 through stage 4 chronic kidney disease, or unspecified chronic kidney disease; N18.3 Chronic kidney disease, stage 3 (moderate); R80.9 Proteinuria, unspecified
CPT/HCPCS: 36415; 80048; 82570; 83970; 84156; 85025

== ENCOUNTER 2020-06-09 11:46 | Outpatient (CLI) | payer MEDICARE, OTHER ==
[2020-06-09] MEDS ORDERED: FERUMOXYTOL (NON-ESRD) 510 MG/NS 100 ML IV PRN ×2 (11:47)
[2020-06-09] MEDS ORDERED: NORMAL SALINE 250 ML IV PRN (11:48)
[2020-06-09 12:05] VITALS: BP 176/57
== END 2020-06-09 13:00 | disposition home or self-care (01) ==
LOC: II 11:46 → 5TH 12:13 → II 13:00
PROVIDERS: ATTEND Internal Medicine Hematology & Oncology
DX: D50.9 Iron deficiency anemia, unspecified (principal); K90.9 Intestinal malabsorption, unspecified
CPT/HCPCS: 96365; Q0138; J7050

== ENCOUNTER 2020-06-16 11:53 | Outpatient (CLI) | payer MEDICARE, OTHER ==
[~2020-06-16 11:53] MED LIST: FERUMOXYTOL (NON-ESRD) 510 MG/NS 100 ML IV PRN; NORMAL SALINE 250 ML IV PRN
[2020-06-16 11:58] VITALS: BP 188/56
== END 2020-06-16 12:30 | disposition home or self-care (01) ==
LOC: II 11:53 → 5TH 11:55 → II 12:30
PROVIDERS: ATTEND Internal Medicine Hematology & Oncology
DX: D50.9 Iron deficiency anemia, unspecified (principal); K90.9 Intestinal malabsorption, unspecified
CPT/HCPCS: 96365; Q0138; J7050

== ENCOUNTER 2020-08-07 07:48 | Outpatient (CLI) | payer MEDICARE ==
[2020-08-07 08:04] VITALS: BP 254/95
== END 2020-08-07 08:45 | disposition home or self-care (01) ==
LOC: II 07:48 → 5TH 07:49 → II 08:45
PROVIDERS: ATTEND Internal Medicine Hematology & Oncology
DX: D50.9 Iron deficiency anemia, unspecified (principal); K90.9 Intestinal malabsorption, unspecified
CPT/HCPCS: 96365; Q0138; J7050

== ENCOUNTER 2020-08-14 07:40 | Outpatient (CLI) | payer MEDICARE ==
[2020-08-14 08:06] VITALS: BP 201/70
== END 2020-08-14 08:45 | disposition home or self-care (01) ==
LOC: II 07:40 → 5TH 07:42 → II 08:45
PROVIDERS: ATTEND Internal Medicine Hematology & Oncology
DX: D50.9 Iron deficiency anemia, unspecified (principal); K90.9 Intestinal malabsorption, unspecified
CPT/HCPCS: 96365; Q0138; J7050

== ENCOUNTER 2020-10-20 08:02 | Outpatient (CLI) | payer MEDICARE, OTHER ==
[~2020-10-20 08:02] MED LIST changes: -FERUMOXYTOL (NON-ESRD) 510 MG/NS 100 ML IV PRN; +FERUMOXYTOL 510 MG in NORMAL SALINE 100 ML IV PRN; -NORMAL SALINE 250 ML IV PRN
[2020-10-20] MEDS ORDERED: NORMAL SALINE 250 ML IV PRN (08:30)
[2020-10-20 08:37] VITALS: BP 168/94
== END 2020-10-20 09:45 | disposition home or self-care (01) ==
LOC: II 08:02 → 5TH 08:09 → II 09:45
PROVIDERS: ATTEND Internal Medicine Hematology & Oncology
DX: D50.9 Iron deficiency anemia, unspecified (principal); K90.9 Intestinal malabsorption, unspecified
CPT/HCPCS: 96365; Q0138; J7050

== ENCOUNTER 2020-10-21 16:26 | Emergency (ER) | payer MEDICARE, OTHER ==
[2020-10-21 17:42] LABS: ABSOLUTE BASOPHILS # (AUTO) 0.1 10^3/uL (0.0-0.2); ABSOLUTE EOSINOPHILS # (AUTO) 0.1 10^3/uL (0.0-0.6); ABSOLUTE LYMPHOCYTES (AUTO) 0.8 10^3/uL (0.5-4.7); ABSOLUTE MONOCYTES (AUTO) 0.7 10^3/uL (0.1-1.4); ABSOLUTE NEUT (AUTO) 3.8 10^3/uL (1.7-8.2); BASOPHILS % (AUTO) 1.2 % (0-2); EOSINOPHILS % (AUTO) 2.4 % (0-6); HEMATOCRIT 32.7 % (37.9-51.0); HEMOGLOBIN 10.8 g/dL (13.5-17.0); LYMPHOCYTES % (AUTO) 14.5 % (13-45); MEAN CORPUSCULAR HEMOGLOBIN 28.6 pg (27.0-33.4); MEAN CORPUSCULAR VOLUME 87 fl (80-97); MONOCYTES % (AUTO) 12.2 % (3-13); PLATELET COUNT 179 10^3/uL (150-450); RED BLOOD COUNT 3.78 10^6/uL (4.35-5.55); RED CELL DISTRIBUTION WIDTH 17.4 % (11.5-14.0); SEGMENTED NEUTROPHILS % (AUTO) 69.7 % (42-78); TOTAL CELLS COUNTED % (AUTO) 100 %; WHITE BLOOD COUNT 5.5 10^3/uL (4.0-10.5)
[2020-10-21 17:57] LABS: ALBUMIN 3.6 g/dL (3.5-5.0); ALKALINE PHOSPHATASE 88 U/L (38-126); ANION GAP 7 (5-19); ASPARTATE AMINO TRANSFERASE 35 U/L (17-59); BILIRUBIN,DIRECT 0.1 mg/dL (0.0-0.4); BILIRUBIN,TOTAL 0.4 mg/dL (0.2-1.3); BLOOD UREA NITROGEN 31 mg/dL (7-20); CALCIUM 9.4 mg/dL (8.4-10.2); CARBON DIOXIDE 22 mmol/L (22-30); CHLORIDE 108 mmol/L (98-107); CREATINE KINASE 418 U/L (55-170); GLUCOSE 127 mg/dL (75-110); POTASSIUM 4.8 mmol/L (3.6-5.0); TOTAL PROTEIN 6.6 g/dL (6.3-8.2)
[2020-10-21] MEDS ORDERED: FUROSEMIDE INJ/PF 40 MG/4 ML SDV IV ONE (18:08)
[2020-10-21 18:09] LABS: CREATINE KINASE MB 4.69 ng/mL (<4.55)
[2020-10-21 18:11] LABS: TROPONIN I 0.034 ng/mL
--- NOTE | 2020-10-21 19:41 | EKG REPORT ---
SEVERITY:- ABNORMAL ECG - SINUS RHYTHM PROBABLE LEFT VENTRICULAR HYPERTROPHY : Confirmed by: Diego Queen MD 21-Oct-2020 19:41:05
--- NOTE | 2020-10-21 20:02 | ER Document Report ---
Entered by RG BRAR SCRIBE 10/21/20 3656 Acting as scribe for:PREETHI SINGH DO ED General - General Chief Complaint: High Blood Pressure Stated Complaint: HIGH BLOOD PRESSURE Time Seen by Provider: 10/21/20 17:46 Primary Care Provider: BRANDIN DASILVA MD [Primary Care Provider] - Follow up as needed Information source: Patient, Relative, [facility] Records Notes: This 75 year old male patient presents to the emergency department today with complaints of high systolic blood pressure. 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 Patient reports swelling to his bilateral lower extremities for around the past 7 months. Denies any recent illness, fever, cough, chest pain with exertion, or shortness of breath at night. Patient's reports history of HTN, HLD, DM type 2, CAD, NSTEMI, cardiac cath, x2 stents, and CVA. Patient is currently taking metoprolol, hydralazine, clonidine, and aspirin. TRAVEL OUTSIDE OF THE [place] IN LAST 30 DAYS: No - Related Data Allergies/Adverse Reactions: Influenza Virus Vaccines Adverse Reaction (Unknown, Verified 10/18/19 14:15) Fever Past Medical History - General Information source: Patient, Relative, [facility] Records - Social History Smoking Status: Unknown if Ever Smoked Lives with: Family Family History: Reviewed & Not Pertinent - Past Medical History Cardiac Medical History: Reports: Hx Coronary Artery Disease, Hx Heart Attack, Hx Hypercholesterolemia, Hx Hypertension Neurological Medical History: Reports: Hx Cerebrovascular Accident - 2019 Endocrine Medical History: Reports: Hx Diabetes Mellitus Type 2, Hx Hypothyroidism Renal/ Medical History: Reports: Hx Renal InsufficiencyComment Only: Hx End Stage Renal Disease - 50% function of kidneys Psychiatric Medical History: Reports: Hx Depression Past Surgical History: Reports: Hx Cardiac Catheterization, Hx Cardiac Surgery - stents x 2, Hx Coronary Stent - To a stent in 2013, Hx Orthopedic Surgery - Immunizations Hx Diphtheria, Pertussis, Tetanus Vaccination: Yes Review of Systems - Review of Systems Constitutional: See HPI. denies: Fever, Recent illness EENT: No symptoms reported Cardiovascular: See HPI, Other - high systolic blood pressure. denies: Chest pain Respiratory: See HPI. denies: Cough, Short of breath Gastrointestinal: No symptoms reported Genitourinary: No symptoms reported Male Genitourinary: No symptoms reported Musculoskeletal: See HPI, Leg swelling - bilaterally Skin: No symptoms reported Hematologic/Lymphatic: No symptoms reported Neurological/Psychological: No symptoms reported -: Yes All other systems reviewed and negative Physical Exam - Vital signs Vitals: Resp Pulse Ox 20 97 10/21/20 17:13 10/21/20 17:13 - General General appearance: Appears well, Alert - HEENT Head: Normocephalic, Atraumatic Eyes: Normal Pupils: PERRL - Respiratory Respiratory status: No respiratory distress Chest status: Nontender Breath sounds: Normal Chest palpation: Normal - Cardiovascular Rhythm: Regular Heart sounds: Normal auscultation Murmur: No - Abdominal Inspection: Normal Distension: No distension Bowel sounds: Normal Tenderness: Nontender - Extremities General upper extremity: Normal inspection, Normal ROM Notes: 3+ pitting edema to the bilateral lower extremities. - Neurological Neuro grossly intact: Yes Cognition: Normal Radha Coma Scale Eye Opening: Spontaneous Radha Coma Scale Verbal: Oriented [place] Coma Scale Motor: Obeys Commands Radha Coma Scale Total: 15 - Psychological Associated symptoms: Normal affect, Normal mood - Skin Skin Temperature: Warm Skin Moisture: Dry Skin Color: Normal Course - Re-evaluation Re-evalutation: 10/21/20 21:36 MDM Delightful 75 year old is here with isolated SBP which is better here. Already on a number of anti htn meds and treatment here has mildly lower bp. Additionally he has lowwer ext swelling for months. No chest pain or sob. Consulted Up to date and will add low dose of chlorthalidone for better bp control. Also discussed return here precautions and follow up next week with pcp. He expressed understanding. He is bradycardic with known beta verna therapy. That is noted. - Vital Signs Vital signs: Temp Pulse Resp BP Pulse Ox 45 L 16 225/69 H 98 10/21/20 20:19 10/21/20 20:22 10/21/20 20:22 10/21/20 20:22 - Laboratory Result Diagrams: 10/21/20 17:02 10/21/20 17:02 Laboratory results interpreted by me: 10/21/20 10/21/20 10/21/20 17:02 17:02 17:02 RBC 3.78 L Hgb 10.8 L Hct 32.7 L RDW 17.4 H Chloride 108 H BUN 31 H Creatinine 1.96 H Est GFR ( Amer) 41 L Est GFR (MDRD) Non-Af 34 L Glucose 127 H Creatine Kinase 418 H CK-MB (CK-2) 4.69 H - Diagnostic Test Radiology reviewed: Image reviewed Radiology results interpreted by me: 10/21/20 21:36 cm ow neg is my interpretation Discharge - Discharge Clinical Impression: Hypertension Qualifiers: Hypertension type: unspecified Qualified Code(s): I10 - Essential (primary) hypertension Edema Qualifiers: Edema type: unspecified Qualified Code(s): R60.9 - Edema, unspecified Condition: Stable Disposition: HOME, SELF-CARE Instructions: Beta Blockers ([facility]), High Blood Pressure, Requiring Treatment ([facility]), High Blood Pressure ([facility]) Additional Instructions: Take your medicine as directed. See your doctor in follow up. Please return here for chest pain, shortness of breath, other problems or concerns. Forms: Elevated Blood Pressure Referrals: BRANDIN DASILVA MD [Primary Care Provider] - Follow up as needed I personally performed the services described in the documentation, reviewed and edited the documentation which was dictated to the scribe in my presence, and it accurately records my words and actions.
[2020-10-21] MEDS ORDERED: ENALAPRILAT DIHYDRATE INJ/PF 1.25 MG/1 ML SDV IV ONE (20:03)
[2020-10-21] MEDS ORDERED: HYDRALAZINE HCL INJ/PF 20 MG/1 ML SDV IV ONE (20:40)
--- NOTE | 2020-10-21 21:36 | RADIOLOGY REPORT (SQ) ---
EXAM DESCRIPTION: X-RAY CHEST- One View CLINICAL HISTORY: Hypertension COMPARISON: October 23, 2018 TECHNIQUE: Single view of the chest. FINDINGS: There are overlying EKG leads. There are no discrete air space infiltrates, pneumothoraces or pleural effusions. The pulmonary vascularity is normal. The cardiomediastinal silhouette is borderline enlarged. There are atherosclerotic vascular calcifications. No suspicious lytic or blastic osseous lesions are identified. IMPRESSION: There are no acute lung parenchymal findings. Borderline enlargement of the cardiac silhouette with evidence of atherosclerotic vascular disease.
[2020-10-21 22:03] VITALS: BP 195/64
== END 2020-10-21 22:04 | disposition home or self-care (01) ==
LOC: ER 16:26
DX: I10 Essential (primary) hypertension (principal); R60.9 Edema, unspecified; E78.5 Hyperlipidemia, unspecified; E11.9 Type 2 diabetes mellitus without complications; I25.10 Atherosclerotic heart disease of native coronary artery without angina pectoris; Z86.73 Personal history of transient ischemic attack (TIA), and cerebral infarction without residual deficits; I25.2 Old myocardial infarction
CPT/HCPCS: 93005; 99285; 96374; 96375; 36415; 82553; 82550; 85025; 80053; 84484; 71045; 93010; J1940; J0360; J3490

== ENCOUNTER 2020-10-27 07:47 | Outpatient (CLI) | payer MEDICARE, OTHER ==
[~2020-10-27 07:47] MED LIST changes: +FERUMOXYTOL (NON-ESRD) 510 MG/NS 100 ML IV PRN; -FERUMOXYTOL 510 MG in NORMAL SALINE 100 ML IV PRN; +NORMAL SALINE 250 ML IV PRN
[2020-10-27 08:06] VITALS: BP 179/105
== END 2020-10-27 08:45 | disposition home or self-care (01) ==
LOC: II 07:47 → 5TH 07:50 → II 08:45
PROVIDERS: ATTEND Internal Medicine Hematology & Oncology
DX: D50.9 Iron deficiency anemia, unspecified (principal); K90.9 Intestinal malabsorption, unspecified
CPT/HCPCS: 96365; Q0138; J7050

== ENCOUNTER 2020-11-24 12:46 | Outpatient (CLI) | payer MEDICARE, OTHER ==
[~2020-11-24 12:46] MED LIST changes: +DISPOSABLE SUBCUT PRN; +EPOETIN ALFA EPBX SUBCUT PRN; -FERUMOXYTOL (NON-ESRD) 510 MG/NS 100 ML IV PRN; -NORMAL SALINE 250 ML IV PRN; +[UNRECOGNIZED DRUG - OTHER] SUBCUT PRN
[2020-11-24 13:13] VITALS: BP 173/106
== END 2020-11-24 13:30 | disposition home or self-care (01) ==
LOC: II 12:46 → 5TH 13:28 → II 13:30
PROVIDERS: ATTEND Internal Medicine Hematology & Oncology
DX: N18.30 Chronic kidney disease, stage 3 unspecified (principal); D63.1 Anemia in chronic kidney disease
CPT/HCPCS: 96372; J3490; Q5106 ×2

== ENCOUNTER 2020-11-26 22:37 | Observation (INO) | payer MEDICARE, OTHER ==
--- NOTE | 2020-11-26 23:13 | RADIOLOGY REPORT (SQ) ---
EXAM DESCRIPTION: CHEST SINGLE VIEW 11/26/2020 10:49 PM [employer] CLINICAL HISTORY: 75 years Male, stroke like symptoms; ; COMPARISON: Prior study from 10/21/2020 FINDINGS: Single view is obtained. Cardiac and mediastinal contours are stable. Lungs are clear. No pleural effusion or pneumothorax. IMPRESSION: No acute disease.
--- NOTE | 2020-11-26 23:14 | RADIOLOGY REPORT (SQ) ---
EXAM DESCRIPTION: Site: CT HEAD WITHOUT RP: CT HEAD WITHOUT IV CONTRAST CLINICAL HISTORY: 75 years Male; stroke like symptoms; TECHNIQUE: Noncontrast CT head. All CT scans at this facility use dose modulation, iterative reconstruction, and/or weight based dosing when appropriate to reduce radiation dose to as low as reasonably achievable. COMPARISON: CT 09/17/2019 FINDINGS: Brain: 4.5 cm area of left frontal lobe encephalomalacia corresponds to the infarct seen on the prior exam. No acute hemorrhage or mass effect. No acute cortical edema. No midline shift. Sinuses: Visualized portions of paranasal sinuses and mastoids are clear. Calvarium: No acute calvarial fractures or focal lesion. IMPRESSION: 1. No acute intracranial findings. 2. Old left frontal lobe infarct
--- NOTE | 2020-11-26 23:15 | ER Document Report ---
ED Neuro Symptoms/Deficit - General Stated Complaint: STROKELIKE SYMPTOMS Time Seen by Provider: 11/26/20 22:46 TRAVEL OUTSIDE OF THE [place] IN LAST 30 DAYS: No - HPI Notes: Patient is a 75-year-old male with a past medical history of previous stroke 1 year ago with residual confusion who presents with stroke like symptoms. Sigifredo ling's history is provided by the son. He states he was sitting at the table and having a snack. When the son turned around, patient was slumped over and was confused. Episode occurred about 20 minutes prior to arrival to the ER. Patient was found to be hypertensive as well. His blood sugar reading read high. Initial NIH was difficult to obtain as patient was confused and unable to follow commands. He was alert. Patient does take Plavix and aspirin. - Related Data Allergies/Adverse Reactions: Influenza Virus Vaccines Adverse Reaction (Unknown, Verified 10/30/20 22:13) Fever Past Medical History - General Information source: Patient, Relative - Social History Smoking Status: Unknown if Ever Smoked Family History: Reviewed & Not Pertinent - Past Medical History Cardiac Medical History: Reports: Hx Coronary Artery Disease, Hx Heart Attack, Hx Hypercholesterolemia, Hx Hypertension Pulmonary Medical History: Denies: Hx Asthma Neurological Medical History: Reports: Hx Cerebrovascular Accident - 2019. Denies: Hx Seizures Endocrine Medical History: Reports: Hx Diabetes Mellitus Type 2, Hx Hyp othyroidism Renal/ Medical History: Reports: Hx Renal Insufficiency. Denies: Hx Peritoneal Dialysis. Comment Only: Hx End Stage Renal Disease - 50% function of kidneys GI Medical History: Denies: Hx Hepatitis, Hx Hiatal Hernia, Hx Ulcer Psychiatric Medical History: Reports: Hx Depression Infectious Medical History: Denies: Hx Hepatitis Past Surgical History: Reports: Hx Cardiac Catheterization, Hx Cardiac Surgery - stents x 2, Hx Coronary Stent - To a stent in 2013, Hx Orthopedic Surgery - Immunizations Hx Diphtheria, Pertussis, Tetanus Vaccination: Yes Review of Systems - Review of Systems Notes: NEUROLOGIC: No seizures. Positive for altered mental status and confusion. -: Yes ROS unobtainable due to patient's medical condition Physical Exam - General General appearance: Alert In distress: Moderate Notes: VITAL SIGNS: Hypertensive. GENERAL: Moderate distress. HEAD: Normal with no signs of head trauma. EYES: EOMI, conjunctiva normal, no discharge. EARS: Hearing grossly intact. NECK: Normal range of motion, no tenderness, CHEST: Clear breath sounds bilaterally. No wheezes, rales, or rhonchi. CARDIAC: Regular rate and rhythm. S1 and S2, without murmurs, gallops, or rubs. VASCULAR: No Edema. ABDOMEN: Normal and soft with no tenderness, no masses or pulsatile masses. MUSCULOSKELETAL: Good range of motion of all major joints. NEUROLOGIC: Alert. Altered mental status. Unable to follow commands. SKIN: Normal appearance with no rashes or lesions. Course - Re-evaluation Re-evalutation: 11/27/20 03:16 Patient was initially confused. He was unable to follow commands. After CT, I reassessed the patient and he is now able to lift both of his arms and his legs. He is following commands. He does still have some confusion. Family states that he does have baseline confusion from the previous stroke. I did not think that patient was a TPA candidate as his blood sugar read high. He also has improving symptoms. My NIH was 4. I discussed with Milagros, from [facility] neurology, who also agreed with the assessment. She recommended that we keep his blood pressure under 180 systolic. She also recommended that we treat the metabolic issues. Possibly, he could have had a hypertensive encephalopathy. Other differential includes confusion from the hyperglycemia. Also, he may have had a TIA. I again reassessed the patient, patient's is now in the room, she states that he is at baseline. She states he has not taken his blood sugar or his insulin for about a week. Patient will be admitted for further care. I will treat his blood sugar and his blood pressure. 11/27/20 05:14 - Laboratory Results Result Diagrams: 11/26/20 23:05 11/26/20 23:05 Critical Laboratory Results Reviewed: Yes Attending or Supervising Physician who Reviewed Labs: KAMALJIT GOLDSTEIN - Radiology Results Critical Radiology Results Reviewed: No Critical Results - EKG Interpretation by Me EKG shows normal: Sinus rhythm Rate: Normal Rhythm: NSR When compared to previous EKG there are: No significant change Additional EKG results interpreted by me: 11/27/20 00:47 Sinus rhythm at a rate of 52. QTC 451. No acute ST changes. Previous EKG is similar. Critical Care Note - Critical Care Note Total time excluding time spent on procedures (mins): 45 Comments: Upon my evaluation, this patient had a high probability of imminent or life- threatening deterioration due to hypertensive emergency, which required my direct attention, intervention, and personal management. I have personally provided 45 minutes of critical care time exclusive of time spent on separately billable procedures. Time includes review of laboratory data, radiology notes, discussion with consultants, and monitoring for potential decompensation. Interventions were performed as above. ED NIH Stroke Scale - NIH Stroke Scale *: 1. NIH scale should be completed with appropriate accompanying assessment tools. *: 2. The NIH should reflect what the patient is capable of doing and should not be coached by the clinician. 1a. Level of Consciousness: 0=Alert;keenly responsive -: 1=Drowsy -: 2=Obtunded -: 3=Coma/unresponsive or reflex to noxious stimuli. 1a. Responses: 0 1b. Orientation Questions: a. What month is it? -: b. How old are you? -: 0=Answers both questions correctly. -: 1=Answers one question correctly or patient is intubated or has orotracheal trauma. -: 2=Answers neither question correctly. 1b. Responses: 2 1c. Response to commands: a. Open and close eyes? -: b. Relay Mechanic and release hand? -: Credit is given despite weakness. Demonstration of task is permitted. Substitute command if hands cannot be used. -: 0=Performs both tasks correctly -: 1=Performs one task correctly -: 2=Performs neither task correctly 1c. Responses: 0 2. Gaze: Establish eye contact and instruct patient to "Follow my finger" -: 0=Normal -: 1=Partial gaze palsy. Gaze is abnormal in one or both eyes, but where forced deviation or total gaze paresis is not present. -: 2=Forced deviation or total gaze paresis. 2. Responses: 0 3. Visual Marie: Sees fingers in all four quadrants. -: 0=No visual loss. -: 1=Partial hemianopsia. -: 2=Complete hemianopsia. -: 3=Bilateral hemianopsia (including Cortical blindness) 3. Responses: 0 4. Facial Movement: Instruct patient to: -: a. Show me your teeth -: b. Raise your eyebrows -: c. Close your eyes -: d. Smile -: 0=Normal symmetrical movement -: 1=Minor paralysis (flattened nasolabial fold, asymmetry on smiling). -: 2=Partial paralysis (total or near total paralysis of lower face). -: 3=Complete paralysis of upper and lower face 4. Responses: 1 5. Motor functions (left arm): Alternate sides and extend each arm with palms down (90 degrees if sitting or 45 degrees for supine). -: 0=No drift;limb holds for full 10 seconds. -: 1=Drift; limb holds but drifts down before full 10 seconds, but does not hit bed. -: 2=Some effort against gravity; limb cannot get to or maintain position. -: 3=No effort against gravity; limb falls. -: 4=No movement. -: UN=Amputation, joint fusion, explain in comments. 5. Responses (left arm): 0 5. Motor Functions (right arm): Alternate sides and extend each arm with palms down (90 degrees if sitting or 45 degrees for supine). -: 0=No drift;limb holds for full 10 seconds. -: 1=Drift; limb holds but drifts down before full 10 seconds, but does not hit bed. -: 2=Some effort against gravity; limb cannot get to or maintain position. -: 3=No effort against gravity; limb falls. -: 4=No movement. -: UN=Amputation, joint fusion, explain in comments. 5. Responses (right arm): 0 6. Motor Functions (left leg): With patient lying supine, alternate sides and extend each leg (30 degrees always while supine). -: 0=No drift, leg holds position for full 5 seconds -: 1=Drift; leg falls before full 5 seconds but does not hit bed. -: 2=Some effort against gravity, leg falls to bed but some effort against gravity. -: 3=No effort against gravity, leg falls to bed immediately. -: 4=No movement. -: UN=Amputation, joint fusion; explain in comments. 6. Responses (left leg): 0 6. Motor Functions (right leg): With patient lying supine, alternate sides and extend each leg (30 degrees always while supine). -: 0=No drift, leg holds position for full 5 seconds -: 1=Drift; leg falls before full 5 seconds but does not hit bed. -: 2=Some effort against gravity, leg falls to bed but some effort against gravity. -: 3=No effort against gravity, leg falls to bed immediately. -: 4=No movement. -: UN=Amputation, joint fusion; explain in comments. 6. Responses (right leg): 0 7. Limb Ataxia: With eyes open instruct patient to: -: a. "Touch your finger to your nose". -: b. "Touch your heel to your nguyen" -: 0=Absent -: 1=Present in one limb. -: 2=Present in two limbs. -: UN=Amputation or joint fusion; explain in comments. 7. Responses: 0 8. Sensory: Test sensation using pinprick or noxious stimuli. Test as many body parts as possible. -: 0=Normal;no sensory loss -: 1=Mile to moderate sensory loss (patient feels pin prick but is less sharp on affected side). -: 2=Severe or total sensory loss. 8. Responses: 0 9. Best Language: Instruct patient to: -: a. "Describe what you see in this picture." -: b. "Name the items in this picture." -: c. "Read these sentences." -: 0=No aphasia, normal -: 1=Mild to moderate aphasia. -: 2=Severe aphasia -: 3=Mute, global aphasia, no usable speech or auditory comprehension. 9. Responses: 1 10. Articulation, Dysarthia: Instruct patient to: -: "Read these words" or "Repeat these words" -: 0=Normal -: 1=Mild to moderate; patient may slur some words but can be understood without difficulty. -: 2=Severe; patients speech so slurred as to be unintelligible in the absence of dysphasia. -: UN=Intubated or other physical barrier, explain in comments. 10. Responses: 0 11. Extinction or inattention: 0=No abnormality -: 1= Visual, tactile, auditory, spatial, or personal inattention or extinction to bilateral simulation in one or the sensory modalities. -: 2=Profound sharath-inattention or sharath-inattention to more than one modality; does not recognize own hand. 11. Responses: 0 Total Score: 4 Discharge - Discharge Clinical Impression: Hyperglycemia Altered mental status Qualifiers: Altered mental status type: transient alteration of awareness Qualified Code(s): R40.4 - Transient alteration of awareness Hypertension Qualifiers: Hypertension type: unspecified Qualified Code(s): I10 - Essential (primary) hypertension Condition: Stable Disposition: ADMITTED INPATIENT
[2020-11-26 23:31] LABS: ABSOLUTE BASOPHILS # (AUTO) 0.1 10^3/uL (0.0-0.2); ABSOLUTE EOSINOPHILS # (AUTO) 0.1 10^3/uL (0.0-0.6); ABSOLUTE LYMPHOCYTES (AUTO) 0.9 10^3/uL (0.5-4.7); ABSOLUTE MONOCYTES (AUTO) 0.7 10^3/uL (0.1-1.4); BASOPHILS % (AUTO) 1.3 % (0-2); EOSINOPHILS % (AUTO) 1.8 % (0-6); HEMATOCRIT 34.3 % (37.9-51.0); HEMOGLOBIN 11.3 g/dL (13.5-17.0); LYMPHOCYTES % (AUTO) 11.8 % (13-45); MEAN CORPUSCULAR HEMOGLOBIN 28.9 pg (27.0-33.4); MEAN CORPUSCULAR HGB CONC 33.1 g/dL (32.0-36.0); MEAN CORPUSCULAR VOLUME 87 fl (80-97); MONOCYTES % (AUTO) 8.6 % (3-13); PLATELET COUNT 201 10^3/uL (150-450); RED BLOOD COUNT 3.92 10^6/uL (4.35-5.55); RED CELL DISTRIBUTION WIDTH 16.1 % (11.5-14.0); SEGMENTED NEUTROPHILS % (AUTO) 76.5 % (42-78); TOTAL CELLS COUNTED % (AUTO) 100 %; WHITE BLOOD COUNT 7.9 10^3/uL (4.0-10.5)
[2020-11-26 23:33] LABS: INTERNATIONAL RATION (INR) 0.95; PARTIAL THROMBOPLASTIN TIME 32.8 SEC (23.5-35.8); PROTHROMBIN TIME 12.9 SEC (11.4-15.4)
[2020-11-26] MEDS ORDERED: NORMAL SALINE 1000 ML 1,000 ML IV ONE (23:33)
[2020-11-26] MEDS ORDERED: NICARDIPINE HCL RTU, ISO-OS 20 MG/200 ML RTUINJ IV PRN (23:40)
[2020-11-26 23:45] LABS: ALBUMIN 2.9 g/dL (3.5-5.0); ALKALINE PHOSPHATASE 147 U/L (38-126); ASPARTATE AMINO TRANSFERASE 20 U/L (17-59); BILIRUBIN,DIRECT 0.2 mg/dL (0.0-0.4); BILIRUBIN,TOTAL 0.3 mg/dL (0.2-1.3); BLOOD UREA NITROGEN 44 mg/dL (7-20); CALCIUM 8.9 mg/dL (8.4-10.2); CARBON DIOXIDE 25 mmol/L (22-30); CHLORIDE 96 mmol/L (98-107); CREATINE KINASE 95 U/L (55-170); POTASSIUM 5.1 mmol/L (3.6-5.0); TOTAL PROTEIN 5.9 g/dL (6.3-8.2)
[2020-11-26 23:50] LABS: ANION GAP 5 (5-19)
[2020-11-26 23:56] LABS: CREATINE KINASE MB 3.73 ng/mL (<4.55)
[2020-11-26 23:57] LABS: TROPONIN I 0.037 ng/mL
[2020-11-27 00:04] LABS: GLUCOSE 692 mg/dL (75-110)
[2020-11-27] MEDS ORDERED: INSULIN REG, HUMAN 100 UNIT/ML 3 ML VIAL (PYX) SUBCUT ONE (00:05)
[2020-11-27 01:18] LABS: VENOUS BLOOD BASE EXCESS -3.4 mmol/L; VENOUS BLOOD HCO3 21.7 mmol/L (20-32); VENOUS BLOOD PCO2 39.4 mmHg (35-63); VENOUS BLOOD PH 7.36 (7.30-7.42)
[2020-11-27 01:26] LABS: APPEARANCE,URINE CLEAR; BILIRUBIN,URINE NEGATIVE (NEGATIVE); COLOR,URINE STRAW; GLUCOSE, URINE >=500 mg/dL (NEGATIVE); KETONES,URINE NEGATIVE (NEGATIVE); LEUKOCYTE ESTERASE,URINE NEGATIVE (NEGATIVE); NITRITE,URINE NEGATIVE (NEGATIVE); PROTEIN,URINE >=500 mg/dL (NEGATIVE); URINE SPECIFIC GRAVITY 1.021; UROBILINOGEN,URINE NEGATIVE mg/dL (<2.0)
[2020-11-27] MEDS ORDERED: NORMAL SALINE 1000 ML 1,000 ML IV PRN (04:29)
[2020-11-27] MEDS ORDERED: ACETAMINOPHEN 325 MG TABLET PO PRN (04:29)
[2020-11-27] MEDS ORDERED: ONDANSETRON HCL INJ/PF 4 MG/2 ML SDV IV PRN (04:29)
[2020-11-27] MEDS ORDERED: GLUCAGON,HUMAN RECOMB 1 MG INJ IM PRN (04:42)
[2020-11-27] MEDS ORDERED: DEXTROSE 40% GEL 15 GM TUBE PO PRN ×2 (04:42)
[2020-11-27] MEDS ORDERED: DEXTROSE 50%-WATER 25 GM/50 ML DISP.SYRIN IV PRN ×2 (04:42)
--- NOTE | 2020-11-27 04:53 | PDOC H&P ---
History of Present Illness Admission Date/PCP: GUNNER LOCKWOOD MD Patient complains of: Confusion History of Present Illness: DONNA BERG is a 75 year old male with a history of CAD, CVA, diabetes, hypertension, CKD who has been missing his antihypertensive and diabetic medications for the past week presents with with a sudden onset of confusion while he was having a snack. Patient is known to have confusion at baseline from the CVA he had a year ago. He was immediately brought into the the ED and arrived in 20 minutes after the start of symptoms. On arrival at the ED patient was still confused and was also noted to have facial asymmetry with NIH stroke score of 4 but after a brief stay at the ED during reassessment by ED physician symptoms resolved and the family reports he was back to his baseline. Patient had no loss of consciousness, abnormal body movement, head injury, loss of bowel or bladder control. During my evaluation, patient is oriented and is able to answer questions and she denies any chest pain, palpitation, dizziness, nausea, vomiting or diarrhea. He reports that he is blood sugar reading was high at home during the incident. Past Medical History Cardiac Medical History: Reports: Coronary Artery Disease, Myocardial Infarction, Hyperlipidema, Hypertension Pulmonary Medical History: Denies: Asthma Neurological Medical History: Denies: Seizures Endocrine Medical History: Reports: Diabetes Mellitus Type 2, Hypothyroidism Renal/ Medical History: Comment Only: End Stage Renal Disease - 50% function of kidneys GI Medical History: Denies: Hepatitis, Hiatal Hernia Psychiatric Medical History: Reports: Depression Hematology: Reports: Anemia - chronic Denies: Sickle Cell Disease Past Surgical History Past Surgical History: Reports: Cardiac Catheterization, Coronary Stent - To a stent in 2012, Orthopedic Surgery Social History Information Source: Patient, Emergency Med Personnel Lives with: Family Smoking Status: Unknown if Ever Smoked Frequency of Alcohol Use: None Hx Recreational Drug Use: No Drugs: None Hx Prescription Drug Abuse: No - Advance Directive Resuscitation Status: Full Code Family History Family History: Reviewed & Not Pertinent Parental Family History Reviewed: Yes Children Family History Reviewed: Yes Sibling(s) Family History Reviewed.: Yes Medication/Allergy Home Medications: Clonidine HCl 0.2 mg PO BID 07/07/16 Aspirin [Ecotrin 81 mg EC Tablet] 81 mg PO DAILY 09/17/19 Atorvastatin Calcium [Lipitor 80 mg Tablet] 80 mg PO QHS 09/17/19 Ezetimibe [Zetia 10 mg Tablet] 10 mg PO DAILY 09/17/19 Hydralazine HCl 100 mg PO TID 09/17/19 Isosorbide Mononitrate [Imdur 30 mg Tablet.er] 30 mg PO DAILY 09/17/19 Levothyroxine Sodium [Synthroid 0.05 mg Tablet] 50 mcg PO DAILY 09/17/19 Magnesium Oxide [Magnesium] 500 mg PO DAILY 09/17/19 Clopidogrel Bisulfate [Plavix 75 mg Tablet] 75 mg PO DAILY #30 tablet 09/19/19 Metoprolol Succinate [Toprol XL 100 mg Tablet] 100 mg PO DAILY #30 tab.sr.24h 09/19/19 Ondansetron [Zofran Odt 4 mg Tablet] 1 tab PO Q6HP PRN #30 tab.rapdis 09/25/19 Sucralfate [Carafate 1 gm Tablet] 1 gm PO ACHS #20 tablet 09/25/19 Polyethylene Glycol 3350 [Miralax Powder 17 gm/Packet] 1 packet PO DAILY #1 pkg 12/15/19 Chlorthalidone [Hygroton 25 mg Tablet] 12.5 mg PO DAILY #30 tablet 10/21/20 Cefdinir 300 mg PO BID 10 Days #20 capsule 10/31/20 Allergies/Adverse Reactions: Influenza Virus Vaccines Adverse Reaction (Unknown, Verified 10/30/20 22:13) Fever Review of Systems Constitutional: ABSENT: chills, fever(s), headache(s), weight gain, weight loss Eyes: ABSENT: visual disturbances Ears: ABSENT: hearing changes Nose, Mouth, and Throat: ABSENT: as per HPI, headache(s), mouth pain, sore throat, vertigo, other Cardiovascular: ABSENT: chest pain, dyspnea on exertion, edema, orthropnea, palpitations Respiratory: ABSENT: cough, hemoptysis Gastrointestinal: ABSENT: abdominal pain, constipation, diarrhea, hematemesis, hematochezia, nausea, vomiting Genitourinary: ABSENT: dysuria, hematuria Musculoskeletal: ABSENT: joint swelling Integumentary: ABSENT: rash, wounds Neurological: PRESENT: as per HPI Psychiatric: ABSENT: anxiety, depression, homidical ideation, suicidal ideation Endocrine: ABSENT: cold intolerance, heat intolerance, polydipsia, polyuria Hematologic/Lymphatic: ABSENT: easy bleeding, easy bruising Physical Exam Vital Signs: Temp Pulse Resp BP Pulse Ox 97.9 F 50 L 14 160/66 H 98 11/27/20 03:00 11/27/20 02:50 11/27/20 04:01 11/27/20 04:01 11/27/20 04:01 Intake & Output 11/25/20 11/26/20 11/27/20 06:59 06:59 06:59 Intake Total 1105 Balance 1105 Weight 81.1 kg Additional comments: GENERAL APPEARANCE: Alert and oriented, in no acute distress HEENT: Normocephalic and atraumatic. Moist oral mucosa NECK: Supple. No lymphadenopathy or tenderness. No carotid bruit. No JVD CHEST: Symmetric. Nontender to palpation. LUNGS: Clear with good air entry bilaterally. No wheezing or crackles HEART: Regular rate and rhythm with normal S1 and S2. No murmurs, gallops, or rubs. ABDOMEN: soft, active bowel sounds, no direct or rebound tenderness. No organomegaly detected. EXTREMITIES: No cyanosis, clubbing, or edema. MUSCULOSKELETAL: No deformity, atrophy or swelling noted PSYCHIATRIC: Appropriate mood and affect. SKIN: Warm, dry, and well perfused. No lesions or rashes are noted. NEUROLOGIC: Cranial nerves II through XII grossly intact Power was 5/5 in all upper and lower extremities Patient to light touch intact in all extremities Reflexes: +2 symmetrically at biceps, wrist, knee and ankle. No clonus Babinski upgoing Results Laboratory Results: 11/26/20 23:05 11/26/20 23:05 11/26/20 11/26/20 11/27/20 23:05 23:05 00:45 WBC 7.9 RBC 3.92 L Hgb 11.3 L Hct 34.3 L MCV 87 MCH 28.9 MCHC 33.1 RDW 16.1 H Plt Count 201 Seg Neutrophils % 76.5 VBG pH VBG pCO2 VBG HCO3 VBG Base Excess Sodium 125.7 L Potassium 5.1 H Chloride 96 L Carbon Dioxide 25 Anion Gap 5 BUN 44 H Creatinine 2.75 H Est GFR ( Amer) 27 L Glucose 692 H* Calcium 8.9 Total Bilirubin 0.3 AST 20 Alkaline Phosphatase 147 H Total Protein 5.9 L Albumin 2.9 L Urine Color STRAW Urine Appearance CLEAR Urine pH 6.0 Ur Specific [place] 1.021 Urine Protein >=500 H Urine Glucose (UA) >=500 H Urine Ketones NEGATIVE Urine Blood NEGATIVE Urine Nitrite NEGATIVE Ur Leukocyte Esterase NEGATIVE Urine WBC (Auto) 2 Urine RBC (Auto) 0 11/27/20 01:08 WBC RBC Hgb Hct MCV MCH MCHC RDW Plt Count Seg Neutrophils % VBG pH 7.36 VBG pCO2 39.4 VBG HCO3 21.7 VBG Base Excess -3.4 Sodium Potassium Chloride Carbon Dioxide Anion Gap BUN Creatinine Est GFR ( Amer) Glucose Calcium Total Bilirubin AST Alkaline Phosphatase Total Protein Albumin Urine Color Urine Appearance Urine pH Ur Specific [place] Urine Protein Urine Glucose (UA) Urine Ketones Urine Blood Urine Nitrite Ur Leukocyte Esterase Urine WBC (Auto) Urine RBC (Auto) 11/26/20 11/26/20 23:05 23:05 Creatine Kinase 95 CK-MB (CK-2) 3.73 Troponin I 0.037 Impressions: Chest X-Ray 11/26/20 22:49 IMPRESSION: No acute disease. Head CT 11/26/20 22:49 IMPRESSION: 1. No acute intracranial findings. 2. Old left frontal lobe infarct Assessment and Plan - Diagnosis (1) Acute encephalopathy Is this a current diagnosis for this admission?: Yes Plan: Patient presented with acute onset change in his mental status which has resolved to baseline Likely differentials include hypertensive encephalopathy, hypoglycemia, TIA Head CT without contrast was negative for acute intracranial findings, but was positive for old left frontal lobe infarct Currently has no focal neurologic deficit Patient not candidate for TPA due to marked hyperglycemia Continue optimally managing hypertension and hyperglycemia Ordered MRI head, carotid Doppler and echocardiogram On telemetry monitoring Keep him n.p.o. until swallow eval Fall precaution, neurochecks and aspiration precaution Continue with aspirin and atorvastatin (2) Stroke-like symptoms Is this a current diagnosis for this admission?: Yes Plan: Patient has acute confusion and facial asymmetry which resolved spontaneously in less than an hour Symptoms quickly due to hyperglycemia or hypertensive encephalopathy CTA head showed chronic left frontal lobe infarct but there was no acute finding NIH stroke score was 4, patient not candidate for TPA On telemetry, neuro check, seizure, fall precautions N.p.o. until swallow evaluation PT/OT, speech therapy Continue aspirin Plavix and atorvastatin Follow-up with your MRI, echo and carotid Doppler (3) Hyperglycemia due to type 2 diabetes mellitus Is this a current diagnosis for this admission?: Yes Plan: Patient has been missing all his medications for the past 1 week Blood sugar on presentation was 690. Likely contributing to acute change in his mental status and neurologic changes Patient was given insulin ER and blood sugar improved to the 400s Currently placed on sliding scale insulin hypoglycemia protocol and Accu-Cheks Will place him on basal insulin once he passes swallow eval and started on diet We will obtain A1c (4) Hypertensive emergency Is this a current diagnosis for this admission?: Yes Plan: Blood pressure was 234/77 on presentation Patient was placed on nicardipine drip at the ED Currently systolic blood pressure ranging 160s to 180s Nicardipine drip has been stopped Hold off on antihypertensive medication for now follow permissive hypertension EKG showed no ST-T wave changes Trending cardiac enzymes BUN/creatinine around his baseline Chest x-ray showed no sign of flash pulmonary edema Closely monitor vitals (5) CAD (coronary artery disease) Qualifiers: Associated angina: with unspecified angina Is this a current diagnosis for this admission?: Yes Plan: Currently denies any chest pain Continue aspirin, Plavix and atorvastatin (6) CKD (chronic kidney disease) Qualifiers: Chronic kidney disease stage: unspecified stage Qualified Code(s): N18.9 - Chronic kidney disease, unspecified Is this a current diagnosis for this admission?: Yes Plan: Likely due to poorly controlled diabetes and hypertension BUN/creatinine around baseline Patient was hydrated at the ED Will continue monitoring BMP (7) Hypertension Qualifiers: Hypertension type: unspecified Qualified Code(s): I10 - Essential (primary) hypertension Is this a current diagnosis for this admission?: Yes Plan: Patient present elevateded with hypertensive emergency and currently being m anaged for strokelike symptoms Continue management as stated above (8) CVA (cerebral vascular accident) Qualifiers: CVA mechanism: occlusion Precerebral and cerebral artery: middle cerebral artery Laterality of affected vessel: left Qualified Code(s): I63.512 - Cerebral infarction due to unspecified occlusion or stenosis of left middle cerebral artery Is this a current diagnosis for this admission?: Yes Plan: Patient has a history of CVA a year ago CT head showed old left frontal lobe infarct Currently admitted with symptoms concerning for TIA Continue aspirin, Plavix and high intensity statin - Time Time Spent with patient: 35 or more minutes Total Critical Time (Minutes): 45 Medications reviewed and adjusted accordingly: Yes Anticipated Discharge Disposition: Home, Self Care Anticipated Discharge Timeframe: within 48 hours - Inpatient Certification Based on my medical assessment, after consideration of the patient's comorbidities, presenting symptoms, or acuity I expect that the services needed warrant INPATIENT care.: Yes I certify that my determination is in accordance with my understanding of Medicare's requirements for reasonable and necessary INPATIENT services [42 CFR 412.3e].: Yes Medical Necessity: Significant Comorbidiites Make Outpatient Treatment Too Risk y, Need For Continuous Telemetry Monitoring, Need for Neurological Checks, Risk of Complication if Not Cared For in Hospital Post Hospital Care: D/C or Transfer Summary
[2020-11-27 06:36] LABS: BLOOD UREA NITROGEN 40 mg/dL (7-20); CALCIUM 8.6 mg/dL (8.4-10.2); POTASSIUM 4.7 mmol/L (3.6-5.0)
[2020-11-27 06:41] LABS: CARBON DIOXIDE 25 mmol/L (22-30); CHLORIDE 101 mmol/L (98-107)
[2020-11-27 06:49] LABS: ANION GAP 4 (5-19)
[2020-11-27 06:54] LABS: GLUCOSE 491 mg/dL (75-110)
[2020-11-27] MEDS ORDERED: INSULIN REG, HUMAN 100 UNIT/ML 3 ML VIAL (PYX) SUBCUT SCH (08:00)
--- NOTE | 2020-11-27 08:50 | EKG REPORT ---
SEVERITY:- ABNORMAL ECG - SINUS BRADYCARDIA PROBABLE LVH WITH SECONDARY REPOL ABNRM : Confirmed by: Ba Mckeon MD 27-Nov-2020 08:49:38
[2020-11-27] MEDS ORDERED: NICARDIPINE HCL RTU, ISO-OS 20 MG/200 ML RTUINJ IV PRN (09:03)
[2020-11-27] MEDS: HYDRALAZINE HCL 50 MG TABLET PO SCH ×2 (10:00→18:32)
[2020-11-27] MEDS: HEPARIN SOD (PORCINE) 5,000 UNIT/ML 1 ML VIAL SUBCUT SCH ×2 (10:00→22:31)
[2020-11-27] MEDS: ASPIRIN 81 MG TABLET, CHEWABLE PO SCH (10:00)
[2020-11-27] MEDS: FAMOTIDINE 20 MG TABLET PO SCH ×2 (10:00→22:32)
[2020-11-27] MEDS ORDERED: GLIPIZIDE 5 MG TABLET PO ONE (10:00)
[2020-11-27] MEDS: CHLORTHALIDONE 25 MG TABLET PO SCH (10:00)
[2020-11-27] MEDS ORDERED: INSULIN NPH (ISOPHANE), HUMAN 100 UNIT/ML 3 ML SUBCUT ONE (10:00)
[2020-11-27] MEDS: CLOPIDOGREL BISULFATE 75 MG TABLET PO SCH (10:00)
--- NOTE | 2020-11-27 11:32 | RADIOLOGY REPORT (SQ) ---
EXAM DESCRIPTION: MRI HEAD WITHOUT IMAGES COMPLETED DATE/TIME: 11/27/2020 11:20 am REASON FOR STUDY: Strokelike symptoms COMPARISON: CT dated 11/26/2020. TECHNIQUE: Multiplanar imaging includes non-contrasted T1, T2, FLAIR, and diffusion with ADC map seq uences. Images stored on PACS. LIMITATIONS: None. FINDINGS: ANATOMY: No anomalies. Normal vascular flow voids. Incidental empty sella. CSF SPACES: Normal in size and contour. No hemorrhage. CEREBRUM: Sulci and gyri normal in size and contour. Old infarct in the left frontal lobe. Otherwis e normal white matter signal on FLAIR imaging. No evidence of hemorrhage, mass, or extraaxial fluid collection. POSTERIOR FOSSA: No signal alteration. No hemorrhage. No edema, masses or mass effect. Internal julio cesar tory canals, cerebello-pontine angles, mastoids normal. DIFFUSION IMAGING: Negative for acute or sub-acute infarction. ORBITS: No masses. Globes normal. PARANASAL SINUSES: No fluid levels. Mucosa normal. OTHER: No other significant finding. IMPRESSION: OLD INFARCT IN THE LEFT FRONTAL LOBE. NO ACUTE FINDINGS. EVIDENCE OF ACUTE STROKE: NO. TECHNICAL DOCUMENTATION: JOB ID: [id number] 2010 [employer]- All Rights Reserved Reading location - IP/workstation name: [email or web address]
[2020-11-27] MEDS: INSULIN LISPRO 100 UNIT/ML 3 ML VIAL SUBCUT SCH ×3 (12:11→22:32)
[2020-11-27] MEDS ORDERED: NIFEDIPINE 30 MG TAB.ER.24 PO ONE (14:00)
[2020-11-27] MEDS: MAGNESIUM OXIDE 400 MG TABLET PO SCH (18:32)
[2020-11-27] MEDS: CLONIDINE HCL 0.2 MG TABLET PO SCH ×2 (18:33→22:36)
[2020-11-27] MEDS: GLIPIZIDE 5 MG TABLET PO SCH (18:33)
--- NOTE | 2020-11-27 18:57 | RADIOLOGY REPORT (SQ) ---
EXAM DESCRIPTION: CAROTID DOPPLER IMAGES COMPLETED DATE/TIME: 11/27/2020 6:37 pm REASON FOR STUDY: possible tia COMPARISON: 2016 EXAM PARAMETERS: TECHNIQUE:Grayscale ultrasound, Doppler velocity and spectra, and color Doppler jonn ges acquired of the extra-cranial carotid and vertebral arteries. Images stored on PACS. LIMITATIONS: None. FINDINGS: RIGHT CAROTID CCA Velocities: Within normal limits. ICA Velocities Peak systolic 1.6 m/s. End diastolic 0.22 m/s. Proximal ICA/CCA peak systolic ratio 1.5. Heterogeneous plaque. 50- 69% internal carotid narrowing. LEFT CAROTID CCA Velocities: Within normal limits. ICA Velocities Peak systolic 0.86 m/s. End diastolic 0.18 m/s. Proximal ICA/CCA peak systolic ratio 1.3. Plaque with less than 50% vessel narrowing. VERTEBRAL ARTERIES: Antegrade flow. Normal waveforms. SUBCLAVIAN ARTERIES: No finding. OTHER: Markedly elevated velocities in the left external carotid suggestive of significant stenosis. IMPRESSION: 1. 50- 69% right internal carotid narrowing. 2. No hemodynamically significant left internal carotid narrowing. 3. High-grade stenosis left external carotid. COMMENT: PQRS 3100F: Velocity criteria are extrapolated from the diameter data as defined by the [place] [employer] in Ultrasound Consensus Conference. Radiology 2003: 229; 340-346 TECHNICAL DOCUMENTATION: JOB ID: [id number] [employer]- All Rights Reserved Reading location - IP/workstation name: [email or web address]
[2020-11-27] MEDS ORDERED: ATORVASTATIN CALCIUM 80 MG TABLET PO SCH (22:00)
[2020-11-27] MEDS ORDERED: INSULIN GLARGINE,HUM.REC.ANLOG 1,000 UNIT/10 ML VIAL SUBCUT SCH (22:00)
[2020-11-28] MEDS: HYDRALAZINE HCL 50 MG TABLET PO SCH ×3 (02:55→17:19)
[2020-11-28 04:42] LABS: ABSOLUTE BASOPHILS # (AUTO) 0.1 10^3/uL (0.0-0.2); ABSOLUTE EOSINOPHILS # (AUTO) 0.2 10^3/uL (0.0-0.6); ABSOLUTE LYMPHOCYTES (AUTO) 0.8 10^3/uL (0.5-4.7); ABSOLUTE MONOCYTES (AUTO) 0.5 10^3/uL (0.1-1.4); ABSOLUTE NEUT (AUTO) 6.8 10^3/uL (1.7-8.2); BASOPHILS % (AUTO) 0.8 % (0-2); EOSINOPHILS % (AUTO) 2.1 % (0-6); HEMOGLOBIN 10.6 g/dL (13.5-17.0); LYMPHOCYTES % (AUTO) 9.3 % (13-45); MEAN CORPUSCULAR HEMOGLOBIN 29.1 pg (27.0-33.4); MEAN CORPUSCULAR HGB CONC 34.2 g/dL (32.0-36.0); MEAN CORPUSCULAR VOLUME 85 fl (80-97); MONOCYTES % (AUTO) 5.6 % (3-13); PLATELET COUNT 196 10^3/uL (150-450); RED BLOOD COUNT 3.65 10^6/uL (4.35-5.55); RED CELL DISTRIBUTION WIDTH 16.6 % (11.5-14.0); SEGMENTED NEUTROPHILS % (AUTO) 82.2 % (42-78); TOTAL CELLS COUNTED % (AUTO) 100 %; WHITE BLOOD COUNT 8.3 10^3/uL (4.0-10.5)
[2020-11-28 05:07] LABS: ANION GAP 5 (5-19); BLOOD UREA NITROGEN 32 mg/dL (7-20); CALCIUM 8.4 mg/dL (8.4-10.2); CARBON DIOXIDE 22 mmol/L (22-30); CHLORIDE 105 mmol/L (98-107); GLUCOSE 158 mg/dL (75-110); POTASSIUM 3.9 mmol/L (3.6-5.0)
[2020-11-28] MEDS ORDERED: LEVOTHYROXINE SODIUM 0.05 MG TABLET PO SCH (06:00)
[2020-11-28] MEDS: CLONIDINE HCL 0.2 MG TABLET PO SCH ×2 (06:47→14:58)
[2020-11-28] MEDS: INSULIN LISPRO 100 UNIT/ML 3 ML VIAL SUBCUT SCH ×3 (08:48→17:20)
[2020-11-28] MEDS: GLIPIZIDE 5 MG TABLET PO SCH ×2 (08:49→17:20)
[2020-11-28] MEDS: CHLORTHALIDONE 25 MG TABLET PO SCH (08:49)
[2020-11-28] MEDS: HEPARIN SOD (PORCINE) 5,000 UNIT/ML 1 ML VIAL SUBCUT SCH (09:22)
[2020-11-28] MEDS: CLOPIDOGREL BISULFATE 75 MG TABLET PO SCH (09:22)
[2020-11-28] MEDS: FAMOTIDINE 20 MG TABLET PO SCH (09:23)
[2020-11-28] MEDS: ASPIRIN 81 MG TABLET, CHEWABLE PO SCH (09:23)
[2020-11-28] MEDS: MAGNESIUM OXIDE 400 MG TABLET PO SCH (09:23)
[2020-11-28] MEDS ORDERED: NIFEDIPINE 30 MG TAB.ER.24 PO SCH (10:00)
[2020-11-28] MEDS ORDERED: ESCITALOPRAM OXALATE 10 MG TABLET PO SCH (10:00)
--- NOTE | 2020-11-28 15:55 | PDOC DISCHARGE SUMMARY ---
Impression - Admit/DC Date/PCP Admission Date/Primary Care Provider: 11/27/20 04:48 GUNNER LOCKWOOD MD Discharge Date: 11/28/20 - Discharge Diagnosis (1) Transient neurologic deficit Is this a current diagnosis for this admission?: Yes (2) Acute encephalopathy Is this a current diagnosis for this admission?: Yes (3) Hyperosmolar hyperglycemic state (HHS) Is this a current diagnosis for this admission?: Yes (4) Old cerebrovascular accident without late effect Is this a current diagnosis for this admission?: Yes (5) Resistant hypertension Is this a current diagnosis for this admission?: Yes (6) External carotid artery stenosis Is this a current diagnosis for this admission?: Yes (7) Stenosis of right internal carotid artery Is this a current diagnosis for this admission?: Yes (8) Hypertensive emergency Is this a current diagnosis for this admission?: Yes (9) IDDM (insulin dependent diabetes mellitus) Is this a current diagnosis for this admission?: Yes (10) Acute kidney injury superimposed on CKD Is this a current diagnosis for this admission?: Yes - Additional Information Resuscitation Status: Full Code Discharge Diet: Cardiac Referrals: JANETT LAL DO [NO LOCAL MD] - BRANDIN DASILVA MD [ACTIVE STAFF] - GUNNER LOCKWOOD MD [Primary Care Provider] - Follow up as needed Prescriptions: Insulin Glargine,Hum.rec.anlog [Basaglar Kwikpen U-100] 20 unit SQ QHS #2 insuln.pen Clonidine HCl 0.3 mg PO TID #90 tablet Hydralazine HCl 100 mg PO TID #90 Chlorthalidone [Hygroton 25 mg Tablet] 25 mg PO DAILY #30 tablet Atorvastatin Calcium [Lipitor 40 mg Tablet] 40 mg PO QHS #30 tablet Home Medications: Aspirin [Ecotrin 81 mg EC Tablet] 81 mg PO DAILY 09/17/19 Levothyroxine Sodium [Synthroid 0.05 mg Tablet] 50 mcg PO DAILY 09/17/19 Magnesium Oxide [Magnesium] 500 mg PO DAILY 09/17/19 Escitalopram Oxalate [Lexapro 10 mg Tablet] 10 mg PO DAILY 11/27/20 Glipizide [Glipizide Xl] 10 mg PO DAILY 11/27/20 Nifedipine [Nifedipine ER] 30 mg PO DAILY 11/27/20 Atorvastatin Calcium [Lipitor 40 mg Tablet] 40 mg PO QHS #30 tablet 11/28/20 Chlorthalidone [Hygroton 25 mg Tablet] 25 mg PO DAILY #30 tablet 11/28/20 Clonidine HCl 0.3 mg PO TID #90 tablet 11/28/20 Hydralazine HCl 100 mg PO TID #90 11/28/20 Insulin Glargine,Hum.rec.anlog [Carl Wilson U-100] 20 unit SQ QHS #2 ins uln.pen 11/28/20 History of Present Illiness History of Present Illness: According to admitting provider: DONNA BERG is a 75 year old male with a history of CAD, CVA, diabetes, hypertension, CKD who has been missing his antihypertensive and diabetic medications for the past week presents with with a sudden onset of confusion while he was having a snack. Patient is known to have confusion at baseline from the CVA he had a year ago. He was immediately brought into the the ED and arrived in 20 minutes after the start of symptoms. On arrival at the ED patient was still confused and was also noted to have facial asymmetry with NIH stroke score of 4 but after a brief stay at the ED during reassessment by ED physician symptoms resolved and the family reports he was back to his baseline. Patient had no loss of consciousness, abnormal body movement, head injury, loss of bowel or bladder control. During my evaluation, patient is oriented and is able to answer questions and she denies any chest pain, palpitation, dizziness, nausea, vomiting or diarrhea. He reports that he is blood sugar reading was high at home during the incident. Hospital Course Hospital Course: Patient was admitted to the hospital for evaluation of acute metabolic encephalopathy. According to ER note, patient initially presented with confusion after his son found him slumped over and appearing very confused and unable to move his arms and legs. ER nursing notes also notes that there was left-sided facial droop. There was initial concern for stroke. His blood pressure was noted to be significantly elevated with systolic blood pressure in the 230s on presentation. His blood sugar was also significantly elevated in t he 600s with HHS. He was started on treatment for these. His transient neurological deficit is likely secondary to hypertensive encephalopathy or HHS. TIA is also a possibility here. Patient's neurologic deficit started to improve but not fully resolved at the time of the MRI. The MRI showed no evidence of any new stroke but showed his old stroke which involved his left frontal lobe. Patient was treated with nicardipine drip initially but was abruptly discontinued in the ED. His blood pressure went back up and was treated with medications after which his blood pressure improved. I have adjusted his home blood pressure regimen and increase his clonidine to 0.3 mg from 0.2 mg 3 times daily. Have also increase his chlorthalidone from 12.5 to 25 mg daily. I have given him some refills as well. He is to continue the rest of his blood pressure medications as well. His HHS was treated with fluids and giving insulin subcutaneously. It has improved now and I will be discharging him home on Basaglar 20 units which is increased from his 15 units he takes at home. He has resistant hypertension and GUNNAR on CKD stage III [improved] and will be following up with Dr. Dasilva for further work-up including renal arterial ultrasound. Carotid Dopplers show high-grade stenosis of his external carotid but the internal carotid stenosis is less than 70% as such does not warrant immediate intervention. I still have recommended that he follow-up with neurologist at [facility] where he used to go for further evaluation, surveillance and management of this. I have started him on atorvastatin. He is to continue his baby aspirin. Currently feels back to baseline. Physical Exam Vital Signs: Temp Pulse Resp BP Pulse Ox 97.8 F 64 17 152/83 H 99 11/28/20 11:55 11/28/20 11:55 11/28/20 11:55 11/28/20 11:55 11/28/20 11:55 Intake & Output 11/27/20 11/28/20 11/29/20 06:59 06:59 06:59 Intake Total 1105 1088 Output Total 1600 Balance 1105 -512 Weight 80.8 kg 81.1 kg General appearance: PRESENT: no acute distress, cooperative Eye exam: PRESENT: EOMI, PERRLA Neck exam: ABSENT: JVD Respiratory exam: PRESENT: clear to auscultation linda, unlabored Cardiovascular exam: PRESENT: +S1, +S2. ABSENT: tachycardia Neurological exam: PRESENT: alert, awake, oriented to person, oriented to place, oriented to time, oriented to situation Psychiatric exam: ABSENT: agitated, anxious Results Laboratory Results: WBC 8.3 10^3/uL (4.0-10.5) 11/28/20 04:13 RBC 3.65 10^6/uL (4.35-5.55) L 11/28/20 04:13 Hgb 10.6 g/dL (13.5-17.0) L 11/28/20 04:13 Hct 31.0 % (37.9-51.0) L 11/28/20 04:13 MCV 85 fl (80-97) 11/28/20 04:13 MCH 29.1 pg (27.0-33.4) 11/28/20 04:13 MCHC 34.2 g/dL (32.0-36.0) 11/28/20 04:13 RDW 16.6 % (11.5-14.0) H 11/28/20 04:13 Plt Count 196 10^3/uL (150-450) 11/28/20 04:13 Lymph % (Auto) 9.3 % (13-45) L 11/28/20 04:13 [place]ata % (Auto) 5.6 % (3-13) 11/28/20 04:13 Eos % (Auto) 2.1 % (0-6) 11/28/20 04:13 Baso % (Auto) 0.8 % (0-2) 11/28/20 04:13 Absolute Neuts (auto) 6.8 10^3/uL (1.7-8.2) 11/28/20 04:13 Absolute Lymphs (auto) 0.8 10^3/uL (0.5-4.7) 11/28/20 04:13 Absolute Monos (auto) 0.5 10^3/uL (0.1-1.4) 11/28/20 04:13 Absolute Eos (auto) 0.2 10^3/uL (0.0-0.6) 11/28/20 04:13 Absolute Basos (auto) 0.1 10^3/uL (0.0-0.2) 11/28/20 04:13 Seg Neutrophils % 82.2 % (42-78) H 11/28/20 04:13 PT 12.9 SEC (11.4-15.4) 11/26/20 23:05 INR 0.95 11/26/20 23:05 APTT 32.8 SEC (23.5-35.8) 11/26/20 23:05 VBG pH 7.36 (7.30-7.42) 11/27/20 01:08 VBG pCO2 39.4 mmHg (35-63) 11/27/20 01:08 VBG HCO3 21.7 mmol/L (20-32) 11/27/20 01:08 VBG Base Excess -3.4 mmol/L 11/27/20 01:08 Sodium 131.5 mmol/L (137-145) L 11/28/20 04:13 Potassium 3.9 mmol/L (3.6-5.0) 11/28/20 04:13 Chloride 105 mmol/L (98-107) 11/28/20 04:13 Carbon Dioxide 22 mmol/L (22-30) 11/28/20 04:13 Anion Gap 5 (5-19) 11/28/20 04:13 BUN 32 mg/dL (7-20) H 11/28/20 04:13 Creatinine 2.32 mg/dL (0.52-1.25) H 11/28/20 04:13 Est GFR ( Amer) 33 (>60) L 11/28/20 04:13 Est GFR (MDRD) Non-Af 28 (>60) L 11/28/20 04:13 Glucose 158 mg/dL (75-110) H 11/28/20 04:13 POC Glucose 264 mg/dL (70-110) H 11/28/20 11:56 Hemoglobin A1c % 11.1 % (4.7-6.0) H 11/27/20 05:40 Calcium 8.4 mg/dL (8.4-10.2) 11/28/20 04:13 Total Bilirubin 0.3 mg/dL (0.2-1.3) 11/26/20 23:05 Direct Bilirubin 0.2 mg/dL (0.0-0.4) 11/26/20 23:05 Neonat Total Bilirubin Not Reportable 11/26/20 23:05 Neonat Direct Bilirubin Not Reportable 11/26/20 23:05 Neonat Indirect Bili Not Reportable 11/26/20 23:05 AST 20 U/L (17-59) 11/26/20 23:05 ALT 19 U/L (<50) 11/26/20 23:05 Alkaline Phosphatase 147 U/L (38-126) H 11/26/20 23:05 Creatine Kinase 95 U/L (55-170) 11/26/20 23:05 CK-MB (CK-2) 3.73 ng/mL (<4.55) 11/26/20 23:05 Troponin I 0.038 ng/mL 11/27/20 13:22 Total Protein 5.9 g/dL (6.3-8.2) L 11/26/20 23:05 Albumin 2.9 g/dL (3.5-5.0) L 11/26/20 23:05 Urine Color STRAW 11/27/20 00:45 Urine Appearance CLEAR 11/27/20 00:45 Urine pH 6.0 (5.0-9.0) 11/27/20 00:45 Ur Specific Lyons 1.021 11/27/20 00:45 Urine Protein >=500 mg/dL (NEGATIVE) H 11/27/20 00:45 Urine Glucose (UA) >=500 mg/dL (NEGATIVE) H 11/27/20 00:45 Urine Ketones NEGATIVE mg/dL (NEGATIVE) 11/27/20 00:45 Urine Blood NEGATIVE (NEGATIVE) 11/27/20 00:45 Urine Nitrite NEGATIVE (NEGATIVE) 11/27/20 00:45 Urine Bilirubin NEGATIVE (NEGATIVE) 11/27/20 00:45 Urine Urobilinogen NEGATIVE mg/dL (<2.0) 11/27/20 00:45 Ur Leukocyte Esterase NEGATIVE (NEGATIVE) 11/27/20 00:45 Urine WBC (Auto) 2 /HPF 11/27/20 00:45 Urine RBC (Auto) 0 /HPF 11/27/20 00:45 Squamous Epi Cells Auto <1 /HPF 11/27/20 00:45 Urine Mucus (Auto) RARE /LPF 11/27/20 00:45 Urine Ascorbic Acid NEGATIVE (NEGATIVE) 11/27/20 00:45 Influenza A (RT-PCR) NEGATIVE (NEGATIVE) 11/27/20 14:15 Influenza B (RT-PCR) NEGATIVE (NEGATIVE) 11/27/20 14:15 RSV (RT-PCR) NEGATIVE (NEGATIVE) 11/27/20 14:15 SARS-CoV-2 Rap RNA(RT-PCR) NEGATIVE (NEGATIVE) 11/27/20 14:15 11/26/20 11/27/20 11/27/20 23:05 05:40 13:22 CK-MB (CK-2) 3.73 Troponin I 0.037 0.033 0.038 Impressions: Chest X-Ray 11/26/20 22:49 IMPRESSION: No acute disease. Head CT 11/26/20 22:49 IMPRESSION: 1. No acute intracranial findings. 2. Old left frontal lobe infarct Carotid Doppler Study 11/27/20 00:00 IMPRESSION: 1. 50- 69% right internal carotid narrowing. 2. No hemodynamically significant left internal carotid narrowing. 3. High-grade stenosis left external carotid. Head MRI 11/27/20 08:00 IMPRESSION: OLD INFARCT IN THE LEFT FRONTAL LOBE. NO ACUTE FINDINGS. EVIDENCE OF ACUTE STROKE: NO. Stroke Is this a Stroke Patient?: No Acute Heart Failure Is this a Heart Failure Patient?: No
[2020-11-28 17:19] VITALS: BP 196/74
== END 2020-11-28 17:55 | disposition home or self-care (01) ==
LOC: ER 22:37 → EH 11-27 04:48 → 5 11-27 12:29
PROVIDERS: ADMIT Student in an Organized Health Care Education/Training Program; ATTEND Internal Medicine
DX: R29.818 Other symptoms and signs involving the nervous system (principal); G93.40 Encephalopathy, unspecified; E11.00 Type 2 diabetes mellitus with hyperosmolarity without nonketotic hyperglycemic-hyperosmolar coma (NKHHC); Z86.73 Personal history of transient ischemic attack (TIA), and cerebral infarction without residual deficits; I16.1 Hypertensive emergency; I65.23 Occlusion and stenosis of bilateral carotid arteries; E11.22 Type 2 diabetes mellitus with diabetic chronic kidney disease; I12.9 Hypertensive chronic kidney disease with stage 1 through stage 4 chronic kidney disease, or unspecified chronic kidney disease; N18.30 Chronic kidney disease, stage 3 unspecified; N17.9 Acute kidney failure, unspecified; E03.9 Hypothyroidism, unspecified; E78.5 Hyperlipidemia, unspecified; I25.2 Old myocardial infarction; I25.119 Atherosclerotic heart disease of native coronary artery with unspecified angina pectoris; Z20.828 Contact with and (suspected) exposure to other viral communicable diseases; R29.704 NIHSS score 4; Z79.890 Hormone replacement therapy; Z95.5 Presence of coronary angioplasty implant and graft; Z91.14 Patient's other noncompliance with medication regimen
CPT/HCPCS: 93005; 99285; 96365; 96366; 36415 ×2; 82553; 82962 ×2; 82550; 85025 ×2; 85610; 85730; 0241U ×4; 80048 ×2; 80053; 81001; 84484 ×2; 83036; 82803; 93880; 70551; 71045; 70450; 93010; 97116; 97162; G0378 ×3; A9270 ×25; J1644 ×2; J7030 ×2; J3490 ×2; C9803; J1815

== ENCOUNTER 2020-12-22 11:00 | Outpatient (CLI) | payer MEDICARE, OTHER ==
[~2020-12-22 11:00] MED LIST changes: +[UNRECOGNIZED DRUG - OTHER] SUBCUT PRN; -[UNRECOGNIZED DRUG - OTHER] SUBCUT PRN
[2020-12-22 11:11] VITALS: BP 127/59
== END 2020-12-22 11:22 | disposition home or self-care (01) ==
LOC: II 11:00 → 5TH 11:03 → II 11:22
PROVIDERS: ATTEND Internal Medicine Hematology & Oncology
DX: N18.30 Chronic kidney disease, stage 3 unspecified (principal); D63.1 Anemia in chronic kidney disease
CPT/HCPCS: 96372; J3490; Q5106 ×2